=== PATIENT | female | born 1970 ===

== ENCOUNTER → 2020-02-19 16:17 | Outpatient (BNVA) | payer OTHER, SELFPAY | PROVIDERS: PCP Internal Medicine; Referring Provider Internal Medicine; Visit Provider Student in an Organized Health Care Education/Training Program | DX: M32.9 Systemic lupus erythematosus, unspecified (principal) | CPT/HCPCS: 99212 ==

== ENCOUNTER → 2020-04-04 15:50 | Outpatient (BNVA) | payer OTHER, SELFPAY | PROVIDERS: PCP Internal Medicine; Referring Provider Internal Medicine; Visit Provider Hospitalist | DX: Z76.89 Persons encountering health services in other specified circumstances (principal) ==

== ENCOUNTER 2020-06-25 13:44 | Outpatient (REF) | payer OTHER, SELFPAY ==
[2020-06-26 10:19] LABS: BV Int Neg Control Negative (Negative); BV Int Pos Control Positive (Positive)
[2020-06-26 20:51] LABS: C. trachomatis RNA TMA NOT DETECTED (NOT DETECTED); N. gonorrhoeae RNA TMA NOT DETECTED (NOT DETECTED)
== END 2020-06-25 13:45 | disposition home or self-care (01) ==
LOC: HO.LAB 13:44
PROVIDERS: PCP Internal Medicine; Visit Provider Obstetrics & Gynecology
DX: Z01.419 Encounter for gynecological examination (general) (routine) without abnormal findings (principal); N89.8 Other specified noninflammatory disorders of vagina
CPT/HCPCS: 36415; 87480; 87491; 87510; 87591; 87660

== ENCOUNTER 2020-07-15 08:38 | Outpatient (RCR) | payer OTHER, SELFPAY | END 2020-10-21 08:00 | disposition home or self-care (01) | LOC: HO.PT 08:38 | PROVIDERS: PCP Internal Medicine; Visit Provider Obstetrics & Gynecology | DX: N39.3 Stress incontinence (female) (male) (principal) | CPT/HCPCS: 97110; 97112; 97162 ==

== ENCOUNTER → 2020-08-04 15:32 | Outpatient (BNVA) | payer OTHER, SELFPAY | PROVIDERS: PCP Internal Medicine; Visit Provider Hospitalist | DX: J45.40 Moderate persistent asthma, uncomplicated (principal); M32.9 Systemic lupus erythematosus, unspecified | CPT/HCPCS: 99212 ==

== ENCOUNTER 2020-09-30 07:44 | Outpatient (REF) | payer OTHER, SELFPAY ==
--- NOTE | ~2020-09-30 | US_ITS ---
EXAMINATION: US ABDOMEN COMPLETE CLINICAL INFORMATION: Abdominal distention (gaseous). COMPARISON: Ultrasound abdomen complete dated 10/15/2015 and 11/05/2013. TECHNIQUE: Real-time imaging of the abdominal viscera. FINDINGS: PANCREAS: Normal. ABDOMINAL AORTA: The proximal, mid, and distal segments are normal in caliber. INFERIOR VENA CAVA: Visualized portions are normal. LIVER: Within the left hepatic lobe, a 5 mm simple cyst is incidentally seen. The liver is normal in size. The liver contour is normal. There is diffuse increased liver parenchymal echotexture. No focal hepatic lesion. There is no intrahepatic biliary duct dilatation seen. GALLBLADDER: There are small layering gallstones, without evidence of gallbladder wall thickening or pericholecystic fluid. COMMON BILE DUCT: Normal in caliber measuring 0.4 cm in diameter. RIGHT KIDNEY: Normal. No hydronephrosis. No renal calculi or focal parenchymal lesions. The kidney measures 13.0 cm in maximum dimension. LEFT KIDNEY: At the interpolar aspect, a 1.3 cm anechoic, simple cyst is seen, consistent with CT findings of 08/02/2019 (5:60 and 4:525). No hydronephrosis or renal calculi. The kidney measures 13.5 cm in maximum dimension. SPLEEN: A small splenule is noted. The spleen measures 12.7 cm in maximum dimension. FREE FLUID: None. US/US abdomen complete IMPRESSION: 1. There is generalized increase in hepatic echotexture, consistent with fatty infiltration or hepatocellular disease. Please correlate clinically. No focal hepatic mass or intrahepatic biliary dilatation is seen. 2. There is cholelithiasis, without cholecystitis or choledocholithiasis. 3. Simple left hepatic and left renal cyst are incidentally noted.
== END 2020-09-30 07:45 | disposition home or self-care (01) ==
LOC: HO.US 07:44
PROVIDERS: Visit Provider Internal Medicine
DX: R14.0 Abdominal distension (gaseous) (principal)
CPT/HCPCS: 76700

== ENCOUNTER → 2020-10-10 12:10 | Outpatient (BNVA) | payer OTHER, SELFPAY | PROVIDERS: PCP Internal Medicine; Visit Provider Physician Assistant | DX: E66.01 Morbid (severe) obesity due to excess calories (principal); Z68.41 Body mass index [BMI] 40.0-44.9, adult | CPT/HCPCS: 99202 ==

== ENCOUNTER → 2020-11-04 15:59 | Outpatient (BNVA) | payer OTHER, SELFPAY | PROVIDERS: PCP Internal Medicine; Referring Provider Internal Medicine; Visit Provider Physician Assistant | DX: E66.01 Morbid (severe) obesity due to excess calories (principal); Z68.41 Body mass index [BMI] 40.0-44.9, adult | CPT/HCPCS: 99212 ==

== ENCOUNTER → 2020-11-07 10:22 | Outpatient (BNVA) | payer OTHER, SELFPAY | PROVIDERS: PCP Internal Medicine; Referring Provider Internal Medicine; Visit Provider Surgery | DX: K80.20 Calculus of gallbladder without cholecystitis without obstruction (principal) | CPT/HCPCS: 99202 ==

== ENCOUNTER 2020-11-12 06:37 | Outpatient (REF) | payer OTHER, SELFPAY ==
--- NOTE | ~2020-11-12 | XR_ITS ---
EXAMINATION: XR CHEST CLINICAL INFORMATION: Obesity COMPARISON: Previous chest x-ray most recent May [address] July 2019 TECHNIQUE: 2 views of the chest were obtained. FINDINGS: The cardiac and mediastinal contours are normal. Lungs are clear. There is no pleural effusion or pneumothorax. Bony structures are unremarkable. XR/XR chest 2V IMPRESSION: Unremarkable examination.
--- NOTE | ~2020-11-12 | XR_ITS ---
EXAMINATION: XR HIP, RIGHT XR KNEE, RIGHT XR KNEE, LEFT CLINICAL INFORMATION: Systemic lupus with pain. COMPARISON: Knee studies of 09/07/2012 TECHNIQUE: Three views of each knee and 2 views of the right hip. FINDINGS: There is no evidence of acute fracture or dislocation of the right hip. There is minimal spurring seen about the superior acetabulum. Joint space appears to be narrowed superiorly. No destructive bony lesions appreciated. Views of the right knee do not demonstrate any evidence of acute fracture or dislocation. Knee joint spaces are maintained. No effusion is appreciated. Views of the left knee do not demonstrate any evidence of acute fracture or dislocation. Left knee joint spaces are maintained. No left knee effusion. XR/XR knee LT 3V IMPRESSION: No significant abnormality seen involving the knees bilaterally. Mild degenerative change of the right hip.
--- NOTE | ~2020-11-12 | XR_ITS ---
EXAMINATION: XR HIP, RIGHT XR KNEE, RIGHT XR KNEE, LEFT CLINICAL INFORMATION: Systemic lupus with pain. COMPARISON: Knee studies of 09/07/2012 TECHNIQUE: Three views of each knee and 2 views of the right hip. FINDINGS: There is no evidence of acute fracture or dislocation of the right hip. There is minimal spurring seen about the superior acetabulum. Joint space appears to be narrowed superiorly. No destructive bony lesions appreciated. Views of the right knee do not demonstrate any evidence of acute fracture or dislocation. Knee joint spaces are maintained. No effusion is appreciated. Views of the left knee do not demonstrate any evidence of acute fracture or dislocation. Left knee joint spaces are maintained. No left knee effusion. XR/XR knee RT 3V IMPRESSION: No significant abnormality seen involving the knees bilaterally. Mild degenerative change of the right hip.
--- NOTE | ~2020-11-12 | XR_ITS ---
EXAMINATION: XR HIP, RIGHT XR KNEE, RIGHT XR KNEE, LEFT CLINICAL INFORMATION: Systemic lupus with pain. COMPARISON: Knee studies of 09/07/2012 TECHNIQUE: Three views of each knee and 2 views of the right hip. FINDINGS: There is no evidence of acute fracture or dislocation of the right hip. There is minimal spurring seen about the superior acetabulum. Joint space appears to be narrowed superiorly. No destructive bony lesions appreciated. Views of the right knee do not demonstrate any evidence of acute fracture or dislocation. Knee joint spaces are maintained. No effusion is appreciated. Views of the left knee do not demonstrate any evidence of acute fracture or dislocation. Left knee joint spaces are maintained. No left knee effusion. XR/XR hip RT min 2V IMPRESSION: No significant abnormality seen involving the knees bilaterally. Mild degenerative change of the right hip.
[2020-11-12 07:13] LABS: MANUAL DIFF FLAG NO
[2020-11-12 07:14] LABS: Basophils Absolute Auto 0.1 X10*3/uL (0.0-0.2); Basophils Percent Auto 0.7 % (0-2); Eosinophils Absolute Auto 0.4 X10*3/uL (0.0-0.4); Eosinophils Percent Auto 5.1 % (0-4); Hematocrit 38.8 % (37-47); Hemoglobin 12.8 g/dl (12.0-16.0); Imm Gran Abs Auto 0.04 X10*3/uL (0.00-0.03); Imm Gran Pct Auto 0.5 % (0.0-0.4); Lymphocytes Absolute Auto 2.3 X10*3/uL (1.2-4.9); Lymphocytes Percent Auto 25.9 % (20-40); Mean Corpuscular Volume 84.9 fL (80-98); Mean Platelet Volume 12.7 fL (9.4-12.3); Monocytes Absolute Auto 0.4 X10*3/uL (0.1-1.2); Monocytes Percent Auto 4.4 % (2-11); Neutrophils Absolute Auto 5.5 X10*3/uL (2.0-8.3); Neutrophils Percent Auto 63.4 % (45-73); Platelet Count 183 X10*3/uL (160-400); Red Blood Count 4.57 X10*6/uL (4.20-5.50); Red Cell Distribution Width 15.4 % (11.0-16.0); White Blood Count 8.7 X10*3/uL (4.8-10.8)
[2020-11-12 07:41] LABS: C Reactive Protein 3.29 mg/dL (< or = 0.50)
[2020-11-12 07:45] LABS: Alanine Aminotransferase 18 U/L (0-31); Alkaline Phosphatase 127 U/L (39-117); Anion Gap 11 (12-20); Aspartate Amino Transferase 15 U/L (5-31); Bilirubin Total 0.4 mg/dL (0.0-1.0); Blood Urea Nitrogen 8 mg/dL (9-16); C Reactive Protein 3.21 mg/dL (< or = 0.50); Calcium 9.2 mg/dL (8.4-10.2); Carbon Dioxide 25 mmol/L (22-29); Chloride 108 mmol/L (96-108); Cholesterol 188 mg/dL; Estimated Glomerular Filt Rate > 60; Glucose Fasting 109 mg/dL (60-99); HDL Cholesterol 44 mg/dL; Iron 50 mcg/dL (30-160); LDL Cholesterol Calculated 127 mg/dl; Percent Iron Saturation 17 % (15-50); Sodium 140 mmol/L (135-145); Total Iron Binding Capacity 289 mcg/dL (228-428); Total Protein 7.1 g/dL (6.5-8.0); Triglycerides 85 mg/dL; Unsaturated Iron Binding 239 ug/dL
[2020-11-12 08:03] LABS: Thyroid Stimulating Hormone 3.48 uIU/mL (0.32-4.0)
[2020-11-12 08:13] LABS: Ferritin 132 ng/mL (10-250); TSH reflex Free T4 3.69 uIU/mL (0.32-4.0)
[2020-11-12 08:14] LABS: Estimated Average Glucose 111 mg/dL; Hemoglobin A1c % 5.5 %
[2020-11-12 08:28] LABS: Erythrocyte Sedimentation Rate 38 MM/HR (0-20)
[2020-11-12 09:54] LABS: Appearance Urine HAZY; Color Urine YELLOW; Glucose Urine UA NEG (NEG); Leukocyte Esterase Urine TRACE (NEG); Nitrite Urine NEG (NEG); Specific Gravity - Urine 1.025 (1.005-1.025); Urine Blood NEG (NEG); Urine Ketones NEG (NEG); Urine Protein NEG (NEG-TRACE)
[2020-11-12 10:00] LABS: Bacteria Urine TRACE /LPF; RBC Urine 0 /HPF (0); Squamous Epithelial Cell Urine 4+ /LPF
[2020-11-12 12:13] LABS: Vitamin D 25-OH Total 21.8 ng/mL (>30)
[2020-11-12 17:15] LABS: Folate 12.4 ng/mL (> or = 4.0); Vitamin B12 768 pg/mL (200-900)
[2020-11-13 02:38] LABS: CT PCR NOT DETECTED (Not Detect.); NG PCR NOT DETECTED (Not Detect.)
[2020-11-13 10:03] LABS: Insulin Level Total 43.3 uIU/mL
[2020-11-13 11:56] LABS: Complement C3 114 mg/dL (83-193)
[2020-11-13 15:11] LABS: Anti DNA DS Antibody 1 IU/mL
[2020-11-13 19:45] LABS: Calcium (PTHI) 9.1 mg/dL (8.6-10.4); PTHI 74 pg/mL (14-64)
[2020-11-15 22:01] LABS: Zinc 75 mcg/dL (60-130)
[2020-11-17 06:11] LABS: Vitamin B1 7 nmol/L (8-30)
[2020-11-17 12:41] LABS: Vitamin D 25-OH, D2 <4 ng/mL; Vitamin D 25-OH, D3 24 ng/mL; Vitamin D 25-OH, Total 24 ng/mL (30-100)
[2020-11-21 18:26] LABS: Vitamin A 29 mcg/dL (38-98)
== END 2020-11-12 06:38 | disposition home or self-care (01) ==
LOC: HO.LAB 06:37
PROVIDERS: Obstetrics & Gynecology; Student in an Organized Health Care Education/Training Program; PCP Internal Medicine; Visit Provider Physician Assistant
DX: M32.9 Systemic lupus erythematosus, unspecified (principal); N89.8 Other specified noninflammatory disorders of vagina; E55.9 Vitamin D deficiency, unspecified; M25.551 Pain in right hip; E66.01 Morbid (severe) obesity due to excess calories
CPT/HCPCS: 36415; 71046; 73502; 73562; 80053; 80061; 81001; 82306; 82607; 82728; 82746; 83036; 83525; 83540; 83970; 84425; 84443; 84590; 84630; 85025; 85652; 86140; 86160; 86225; 87491; 87591

== ENCOUNTER 2020-11-18 14:17 | Outpatient (REF) | payer OTHER, SELFPAY ==
--- NOTE | ~2020-11-18 | MM_ITS ---
EXAMINATION: MM DIAGNOSTIC DIGITAL BREAST TOMOSYNTHESIS, BILATERAL CLINICAL INFORMATION: Due for yearly. Follow-up probable benign bilateral calcifications. No known family history breast cancer. The lifetime risk of breast cancer based on the Tyrer-Cuzick Model is 6%. COMPARISON: Mammography: 05/15/2019, 05/04/2019, 09/14/2018, 09/05/2018 (BI-RADS 0, 08/18/2017; targeted left breast ultrasound 05/04/2019. TECHNIQUE: Digital breast tomosynthesis is performed in both the craniocaudal and mediolateral oblique views along with computer-aided detection (CAD). Synthesized 2D images are generated from the tomosynthesis. Additional views are obtained: Left CC, bilateral magnification CC, bilateral magnification ML. FINDINGS: There are scattered areas of fibroglandular density (ACR BI-RADS breast composition Category b). Breast tissue composition borders on heterogeneously dense. Parenchymal pattern is similar to prior exams. There is no developing density or interval mass or architectural abnormality. There is a known cyst central anterior 12:00 left breast similar to prior mammography and left breast ultrasound 05/04/2019. Left breast calcifications for follow-up appears stable in number and distribution to prior diagnostic studies and now considered to be benign. Right breast calcifications for follow-up are overall increased in number since 2019. There are some scattered increased calcifications central breast on CC view since prior imaging 05/15/2020. Subtle of the calcifications show layering milk of calcium pattern, as also noted on the contralateral left side. Right breast calcifications remain probably benign and will be reassessed again in 6 months. Patient had to leave office prior to results reporting. Technologist to call patient with results. MM/MM tomosynthesis diagnostic BI IMPRESSION: 1. Right: Right breast calcifications are overall slightly increased since 2019 but remain probably benign with no focal pleomorphic types or ductal distribution. 2. Left: No significant changes from prior studies. Left breast calcifications are now considered to be benign. ASSESSMENT: BI-RADS 3: Probably Benign RECOMMENDATION: Diagnostic right mammography in 6 months. This patient's information was entered into a reminder system with a target due date for their next mammogram.
== END 2020-11-18 14:18 | disposition home or self-care (01) ==
LOC: HO.MAMMO 14:17
PROVIDERS: Visit Provider Physician Assistant
DX: R92.1 Mammographic calcification found on diagnostic imaging of breast (principal); E66.01 Morbid (severe) obesity due to excess calories; Z68.41 Body mass index [BMI] 40.0-44.9, adult; Z71.3 Dietary counseling and surveillance
CPT/HCPCS: 77062; 77066; 99211; 99212

== ENCOUNTER 2020-11-18 16:45 | Outpatient (REF) | payer OTHER, SELFPAY ==
[2020-11-20 14:41] LABS: H Pylori Breath Test NOT DETECTED (NOT DETECTED)
== END 2020-11-18 16:46 | disposition home or self-care (01) ==
LOC: HO.LNP 16:45
PROVIDERS: Visit Provider Physician Assistant
DX: E66.01 Morbid (severe) obesity due to excess calories (principal)
CPT/HCPCS: 83013

== ENCOUNTER → 2020-12-01 07:51 | Outpatient (BNVA) | payer OTHER, SELFPAY | PROVIDERS: PCP Internal Medicine; Visit Provider Dietitian, Registered | DX: E66.9 Obesity, unspecified (principal) | CPT/HCPCS: 97802 ==

== ENCOUNTER → 2020-12-03 14:38 | Outpatient (REF) | payer OTHER, SELFPAY ==
--- NOTE | 2020-12-03 14:43 | ECG_ITS ---
Test Reason : MORBID OBESITY Blood Pressure : / mmHG Vent. Rate : 076 BPM Atrial Rate : 076 BPM P-R Int : 130 ms QRS Dur : 080 ms QT Int : 370 ms P-R-T Axes : 028 033 038 degrees QTc Int : 416 ms Normal sinus rhythm Nonspecific T wave abnormality Abnormal ECG When compared to the previous EKG of No significant changes seen Referred By: Luz Maria Aguilera Electronically Signed By:LATISHA GALLAGHER MD
== END ==
LOC: HO.CARD 14:38
PROVIDERS: PCP Internal Medicine; Visit Provider Physician Assistant
DX: E66.01 Morbid (severe) obesity due to excess calories (principal)
CPT/HCPCS: 93005

== ENCOUNTER → 2021-01-07 08:09 | Outpatient (BNVA) | payer OTHER, SELFPAY | PROVIDERS: PCP Internal Medicine; Referring Provider Internal Medicine; Visit Provider Dietitian, Registered ==

== ENCOUNTER → 2021-01-15 08:11 | Outpatient (BNVA) | payer OTHER, SELFPAY | PROVIDERS: PCP Internal Medicine; Visit Provider Dietitian, Registered | DX: E66.01 Morbid (severe) obesity due to excess calories (principal) | CPT/HCPCS: 97803 ==

== ENCOUNTER → 2021-02-05 08:01 | Outpatient (BNVA) | payer OTHER, SELFPAY | PROVIDERS: PCP Internal Medicine; Referring Provider Surgery; Visit Provider Dietitian, Registered ==

== ENCOUNTER 2021-02-14 18:23 | Emergency (ER) | payer OTHER, SELFPAY ==
--- NOTE | ~2021-02-14 | CT_ITS ---
EXAMINATION: CT ABDOMEN AND PELVIS WITH CONTRAST CLINICAL INFORMATION: Left lower quadrant tenderness. Diverticulitis. Right upper quadrant abdominal pain. Cholecystitis. COMPARISON: Abdominal ultrasound from 09/30/2020. TECHNIQUE: Multidetector volumetric imaging was performed through the abdomen and pelvis after the administration of 85 mL of Omnipaque 350 intravenous contrast. Sagittal and coronal reformatted images were obtained on the technologist's workstation. This CT examination was performed using dose optimization techniques as appropriate, variously including the following: *Automated exposure control. *Adjustment of mA and/or kV according to patient size (this includes techniques or standardized protocols for targeted exams where dose is matched to indication/reason for exam; i.e. extremities or head). *Use of iterative reconstruction technique. DLP: 883 mGy-cm. FINDINGS: Lower Chest: Minimal bilateral dependent atelectasis. Otherwise, no diffuse or focal parenchymal abnormalities in the visualized lung bases. No demonstrated abnormalities of the visualized cardiac structures. Liver, Biliary Ducts, and Gallbladder: The liver is enlarged, measuring 20 cm in craniocaudal dimension. Generalized decrease in attenuation of the hepatic parenchyma relative to the splenic parenchyma. No demonstrated focal hepatic lesions or biliary ductal dilatation. The gallbladder is partially distended. Dependently layering calcified gallstones. No pericholecystic fluid or significant gallbladder wall thickening. Pancreas: The pancreas is normal in appearance. Adrenal Glands: The adrenal glands are normal in appearance. Spleen: The spleen is mildly enlarged, measuring 13.3 cm in long axis. Multiple subcentimeter calcified granulomas throughout the spleen. There is a 2.9 cm nodular lesion suggestive of a prominent splenule along the hilum of the spleen. Kidneys and Ureters: The kidneys demonstrate symmetric nephrograms without evidence of nephrolithiasis or hydronephrosis. There is a 1.2 cm exophytic cyst along the interpolar region of the left kidney. Multiple additional subcentimeter hypoattenuating lesions in the bilateral kidneys are too small to characterize by CT but statistically benign in etiology. No ureterolithiasis or hydroureter. Urinary Bladder: The urinary bladder is partially distended without focal wall thickening. No bladder calculi are demonstrated. Gastrointestinal System: The stomach is decompressed and therefore not well evaluated on this exam. The small bowel is of normal caliber without regions of abnormal wall enhancement. The cecum is folded into the right upper abdominal quadrant without evidence of obstruction. Otherwise, the colon is normal in appearance without focal wall thickening or pericolonic inflammatory change. Normal appendix. Genitourinary: There is a 1.5 cm hyperattenuating lesion in the anterior wall of the uterus suggestive of a uterine fibroid. No adnexal soft tissue masses. Intra-abdominal and Retroperitoneal Spaces: No intra-abdominal free fluid collections or gas. Faintly increased fat stranding throughout the mesenteric adipose tissue. Mildly increased number of subcentimeter lymph nodes scattered throughout the mesenteric adipose tissue. No pathologically enlarged mesenteric, retroperitoneal, or inguinal lymphadenopathy. Vasculature: The abdominal aorta is of normal contour and caliber. Musculoskeletal: Mild to moderate multilevel degenerative changes of the spine. Moderate degenerative disc disease at L5-S1. No lytic or sclerotic osseous lesions demonstrated. No soft tissue masses demonstrated. CT/CT abdomen pelvis w con IMPRESSION: 1. Nonspecific mild hepatosplenomegaly. Hepatic steatosis. 2. Cholelithiasis without evidence of cholecystitis. 3. Nonspecific mildly increased fat stranding and shotty lymph nodes throughout the mesentery. No pathologically enlarged lymphadenopathy. These changes are nonspecific and can be seen in the setting of a variety of etiologies, including idiopathic mesenteric panniculitis.
[2021-02-14 18:35] VITALS: BP 163/100; PULSE 99; RESP 18; TEMP 36.9; O2SAT 97; BMI 24.7
--- NOTE | 2021-02-14 19:09 | ED.GENADULT ---
HPI - General Adult General Chief complaint: Abdominal Pain Stated complaint: Abd pain Time Seen by Provider: 02/14/21 18:57 Source: patient Mode of arrival: ambulatory Limitations: no limitations History of Present Illness HPI narrative: 51-year-old female who presents emergency department for evaluation of lower abdominal pain. She states that the pain started yesterday. The pain came on gradually and got progressively worse. She describes the pain as a squeezing/stretching like pain which is constant but waxes and wanes in intensity. The pain is 8/10 at its worst. The patient had associated nausea with no vomiting. She also states that she has had 5 soft, diarrheal stools today. She states that after last soft stool she noted bright red blood on the toilet paper. She states she was feeling hot and cold but did not take her temperature. She denied frequency, urgency or dysuria. She denied chest pain, shortness of breath, dyspnea on exertion, or cough. The patient states that she was having right upper quadrant pain 3 weeks prior and had an ultrasound and was told that she had gallstones. She states she did follow-up with surgeon who did not recommend surgery at this time. And looking at the patient's radiology studies she had an ultrasound done on 09/30/2020 which revealed cholelithiasis without cholecystitis or choledocholithiasis, there were small layering gallstones without evidence gallbladder wall thickening or pericholecystic fluid. Patient had fatty liver and a 5 mm liver cyst. Related Data Home Medications Medication Instructions Recorded Confirmed albuterol sulfate 90 mcg/actuation 2 puff INHALATION Q6H PRN 02/19/20 11/18/20 aerosol inhaler ascorbic acid (vitamin C) 1,000 mg 500 mg PO DAILY 10/10/20 11/18/20 tablet (Vitamin C) lorazepam 0.5 mg tablet 0.5 mg PO DAILY PRN 10/10/20 11/18/20 turmeric 400 mg capsule 400 mg PO DAILY cap 11/18/20 11/18/20 Previous Rx's Medication Instructions Recorded budesonide-formoterol HFA 160 2 puff INHALATION BID 30 Days 08/04/20 mcg-4.5 mcg/actuation aerosol #10.2 g inhaler (Symbicort) montelukast 10 mg tablet 10 mg PO BEDTIME 30 Days #30 tab 08/04/20 (Singulair) cetirizine 10 mg tablet 10 mg PO DAILY #30 tab 10/30/20 cholecalciferol (vitamin D3) 1,250 1,250 mcg PO QWEEK 28 Days #4 cap 11/17/20 mcg (50,000 unit) capsule thiamine HCl (vitamin B1) 100 mg 100 mg PO DAILY 30 Days #30 tab 11/17/20 tablet furosemide 20 mg tablet 20 mg PO QAM 90 Days #90 tab 11/24/20 Allergies Allergy/AdvReac Type Severity Reaction Status Date / Time Seasonal Allergies Allergy Severe Difficulty Verified 11/18/20 16:29 Breathing Review of Systems Review of Systems: Yes all other systems are reviewed and are negative [facility] Past Medical History [facility] Narrative: Social history: The patient denies tobacco, alcohol and drug use. Medical History Abdominal bloating Asthma BMI 40.0-44.9, adult Cholelithiasis Family history of obesity History of asthma History of diastolic dysfunction History of vitamin D deficiency Hx of coronary artery disease Hx of hyperlipidemia Hx of systemic lupus erythematosus (SLE) Hx of varicose veins Lupus Lymphedema Morbid obesity Right hip pain Vitamin B1 deficiency Vitamin D deficiency Surgical History History of ear surgery Hx of cardiac cath Hx of tubal ligation Family History Family History Father Diabetes Cancer Paternal Grandfather Diabetes Maternal Aunt Cancer Mother Sudden Sister Arthritis Rheumatoid arthritis Hypothyroidism Sister No problems noted. Sister No problems noted. Brother Diabetes Brother No problems noted. Son No problems noted. Daughter No problems noted. Daughter No problems noted. Daughter Lupus Social History Social History Alcohol intake: never Patient Tobacco Use Status: Never used Tobacco Use of substances other than those prescribed or required for medical reasons: No Advance Directives: No Advance Directives Information Provided: Yes Gender identity: Female Physical Exam Vital Signs: Vital Signs: Last Vital Signs Temp 97.0 F 02/14/21 21:08 Pulse 76 02/14/21 21:08 Resp 16 02/14/21 21:08 BP 121/56 L 02/14/21 21:08 Pulse Ox 99 02/14/21 21:08 Body Mass Index 24.7 Const: General: cooperative and no acute distress Orientation/consciousness: oriented to person and oriented to place Limitations: no limitations HENMT: Head: Yes normal to inspection, Yes normocephalic and Yes atraumatic Ears: external ears normal General nose exam: Normal external nose present Face and sinus: Yes normal facial exam Mouth: Normal oral and palatal mucosa present Throat: Yes posterior oropharynx normal Eyes: General: appearance normal, both eyes and all related structures Pupils: Equal, round and reactive pupils present Neck: Neck: Yes normal visual inspection, Yes no lymphadenopathy, Yes trachea midline and Yes supple Chest: Chest palpation & inspection: normal inspection of the chest and normal palpation of entire chest wall Resp: Effort & Inspection: normal respiratory effort and able to speak in complete sentences Auscultation: clear to auscultation bilaterally Cardio: Rate: regular rate Rhythm: regular rhythm Heart sounds: S1 normal heart sound present, S2 normal heart sound present and no murmurs GI: Inspection: Yes obesity Palpation (GI): Soft to palpation, Tenderness to palpation present (GI) in the LLQ (Moderate) and in the RUQ (Mild, negative Ochoa sign) and no guarding Auscultation: normal bowel sounds Rectal Exam - Female: External hemorrhoid(s) present (Small, nontender, non bleeding) and heme negative stool (Stool was soft and brown) : General: Yes no CVA tenderness Back/Spine/Pelvis: Back: no CVA tenderness Skin: General skin exam: no rashes or lesions noted Neuro: General: oriented to person and oriented to place Cranial nerves: Yes CN's II-XII intact bilaterally and Yes Equal, round and reactive pupils present Cognition (Neuro): normal cognition Motor exam (neuro): 5/5 motor strength present throughout Extrem: General: Yes normal to inspection Psych: Appearance: grossly normal Speech and movement: Normal speech and movement present Affect: normal affect Attitude: cooperative Thought process: Normal thought process present Thought content: Normal thought content present Course Course Course Narrative: 51-year-old female who presents emergency department for evaluation of gradual onset of left lower quadrant pain which started yesterday is gotten progressively worse, the pain is now 8/10. She did have 5 soft diarrheal stools with bright red blood on the toilet pain at the end of her last bowel movement.. Revealed an elevated blood pressure of 163/100 otherwise were unremarkable. Abdominal exam did reveal mild right upper quadrant tenderness and moderate left lower quadrant tenderness. I ordered a CBC, CMP, lipase, urinalysis, CT scan of the abdomen pelvis with IV contrast to evaluate her pain. The patient was treated with Toradol 30 mg IV, Zofran 4 mg IV and normal saline x1 L. 2212: The patient is feeling better after the above treatment. The patient's laboratory evaluation was unremarkable except for a slight elevation in her lipase of 93, I do not think that she has pancreatitis. CT scan of the abdomen pelvis revealed the followin. Nonspecific mild hepatosplenomegaly. Hepatic steatosis. ?2. Cholelithiasis without evidence of cholecystitis. ?3. Nonspecific mildly increased fat stranding and shotty lymph nodes throughout the mesentery. No pathologically enlarged lymphadenopathy. These changes are nonspecific and can be seen in the setting of a variety of etiologies, including idiopathic mesenteric panniculitis. Given this finding, I suspect the patient has a viral infection causing her abdominal pain and I did discuss this with her. The patient was advised to take Tylenol and ibuprofen for pain. She was given printed and verbal instructions and discharged home. Medical Decision Making Lab Data Result diagrams: 02/14/21 19:39 02/14/21 19:39 Labs: Lab Results 02/14/21 02/14/21 02/14/21 Range/Units 19:39 19:39 19:53 WBC 9.6 (4.8-10.8) X10*3/uL RBC 4.64 (4.20-5.50) X10*6/uL Hgb 13.1 (12.0-16.0) g/dl Hct 39.1 (37-47) % MCV 84.3 (80-98) fL MCH 28.2 (27.0-33.0) pg MCHC 33.5 (31.0-35.0) g/dl RDW 15.2 (11.0-16.0) % Plt Count 161 (160-400) X10*3/uL MPV 12.3 (9.4-12.3) fL Immature Gran % (Auto) 0.4 (0.0-0.4) % Neut % (Auto) 71.6 (45-73) % Lymph % (Auto) 18.2 L (20-40) % [place] % (Auto) 4.6 (2-11) % Eos % (Auto) 4.9 H (0-4) % Baso % (Auto) 0.3 (0-2) % Lymph # (Auto) 1.8 (1.2-4.9) X10*3/uL [place] # (Auto) 0.4 (0.1-1.2) X10*3/uL Eos # (Auto) 0.5 H (0.0-0.4) X10*3/uL Baso # (Auto) 0.0 (0.0-0.2) X10*3/uL Abs Immat Gran (auto) 0.04 H (0.00-0.03) X10*3/uL Absolute Neuts (auto) 6.9 (2.0-8.3) X10*3/uL Absolute Nucleated RBC 0.000 (0.0-0.012) X10*3/uL Nucleated RBC % (auto) 0.0 (0.0-0.2) /100WBC Sodium 138 (135-145) mmol/L Potassium 4.0 (3.3-5.1) mmol/L Chloride 104 (96-108) mmol/L Carbon Dioxide 27 (22-29) mmol/L Anion Gap 11 L (12-20) BUN 9 (9-16) mg/dL Creatinine 0.74 (0.5-1.4) mg/dL Estim Creat Clear Calc 76.6 Estimated GFR > 60 Random Glucose 108 (60-115) mg/dL Calcium 9.4 (8.4-10.2) mg/dL Total Bilirubin 0.3 (0.0-1.0) mg/dL AST 16 (5-31) U/L ALT 19 (0-31) U/L Alkaline Phosphatase 149 H (39-117) U/L Total Protein 7.2 (6.5-8.0) g/dL Albumin 4.2 (3.5-5.0) g/dL Lipase 93 H (8-78) U/L Urine Color STRAW Urine Appearance CLEAR Urine pH 6.0 (5.0-8.0) Ur Specific [place] 1.010 (1.005-1.025) Urine Protein NEG (NEG-TRACE) MG/DL Urine Glucose (UA) NEG (NEG) MG/DL Urine Ketones NEG (NEG) MG/DL Urine Blood 3+ H (NEG) Urine Nitrite NEG (NEG) Ur Leukocyte Esterase NEG (NEG) Urine RBC 30-49 H (0) /HPF Urine WBC 0 (0-4) /HPF Ur Squamous Epith Cells 2+ /LPF Uric Acid Crystals TRACE /LPF Urine Bacteria TRACE /LPF Discharge Plan Discharge Clinical Impression: Abdominal pain, Panniculitis Patient Disposition: Home, Self-Care Instructions: Abdominal Pain (ED) Additional Instructions: Your blood work was unremarkable. Your CT scan of the abdomen pelvis did not reveal any specific cause of the pain except you do have some lymph nodes that are swollen and the fat around your intestines is inflamed, this is called panniculitis. Panniculitis is usually caused by a viral infection and can give you abdominal pain. Take ibuprofen 200 mg pills, 3 pills every 6 hours as needed for pain. Take Tylenol (acetaminophen) 500 mg pills, 2 pills every 4 to 6 hours as needed for pain. Follow-up with your doctor in 2 days. Please return to the emergency department if your symptoms get worse or if you develop any symptoms that are concerning to you. Please follow the abdominal pain obstructions above. Prescriptions: No Action cetirizine 10 mg tablet 10 mg PO DAILY Qty: 30 RF: 11 cholecalciferol (vitamin D3) 1,250 mcg (50,000 unit) capsule 1,250 mcg PO QWEEK 28 Days Qty: 4 RF: 1 thiamine HCl (vitamin B1) 100 mg tablet 100 mg PO DAILY 30 Days Qty: 30 RF: 1 furosemide 20 mg tablet 20 mg PO QAM 90 Days Qty: 90 RF: 0 turmeric 400 mg capsule 400 mg PO DAILY RF: 0 albuterol sulfate 90 mcg/actuation HFA aerosol inhaler 2 puff inhalation Q6H PRNRF: 0 budesonide-formoterol [Symbicort] 160-4.5 mcg/actuation HFA aerosol inhaler 2 puff inhalation BID 30 Days Qty: 10.2 RF: 11 montelukast [Singulair] 10 mg tablet 10 mg PO BEDTIME 30 Days Qty: 30 RF: 6 ascorbic acid (vitamin C) [Vitamin C] 1,000 mg tablet 500 mg PO DAILY RF: 0 lorazepam 0.5 mg tablet 0.5 mg PO DAILY PRNRF: 0
--- NOTE | 2021-02-14 19:18 | PC.NURSE ---
at bedside for primary eval
--- NOTE | 2021-02-14 19:29 | PC.NURSE ---
I CLIP ON SUNGLASSES INSPECTOR DR ALEJANDRE DURING PATIENT RECTAL EXAM .
[2021-02-14 19:45] LABS: MANUAL DIFF FLAG NO
[2021-02-14 19:46] LABS: Basophils Percent Auto 0.3 % (0-2); Eosinophils Absolute Auto 0.5 X10*3/uL (0.0-0.4); Eosinophils Percent Auto 4.9 % (0-4); Hematocrit 39.1 % (37-47); Hemoglobin 13.1 g/dl (12.0-16.0); Imm Gran Abs Auto 0.04 X10*3/uL (0.00-0.03); Imm Gran Pct Auto 0.4 % (0.0-0.4); Lymphocytes Absolute Auto 1.8 X10*3/uL (1.2-4.9); Lymphocytes Percent Auto 18.2 % (20-40); Mean Corpuscular HGB Conc 33.5 g/dl (31.0-35.0); Mean Corpuscular Hemoglobin 28.2 pg (27.0-33.0); Mean Corpuscular Volume 84.3 fL (80-98); Mean Platelet Volume 12.3 fL (9.4-12.3); Monocytes Absolute Auto 0.4 X10*3/uL (0.1-1.2); Monocytes Percent Auto 4.6 % (2-11); Neutrophils Absolute Auto 6.9 X10*3/uL (2.0-8.3); Neutrophils Percent Auto 71.6 % (45-73); Platelet Count 161 X10*3/uL (160-400); Red Blood Count 4.64 X10*6/uL (4.20-5.50); Red Cell Distribution Width 15.2 % (11.0-16.0); White Blood Count 9.6 X10*3/uL (4.8-10.8)
[2021-02-14] MEDS: ondansetron HCL 4 MG/2 ML VIAL IVPUSH (19:55)
[2021-02-14] MEDS: Ketorolac Tromethamine 15 MG/ML VIAL 30 MG IVPUSH (19:56)
[2021-02-14] MEDS: 0.9 % Sodium Chloride 1,000 ML 999 ML IV (20:00)
[2021-02-14 20:03] LABS: Alanine Aminotransferase 19 U/L (0-31); Albumin Level 4.2 g/dL (3.5-5.0); Alkaline Phosphatase 149 U/L (39-117); Anion Gap 11 (12-20); Aspartate Amino Transferase 16 U/L (5-31); Bilirubin Total 0.3 mg/dL (0.0-1.0); Blood Urea Nitrogen 9 mg/dL (9-16); Calcium 9.4 mg/dL (8.4-10.2); Carbon Dioxide 27 mmol/L (22-29); Chloride 104 mmol/L (96-108); Creatinine Clr Calc Pharmacy 76.6; Estimated Glomerular Filt Rate > 60; Glucose Random 108 mg/dL (60-115); Lipase 93 U/L (8-78); Sodium 138 mmol/L (135-145); Total Protein 7.2 g/dL (6.5-8.0)
[2021-02-14 20:05] LABS: Appearance Urine CLEAR; Color Urine STRAW; Glucose Urine UA NEG (NEG); Leukocyte Esterase Urine NEG (NEG); Nitrite Urine NEG (NEG); UACC Culture Trigger NO; Urine Blood 3+ (NEG); Urine Ketones NEG (NEG); Urine Protein NEG (NEG-TRACE)
[2021-02-14 20:09] LABS: RBC Urine 30-49 /HPF (0)
[2021-02-14 20:10] LABS: Squamous Epithelial Cell Urine 2+ /LPF
[2021-02-14 20:11] LABS: WBC Urine 0 /HPF (0-4)
[2021-02-14 20:12] LABS: Bacteria Urine TRACE /LPF
[2021-02-14 20:13] LABS: Uric Acid Crystals Urine TRACE /LPF
[2021-02-14] MEDS: iohexoL 350 MG/ML 100 ML INFUS..BTL IV (20:39)
[2021-02-14 21:00] VITALS: RESP 16
[2021-02-14 21:08] VITALS: BP 121/56; PULSE 76; RESP 16; TEMP 36.1; O2SAT 99
[2021-02-14 22:19] VITALS: BP 101/57; PULSE 74; RESP 16; TEMP 36.2; O2SAT 100
== END 2021-02-14 22:33 | disposition home or self-care (01) ==
PROVIDERS: Emergency Provider Emergency Medicine Emergency Medical Services; PCP Internal Medicine
DX: M79.3 Panniculitis, unspecified (principal); R10.9 Unspecified abdominal pain; Z79.899 Other long term (current) drug therapy
CPT/HCPCS: 36415; 74177; 80053; 81001; 83690; 85025; 96361; 96374; 96375; 99284; J1885; J2405; Q9967

== ENCOUNTER → 2021-02-16 15:01 | Outpatient (BNVA) | payer OTHER, SELFPAY | PROVIDERS: PCP Internal Medicine; Visit Provider Hospitalist | DX: J45.40 Moderate persistent asthma, uncomplicated (principal); M32.9 Systemic lupus erythematosus, unspecified; D72.19 Other eosinophilia; R05.3 Chronic cough | CPT/HCPCS: 99212 ==

== ENCOUNTER → 2021-05-07 15:25 | Outpatient (BNVA) | payer OTHER, SELFPAY | PROVIDERS: PCP Internal Medicine; Visit Provider Hospitalist | DX: J45.41 Moderate persistent asthma with (acute) exacerbation (principal); M32.9 Systemic lupus erythematosus, unspecified; R05.3 Chronic cough; D72.19 Other eosinophilia | CPT/HCPCS: 99212 ==

== ENCOUNTER → 2021-05-18 13:01 | Outpatient (BNVA) | payer MEDICAID, SELFPAY | PROVIDERS: PCP Internal Medicine; Referring Provider Internal Medicine; Visit Provider Nurse Practitioner | DX: Z12.11 Encounter for screening for malignant neoplasm of colon (principal); D12.6 Benign neoplasm of colon, unspecified; Z80.0 Family history of malignant neoplasm of digestive organs | CPT/HCPCS: 99202 ==

== ENCOUNTER 2021-05-22 13:49 | Outpatient (REF) | payer OTHER, SELFPAY ==
--- NOTE | ~2021-05-22 | MM_ITS ---
EXAMINATION: MM DIAGNOSTIC DIGITAL BREAST TOMOSYNTHESIS, RIGHT CLINICAL INFORMATION: Six-month followup right breast calcifications. The lifetime risk of breast cancer based on the Tyrer-Cuzick Model is 6.8%. COMPARISON: Mammography: 11/18/2020 and studies dating back to 11/05/2013 TECHNIQUE: Digital breast tomosynthesis is performed in both the craniocaudal and mediolateral oblique views along with computer-aided detection (CAD). Synthesized 2-D images are generated from the tomosynthesis. Additional spot magnification views in craniocaudal and 90-degree mediolateral views performed. FINDINGS: There are scattered areas of fibroglandular density (ACR BI-RADS breast composition Category b). There are again noted to be some stable circumscribed densities about the right breast. There is also grouped and scattered calcifications present which appear similar to previous study without definite increase in number or development of abnormal mass. The grouping of calcifications about the lateral aspect appears stable as well as the retroareolar grouping. Some of the calcifications are seen to change configuration from rounded to meniscus appearance such as milk of calcium within microcysts. Not all of the calcifications show this, however. Recommend 6-month bilateral mammography with magnification views of the right breast at that time. Results are provided to the patient at time of visit by the technologist. MM/MM tomosynthesis diagnostic RT IMPRESSION: No significant change in right breast calcifications. Six-month bilateral mammography suggested with magnification views of the right breast at that time. ASSESSMENT: BI-RADS 3: Probably Benign. RECOMMENDATION: Diagnostic mammography in 6 months. This patient's information was entered into a reminder system with a target due date for their next mammogram.
== END 2021-05-22 13:50 | disposition home or self-care (01) ==
LOC: HO.MAMMO 13:49
PROVIDERS: PCP Internal Medicine; Visit Provider Internal Medicine
DX: R92.1 Mammographic calcification found on diagnostic imaging of breast (principal)
CPT/HCPCS: 77061; 77065

== ENCOUNTER 2021-08-26 07:28 | Day surgery (SDC) | payer OTHER, SELFPAY ==
[2021-08-21 09:46] VITALS: BMI 43.9
--- NOTE | 2021-08-25 11:45 | HO.ANESPROP2 ---
Documented by User: Nicki Young NP 08/25/21 11:47 HPI - Anesthesia Eval Consult details Narrative: 51yo F for Colonoscopy ? daily prednisone PMFSH Active Problems Active Problems: All Active Problems (Updated 08/20/21 @ 11:09 by Sloane Funez PA-C) Osteopenia (Acute ~2019) Tubular adenoma of colon (Acute ~2016) Family history of colon cancer in father (Acute) Pancolitis (Acute) Lupus (Acute) Asthma (Acute) Morbid obesity (Acute) Lymphedema (Acute) Abdominal bloating (Acute) Right hip pain (Acute) Cholelithiasis (Acute) BMI 40.0-44.9, adult (Acute) Vitamin B1 deficiency (Acute) Vitamin D deficiency (Acute) Mild episode of recurrent major depressive disorder (Acute) Chronic cough (Acute) Eosinophilia (Acute) Hepatic steatosis (Acute) Abdominal pain (Acute) Past Medical History Medical History (Updated 08/20/21 @ 11:09 by Sloane Funez PA-C) Abdominal bloating Asthma BMI 40.0-44.9, adult Cholelithiasis Chronic cough Eosinophilia History of asthma History of diastolic dysfunction History of vitamin D deficiency Hx of coronary artery disease Hx of hyperlipidemia Hx of systemic lupus erythematosus (SLE) Hx of varicose veins Lupus Lymphedema Morbid obesity Osteopenia (~2019) Right hip pain Tubular adenoma of colon (~2016) Venous insufficiency Vitamin B1 deficiency Vitamin D deficiency Family History Family History (Updated 02/18/21 @ 13:04 by RHETT Valentine) Father Diabetes Cancer Paternal Grandfather Diabetes Maternal Aunt Cancer Mother Sudden Sister Arthritis Rheumatoid arthritis Hypothyroidism Sister No problems noted. Sister No problems noted. Brother Diabetes Brother No problems noted. Son No problems noted. Daughter No problems noted. Daughter No problems noted. Daughter Lupus Surgical History Surgical History (Updated 08/20/21 @ 11:05 by Sloane Funez PA-C) History of cardiac cath History of colonoscopy History of ear surgery History of foot surgery History of hysteroscopy History of tubal ligation (~1992) Social History Social History Housing: House Alcohol intake: never Patient Tobacco Use Status: Never used Tobacco Second Hand Smoke Exposure: No Use of substances other than those prescribed or required for medical reasons: No Are you DNR?: No Advance Directives: No Advance Directives Information Provided: Yes service: No Current occupational status: employed Gender identity: Female Meds Allergies Allergy/AdvReac Type Severity Reaction Status Date / Time Seasonal Allergies Allergy Severe Difficulty Verified 05/18/21 13:10 Breathing Home Medications Medication Instructions Recorded Confirmed Last Taken Type albuterol sulfate 90 mcg/actuation 2 puff INHALATION Q6H PRN 02/19/20 02/18/21 Unknown History aerosol inhaler ascorbic acid (vitamin C) 1,000 mg 500 mg PO DAILY 10/10/20 02/18/21 Unknown History tablet (Vitamin C) lorazepam 0.5 mg tablet 0.5 mg PO DAILY PRN 10/10/20 02/18/21 Unknown History turmeric 400 mg capsule 400 mg PO DAILY cap 11/18/20 02/18/21 Unknown History zinc 50 mg tablet 50 mg PO DAILY 05/07/21 Unknown History Exam Exam Date and Time: August 25, 2021 1145 Height,Weight and Vital Signs: Height 5 ft 2 in Weight 108.862 kg Pertinent Lab Results Pertinent Lab Results: Laboratory Tests 02/14/21 02/14/21 19:39 19:39 WBC 9.6 Hgb 13.1 Hct 39.1 Plt Count 161 Sodium 138 Potassium 4.0 Chloride 104 Carbon Dioxide 27 BUN 9 Creatinine 0.74 Narrative Narrative: EKG 11/2020 Vent. Rate : 076 BPM ? ? Atrial Rate : 076 BPM ?? P-R Int : 130 ms? QRS Dur : 080 ms ? ? QT Int : 370 ms ? ? ? P-R-T Axes : 028 033 038 degrees ?? QTc Int : 416 ms ? Normal sinus rhythm Nonspecific T wave abnormality Abnormal ECG When compared to the previous EKG of No significant changes seen Documented by User: Kassi Betts MD 08/26/21 08:14 [facility] Past Medical History Medical History (Updated 08/20/21 @ 11:09 by Sloane Funez PA-C) Abdominal bloating Asthma BMI 40.0-44.9, adult Cholelithiasis Chronic cough Eosinophilia History of asthma History of diastolic dysfunction History of vitamin D deficiency Hx of coronary artery disease Hx of hyperlipidemia Hx of systemic lupus erythematosus (SLE) Hx of varicose veins Lupus Lymphedema Morbid obesity Osteopenia (~2019) Right hip pain Tubular adenoma of colon (~2016) Venous insufficiency Vitamin B1 deficiency Vitamin D deficiency Family History Family History (Updated 02/18/21 @ 13:04 by RHETT Valentine) Father Diabetes Cancer Paternal Grandfather Diabetes Maternal Aunt Cancer Mother Sudden Sister Arthritis Rheumatoid arthritis Hypothyroidism Sister No problems noted. Sister No problems noted. Brother Diabetes Brother No problems noted. Son No problems noted. Daughter No problems noted. Daughter No problems noted. Daughter Lupus Family history of problems with anesthesia: No Surgical History Surgical History (Updated 08/20/21 @ 11:05 by Sloane Funez PA-C) History of cardiac cath History of colonoscopy History of ear surgery History of foot surgery History of hysteroscopy History of tubal ligation (~1992) History of Problems with Anesthesia: No Social History Social History Housing: House Alcohol intake: never Patient Tobacco Use Status: Never used Tobacco Second Hand Smoke Exposure: No Use of substances other than those prescribed or required for medical reasons: No Are you DNR?: No Advance Directives: No Advance Directives Information Provided: Yes service: No Current occupational status: employed Gender identity: Female Meds Allergies Allergy/AdvReac Type Severity Reaction Status Date / Time Seasonal Allergies Allergy Severe Difficulty Verified 05/18/21 13:10 Breathing Home Medications Medication Instructions Recorded Confirmed Last Taken Type albuterol sulfate 90 mcg/actuation 2 puff INHALATION Q6H PRN 02/19/20 02/18/21 Unknown History aerosol inhaler ascorbic acid (vitamin C) 1,000 mg 500 mg PO DAILY 10/10/20 02/18/21 Unknown History tablet (Vitamin C) lorazepam 0.5 mg tablet 0.5 mg PO DAILY PRN 10/10/20 02/18/21 Unknown History turmeric 400 mg capsule 400 mg PO DAILY cap 11/18/20 02/18/21 Unknown History zinc 50 mg tablet 50 mg PO DAILY 05/07/21 Unknown History Exam Airway Mallampati Class: III TM Dist: >3cm Neck ROM: Full Heart: rrr Lungs: cta Assessment and Plan Assessment Anesthesia Assessment: Anesthesia Plan Discussed and Chart Reviewed Final Anesthetic Review Family History of Problems with Anesthesia: No History of Problems with Anesthesia: No NPO: Yes ASA Class: III Final Preanesthetic Review: No Changes in Pt Med Stat, Meds/Allgs Chart Reviewed and Consent Obtained/Reviewed Patient Risk: Intermediate Procedure Risk: Intermediate Anesthetic Plan Anesthetic Plan: MAC: Disposition: Standard PACU
--- NOTE | 2021-08-26 07:03 | MHC.SHP ---
Pre-Procedural Eval Section A Date of Service: 08/26/21 Section B Chief Complaint: benign neoplasm of colon Details of Present Illness: Fh of cRC in father Relevant Family History (Specify if Yes): Yes Relevant Social History: None Present Medications: see Short Stay Collaborative assessment Medical History: Significant History (Abdominal bloating Asthma BMI 40.0-44.9, adult Cholelithiasis Chronic cough Eosinophilia History of asthma History of diastolic dysfunction History of vitamin D deficiency Hx of coronary artery disease Hx of hyperlipidemia Hx of systemic lupus erythematosus (SLE) Hx of varicose veins Lupus Lymphedem) History of Previous Operations: Relevant previous surgery/procedure and date(s) (History of cardiac cath History of colonoscopy History of ear surgery History of foot surgery History of hysteroscopy History of tubal ligation (~1992)) Allergies: Allergies Allergy/AdvReac Type Severity Reaction Status Date / Time Seasonal Allergies Allergy Severe Difficulty Verified 05/18/21 13:10 Breathing Review of Systems Sugical H&P ROS: Negative: Constitution, Cardiovascular, Respiratory, Neurological, Psychiatric, Hem-Onc, Allergic/Immunologic, Gastrointestinal, Genitourinary, Musculoskeletal, Integumentary, Endocrine and Eyes/Ears/Nose/Throat Exam Surgical H&P Exam: Normal: HEENT, Normal: Heart, Normal: Lungs, Normal: Extremities, Normal: Abdomen, Normal: Skin and Normal: Neurological Plan Diagnosis/Plan: Unchanged I have reviewed the history and physical and performed a pertinent physical examination on my patient. No changes have occurred unless specified.
[2021-08-26 07:44] VITALS: BP 147/92; PULSE 67; RESP 18; TEMP 36.3; O2SAT 95
[2021-08-26] MEDS: Lactated Ringers 1,000 ML 50 ML IVCONT (08:20)
--- NOTE | 2021-08-26 09:06 | PM.OP ---
Brief Operative Note Date of Service: 08/26/21 Pre-op diagnosis: FH of CRC and personal hx of polyps Post-op diagnosis: same Procedure: see op note Surgeon: Guanakito Nolasco MD Anesthesia: MAC Was an Decision Analyst used for this Procedure?: No Estimated blood loss (mL): 0 Condition: stable Disposition: PACU
--- NOTE | 2021-08-26 09:06 | W.PM.OPN ---
Operative Note Operative Note Date of Service: 08/26/21 Narrative: Operative Information Procedure Description: Colonoscopy Indication: FH of CRC and personal hx of polyps Anesthesia: MAC COLONOSCOPY Instrument: Olympus variable stiffness ADULT scope 190L Colonoscopy Monitoring: Vital signs and clinical assessment, continuous EKG monitoring, Pulse oximetry, Carbon Dioxide monitoring and blood pressure monitoring were done throughout the procedure. Colon withdrawal time was 10 minutes. Procedure: The patient was placed in the left lateral decubitis position and pre-procedure medications were administered. After a digital rectal examination of the ano-rectum, the video colonoscope was inserted into the rectum and advanced through the colon to the cecum/TI. The colonoscope was slowly withdrawn in a retrograde panoramic fashion and the colon mucosa was carefully examined including a retroflexed view of the rectum. Findings and interventions are described below. Procedure Difficulty: easy Findings: Terminal Ileum-normal Cecum:normal right sided retroflexion was normal Ascending Colon: normal Transverse Colon -normal Descending Colon:normal Sigmoid Colon: 6-8 mm sessile polyp removed with cold forceps, prior tattoo was noted. Rectum: Retroflexion with small to moderate sized internal hemorrhoids, grade I, 8-9 mm sessile polyp removed w/ cold forceps Anorectum - normal Colon preparation: [place] Bowel Preparation Scale Right colon; 2 Transverse colon: 3 Left colon; 3 (0 = Unprepared colon segment with mucosa not seen due to solid stool that cannot be cleared. 1 = Portion of mucosa of the colon segment seen, but other areas of the colon segment not well seen due to staining, residual stool and/or opaque liquid. 2 = Minor amount of residual staining, small fragments of stool and/or opaque liquid, but mucosa of colon segment seen well. 3 = Entire mucosa of colon segment seen well with no residual staining, small fragments of stool or opaque liquid) Impression and Post Procedure Diagnosis: polyps internal hemorrhoids Plan: High fiber diet leaflet Avoid straining at stool, epsom salts and sitz bath, anusol supps or cream Repeat Colonoscopy in 5 years due to FH of CRC or earlier if clinically indicated she may have IBS--she was uncomfortable even with propofol on board she has a small pustule with surrounding cellulitis on the lower left abdomen, will send her home with amoxicillin and advise to use hot pack Above findings were reviewed with the patient and relevant handouts were provided if indicated.
[2021-08-26 09:08] VITALS: BP 116/73; PULSE 69; RESP 16; TEMP 36; O2SAT 97
[2021-08-26 09:23] VITALS: BP 131/92; PULSE 66; TEMP 36.3; O2SAT 99
--- NOTE | 2021-08-26 09:25 | PC.NURSE ---
md ro by bedside
== END 2021-08-26 10:42 ==
LOC: HO.SSS 07:28
PROVIDERS: PCP Internal Medicine; Visit Provider Internal Medicine Gastroenterology
PROC: 0DJD8ZZ Inspection of Lower Intestinal Tract, Via Natural or Artificial Opening Endoscopic (ICD-10-PCS; CPT 45378; principal; 2021-08-26 08:30)
DX: Z12.11 Encounter for screening for malignant neoplasm of colon (principal); Z86.010 Personal history of colon polyps; Z80.0 Family history of malignant neoplasm of digestive organs; K63.5 Polyp of colon; K62.1 Rectal polyp; K64.0 First degree hemorrhoids; K21.9 Gastro-esophageal reflux disease without esophagitis; J45.909 Unspecified asthma, uncomplicated; M32.9 Systemic lupus erythematosus, unspecified; I89.0 Lymphedema, not elsewhere classified; E66.01 Morbid (severe) obesity due to excess calories; Z68.41 Body mass index [BMI] 40.0-44.9, adult; L08.9 Local infection of the skin and subcutaneous tissue, unspecified
CPT/HCPCS: 45380; 88305

== ENCOUNTER → 2021-09-08 10:50 | Outpatient (BNVA) | payer OTHER, SELFPAY | PROVIDERS: PCP Internal Medicine; Referring Provider Internal Medicine; Visit Provider Nurse Practitioner | DX: D12.6 Benign neoplasm of colon, unspecified (principal); Z80.0 Family history of malignant neoplasm of digestive organs | CPT/HCPCS: 99212 ==

== ENCOUNTER 2021-09-29 14:35 | Outpatient (REF) | payer OTHER, SELFPAY ==
[2021-09-29 16:04] LABS: MANUAL DIFF FLAG NO
[2021-09-29 16:24] LABS: Basophils Absolute Auto 0.1 X10*3/uL (0.0-0.2); Basophils Percent Auto 0.7 % (0-2); Eosinophils Absolute Auto 0.4 X10*3/uL (0.0-0.4); Eosinophils Percent Auto 4.1 % (0-4); Hematocrit 41.5 % (37.0-47.0); Hemoglobin 13.5 g/dl (12.0-16.0); Imm Gran Abs Auto 0.05 X10*3/uL (0.00-0.03); Imm Gran Pct Auto 0.5 % (0.0-0.4); Lymphocytes Absolute Auto 2.4 X10*3/uL (1.2-4.9); Lymphocytes Percent Auto 22.2 % (20-40); Mean Corpuscular HGB Conc 32.5 g/dl (31.0-35.0); Mean Corpuscular Hemoglobin 27.6 pg (27.0-33.0); Mean Corpuscular Volume 84.7 fL (80.0-98.0); Mean Platelet Volume 12.4 fL (9.4-12.3); Monocytes Absolute Auto 0.5 X10*3/uL (0.1-1.2); Monocytes Percent Auto 4.7 % (2-11); Neutrophils Absolute Auto 7.3 x10*3/uL (2.0-8.3); Neutrophils Percent Auto 67.8 % (45-73); Platelet Count 184 X10*3/uL (160-400); Red Cell Distribution Width 15.2 % (11.0-16.0); White Blood Count 10.7 X10*3/uL (4.8-10.8)
[2021-09-29 16:39] LABS: Alanine Aminotransferase 24 U/L (0-31); Albumin Level 4.4 g/dL (3.5-5.0); Alkaline Phosphatase 141 U/L (39-117); Anion Gap 11 (12-20); Aspartate Amino Transferase 19 U/L (5-31); Bilirubin Total 0.4 mg/dL (0.0-1.0); Blood Urea Nitrogen 11 mg/dL (9-16); Calcium 9.7 mg/dL (8.4-10.2); Carbon Dioxide 30 mmol/L (22-29); Chloride 103 mmol/L (96-108); Cholesterol 205 mg/dL; Estimated Glomerular Filt Rate > 60; Glucose Fasting 100 mg/dL (60-99); HDL Cholesterol 49 mg/dL; LDL Cholesterol Calculated 132 mg/dl; Sodium 140 mmol/L (135-145); Total Protein 7.5 g/dL (6.5-8.0); Triglycerides 123 mg/dL
[2021-09-29 16:53] LABS: Erythrocyte Sedimentation Rate 30 MM/HR (0-20)
[2021-09-29 17:02] LABS: Thyroid Stimulating Hormone 2.45 uIU/mL (0.32-4.0); Vitamin D 25-OH Total 28.2 ng/mL (>30)
[2021-10-02 19:07] LABS: IgA 191 mg/dL (47-310); IgG 1425 mg/dL (600-1640); IgM 39 mg/dL (50-300)
== END 2021-09-29 14:36 | disposition home or self-care (01) ==
LOC: HO.LAB 14:35
PROVIDERS: PCP Internal Medicine; Visit Provider Hospitalist
DX: E66.01 Morbid (severe) obesity due to excess calories (principal); E78.5 Hyperlipidemia, unspecified; E55.9 Vitamin D deficiency, unspecified; D64.9 Anemia, unspecified; J45.41 Moderate persistent asthma with (acute) exacerbation; M32.9 Systemic lupus erythematosus, unspecified; R05.3 Chronic cough; D72.19 Other eosinophilia
CPT/HCPCS: 36415; 80053; 80061; 82306; 82784; 82785; 84443; 85025; 85652; 86003; 99212

== ENCOUNTER 2021-10-01 13:50 | Outpatient (REF) | payer OTHER, SELFPAY ==
--- NOTE | ~2021-10-01 | XR_ITS ---
EXAMINATION: XR CHEST CLINICAL INFORMATION: Pleurodynia. Anterior chest pain with exertion. COMPARISON: 11/12/2020 TECHNIQUE: 2 views of the chest were obtained. FINDINGS: The lungs are well expanded. There is no focal consolidation, edema, or effusion. No pneumothorax. The cardiomediastinal silhouette is within normal limits. No acute osseous abnormality. XR/XR chest 2V IMPRESSION: Clear lungs.
== END 2021-10-01 13:51 | disposition home or self-care (01) ==
LOC: HO.XRAY 13:50
PROVIDERS: PCP Internal Medicine; Visit Provider Hospitalist
DX: R07.81 Pleurodynia (principal)
CPT/HCPCS: 71046

== ENCOUNTER 2021-11-24 08:47 | Outpatient (REF) | payer OTHER, SELFPAY ==
--- NOTE | ~2021-11-24 | MM_ITS ---
EXAMINATION: MM DIAGNOSTIC DIGITAL BREAST TOMOSYNTHESIS, BILATERAL CLINICAL INFORMATION: Due for yearly. Follow-up probable benign calcifications right breast (new calcification surveillance 11/18/2020). The lifetime risk of breast cancer based on the Tyrer-Cuzick Model is 8%. COMPARISON: Mammography: 05/22/2021, 11/18/2020 (new surveillance right calcifications), 11/13/2019, 05/04/2019, 09/14/2018, 09/05/2018 TECHNIQUE: Digital breast tomosynthesis is performed in both the craniocaudal and mediolateral oblique views along with computer-aided detection (CAD). Synthesized 2D images are generated from the tomosynthesis. Additional views are obtained: Magnification right CC, magnification right ML x2. FINDINGS: There are scattered areas of fibroglandular density (ACR BI-RADS breast composition Category b). Breast tissue composition borders on heterogeneously dense. There is no developing density or interval mass or architectural abnormality. There are scattered calcifications on left similar in number and distribution to prior studies. The bilateral axilla and skin contours are unremarkable. Right breast calcifications for follow-up are similar in number and distribution to recent diagnostic exams. There are stable loosely grouped calcifications anterior lateral breast on CC view which appear non grouped on ML view. No interval pleomorphic types or ductal distribution. Results are provided to the patient at time of visit by the technologist. MM/MM tomosynthesis diagnostic BI IMPRESSION: Right: -No significant change from prior diagnostic exam. Probable benign calcifications stable. Left: -No mammographic evidence of malignancy. ASSESSMENT: BI-RADS 3: Probably Benign RECOMMENDATION: Diagnostic right mammography in 6 months. This patient's information was entered into a reminder system with a target due date for their next mammogram.
== END 2021-11-24 08:48 | disposition home or self-care (01) ==
LOC: HO.MAMMO 08:47
PROVIDERS: PCP Internal Medicine; Visit Provider Internal Medicine
DX: R92.1 Mammographic calcification found on diagnostic imaging of breast (principal)
CPT/HCPCS: 77062; 77066

== ENCOUNTER 2021-12-08 08:34 | Outpatient (REF) | payer OTHER, SELFPAY ==
[2021-12-08 10:31] LABS: MANUAL DIFF FLAG NO
[2021-12-08 10:39] LABS: Basophils Absolute Auto 0.1 X10*3/uL (0.0-0.2); Basophils Percent Auto 1.1 % (0-2); Eosinophils Absolute Auto 0.3 X10*3/uL (0.0-0.4); Eosinophils Percent Auto 4.4 % (0-4); Hematocrit 40.3 % (37.0-47.0); Imm Gran Abs Auto 0.03 X10*3/uL (0.00-0.03); Imm Gran Pct Auto 0.4 % (0.0-0.4); Lymphocytes Absolute Auto 1.9 X10*3/uL (1.2-4.9); Lymphocytes Percent Auto 25.2 % (20-40); Mean Corpuscular HGB Conc 32.3 g/dl (31.0-35.0); Mean Corpuscular Hemoglobin 27.3 pg (27.0-33.0); Mean Corpuscular Volume 84.7 fL (80.0-98.0); Mean Platelet Volume 13.3 fL (9.4-12.3); Monocytes Absolute Auto 0.3 X10*3/uL (0.1-1.2); Monocytes Percent Auto 4.4 % (2-11); Neutrophils Absolute Auto 4.9 x10*3/uL (2.0-8.3); Neutrophils Percent Auto 64.5 % (45-73); Platelet Count 156 X10*3/uL (160-400); Red Blood Count 4.76 X10*6/uL (4.20-5.50); Red Cell Distribution Width 15.4 % (11.0-16.0); White Blood Count 7.6 X10*3/uL (4.8-10.8)
[2021-12-08 10:49] LABS: Alanine Aminotransferase 14 U/L (0-31); Alkaline Phosphatase 115 U/L (39-117); Anion Gap 13 (12-20); Aspartate Amino Transferase 12 U/L (5-31); Bilirubin Total 0.3 mg/dL (0.0-1.0); Blood Urea Nitrogen 9 mg/dL (9-16); C Reactive Protein 2.36 mg/dL (< or = 0.50); Calcium 9.1 mg/dL (8.4-10.2); Carbon Dioxide 26 mmol/L (22-29); Chloride 106 mmol/L (96-108); Estimated Glomerular Filt Rate > 60; Glucose Random 93 mg/dL (60-115); Potassium 4.1 mmol/L (3.3-5.1); Sodium 141 mmol/L (135-145); Total Protein 6.9 g/dL (6.5-8.0)
[2021-12-08 11:00] LABS: Creatinine Urine 116.22 mg/dL; Protein/Creatinine Ratio, Ur 0.09 (<0.2); Total Protein Urine Random 11 mg/dL (<12)
[2021-12-08 11:57] LABS: Erythrocyte Sedimentation Rate 29 MM/HR (0-20)
[2021-12-09 16:47] LABS: Complement C3 157 mg/dL (83-193)
[2021-12-10 14:27] LABS: Anti DNA DS Antibody 1 IU/mL
[2021-12-13 15:42] LABS: Anti Nuclear Antibody Screen NEGATIVE (NEGATIVE)
== END 2021-12-08 08:35 | disposition home or self-care (01) ==
LOC: HO.10HDL 08:34
PROVIDERS: Visit Provider Internal Medicine Rheumatology
DX: M25.50 Pain in unspecified joint (principal); M32.9 Systemic lupus erythematosus, unspecified; M25.562 Pain in left knee; R76.8 Other specified abnormal immunological findings in serum
CPT/HCPCS: 36415; 80053; 84156; 85025; 85652; 86038; 86039; 86140; 86160; 86225; 99212

== ENCOUNTER 2021-12-15 08:34 | Outpatient (REF) | payer OTHER, SELFPAY ==
--- NOTE | ~2021-12-15 | XR_ITS ---
EXAMINATION: XR KNEE, LEFT CLINICAL INFORMATION: Left knee pain and instability COMPARISON: 11/12/2020 TECHNIQUE: Four views of the left knee. This includes AP and lateral upright view. FINDINGS: No fracture or subluxation. Compartmental joint spaces are maintained. Small marginal osteophytes at the medial and patellofemoral compartments. No joint effusion. XR/XR knee LT 3V IMPRESSION: Mild degenerative changes at the medial and patellofemoral compartments.
== END 2021-12-15 08:35 | disposition home or self-care (01) ==
LOC: HO.XRAY 08:34
PROVIDERS: PCP Internal Medicine; Visit Provider Internal Medicine Rheumatology
DX: M25.50 Pain in unspecified joint (principal); M25.562 Pain in left knee
CPT/HCPCS: 73562

== ENCOUNTER → 2022-01-19 15:28 | Outpatient (BNVA) | payer OTHER, SELFPAY | PROVIDERS: PCP Internal Medicine; Visit Provider Hospitalist | DX: J45.40 Moderate persistent asthma, uncomplicated (principal); J40 Bronchitis, not specified as acute or chronic; R05.3 Chronic cough; D72.19 Other eosinophilia | CPT/HCPCS: 99212 ==

== ENCOUNTER 2022-01-20 16:25 | Outpatient (REF) | payer OTHER, SELFPAY ==
[2022-01-21 13:11] LABS: BV Int Neg Control Negative (Negative); BV Int Pos Control Positive (Positive)
[2022-01-26 10:52] LABS: HPV 16 RNA NOT DETECTED (NOT DETECTED); HPV mRNA E6/E7 rflx Detected (Not Detected)
== END 2022-01-20 16:26 | disposition home or self-care (01) ==
LOC: HO.LNP 16:25
PROVIDERS: Visit Provider Advanced Practice Midwife
DX: Z01.419 Encounter for gynecological examination (general) (routine) without abnormal findings (principal); N95.0 Postmenopausal bleeding; Z11.51 Encounter for screening for human papillomavirus (HPV)
CPT/HCPCS: 87480; 87510; 87624; 87625; 87660; 88142

== ENCOUNTER → 2022-02-11 09:31 | Outpatient (BNVA) | payer OTHER, SELFPAY | PROVIDERS: PCP Internal Medicine; Visit Provider Internal Medicine Rheumatology | DX: R21 Rash and other nonspecific skin eruption (principal); R76.8 Other specified abnormal immunological findings in serum; M17.12 Unilateral primary osteoarthritis, left knee | CPT/HCPCS: 99212 ==

== ENCOUNTER 2022-02-12 13:35 | Outpatient (REF) | payer OTHER, SELFPAY ==
--- NOTE | ~2022-02-12 | US_ITS ---
EXAMINATION: US PELVIS CLINICAL INFORMATION: Postmenopausal bleeding COMPARISON: Previous pelvic ultrasound September [address] of the abdomen and pelvis from 2020. TECHNIQUE: Ultrasound of the pelvis is performed using both transabdominal and transvaginal transducers along with Doppler. Transvaginal imaging is performed due to inadequate visualization transabdominally. FINDINGS: The uterus is anteverted and measures 11.5 x 5.6 x 7.6 cm in dimension. There is question of a focal 1.2 cm fibroid adjacent to the endometrium in the anterior uterine body. No other focal uterine lesion. The endometrium is thickened for a postmenopausal patient measuring 1.3 cm. There are multiple small cystic areas in the endometrium. There are small nabothian cysts in the cervix. The ovaries are normal. The right ovary measures 1.8 x 1.2 x 1 cm. The left ovary measures 1.7 x 1 1.7 cm. There is no fluid in the pelvis. US/US pelvic and transvaginal IMPRESSION: Thickened heterogeneous endometrium with small cystic areas. Question small posterior fibroid in the anterior uterine body measuring 1.2 cm.
== END 2022-02-12 13:36 | disposition home or self-care (01) ==
LOC: HO.US 13:35
PROVIDERS: Visit Provider Advanced Practice Midwife
DX: N95.0 Postmenopausal bleeding (principal)
CPT/HCPCS: 76830; 76856

== ENCOUNTER 2022-03-01 11:23 | Outpatient (REF) | payer OTHER, SELFPAY | END 2022-03-01 11:24 | disposition home or self-care (01) | LOC: HO.LNP 11:23 | PROVIDERS: PCP Internal Medicine; Visit Provider Advanced Practice Midwife | DX: N93.9 Abnormal uterine and vaginal bleeding, unspecified (principal) | CPT/HCPCS: 58100; 88305 ==

== ENCOUNTER → 2022-03-04 11:04 | Outpatient (BNVA) | payer OTHER, SELFPAY | PROVIDERS: PCP Internal Medicine; Visit Provider Advanced Practice Midwife | DX: Z71.2 Person consulting for explanation of examination or test findings (principal); N95.0 Postmenopausal bleeding | CPT/HCPCS: 99212 ==

== ENCOUNTER 2022-03-07 10:24 | Emergency (ER) | payer OTHER, SELFPAY ==
[2022-03-07 10:26] VITALS: BP 142/68; PULSE 76; RESP 16; TEMP 35.9; O2SAT 96; BMI 30.4
--- NOTE | 2022-03-07 12:00 | ED_ITS ---
HPI - Skin/Abscess/Foreign Bdy General Chief complaint: Skin/Abscess/Foreign Body Stated complaint: bee sting, allergic reaction? Time Seen by Provider: 03/07/22 11:30 Source: patient Mode of arrival: ambulatory Limitations: no limitations History of Present Illness HPI narrative: 52 year old female presents to the ED c/o of lelf upper arm erythema, swelling & pruritus s/p bee sting yesterday. reports symptoms worsened overnight with increasing swelling and warmth. denies fever, chills, throat closing sensation, cough, SOB, ZAVALETA, nausea or vomiting. MD complaint: rash and insect bite/sting Onset (ago): day(s) (1) Location: LUE Quality: pruritic Related Data Previous Rx's Medication Instructions Recorded cetirizine 10 mg tablet 10 mg PO DAILY #30 tabs 10/30/20 montelukast 10 mg tablet 10 mg PO BEDTIME 90 days #90 tabs 04/02/21 (Singulair) albuterol sulfate 2.5 mg/3 mL 2.5 mg (3 mL) inhalation Q6H PRN 05/07/21 (0.083 %) solution for nebulization shortness of breath or wheezing 30 days #180 mL albuterol sulfate 90 mcg/actuation 2 inh inhalation Q6H PRN shortness 05/07/21 aerosol inhaler of breath or wheezing 30 days #18 grams tiotropium bromide 2.5 2 puff inhalation DAILY 30 days #1 09/29/21 mcg/actuation mist for inhalation ea (Spiriva Respimat) lactulose 10 gram/15 mL oral 10 g (15 mL) PO BEDTIME PRN 10/06/21 solution constipation 30 days #237 mL ibuprofen 400 mg tablet 400 - 800 mg PO BID #120 tabs 01/17/22 budesonide-formoterol HFA 160 2 puff inhalation BID 30 days 01/19/22 mcg-4.5 mcg/actuation aerosol #10.2 grams inhaler (Symbicort) cholecalciferol (vitamin D3) 25 25 mcg PO DAILY 90 days #90 caps 01/21/22 mcg (1,000 unit) capsule furosemide 20 mg tablet 20 mg PO DAILY PRN edema 7 days #7 01/21/22 tabs lorazepam 0.5 mg tablet 0.5 mg PO DAILY PRN anxiety 30 01/21/22 days #30 tabs sertraline 25 mg tablet 25 mg PO DAILY 90 days #90 tabs 01/21/22 metronidazole 500 mg tablet 500 mg PO BID 7 days #14 tabs 01/22/22 cephalexin 500 mg capsule 500 mg PO QID 7 days #28 caps 03/07/22 cetirizine 10 mg tablet (Zyrtec) 10 mg PO DAILY PRN allergy 03/07/22 symptoms #14 tabs diphenhydramine HCl 25 mg tablet 25 mg PO TID PRN allergic reaction 03/07/22 (Benadryl Allergy) #14 tabs hydrocortisone 1 % topical cream 1 appl topical BID PRN allergic 03/07/22 (Anti-Itch (hydrocortisone)) reaction #28.4 grams Allergies Allergy/AdvReac Type Severity Reaction Status Date / Time Seasonal Allergies Allergy Severe Difficulty Verified 03/04/22 11:12 Breathing Review of Systems Review of Systems: Constitutional: No Fever, No Chills ENT/Mouth: No Ear Pain, No Nasal Congestion, No sore throat, No Rhinorrhea, No Swallowing Difficulty Cardiovascular: No Chest Pain, No SOB Respiratory: No Cough, No Sputum, No Wheezing Gastrointestinal: No Nausea, No Vomiting, No Diarrhea, No Constipation, No Abdominal pain Genitourinary: No Dysuria, No Urinary Frequency, No Urgency, No Flank Pain Musculoskeletal: No joint pain, + Swelling Skin: No Skin Lesions, +rash ,+ itchiness Neuro: No Weakness, No Numbness, No Paresthesias Yes all other systems are reviewed and are negative PMFSH Past Medical History Attestation statement: The following information was validated with the patient. Medical History Abdominal bloating Abnormal Pap smear of cervix Asthma BMI 40.0-44.9, adult Bronchitis Cholelithiasis Chronic cough Eosinophilia History of asthma History of diastolic dysfunction History of vitamin D deficiency Hx of coronary artery disease Hx of hyperlipidemia Hx of systemic lupus erythematosus (SLE) Hx of varicose veins Lupus Lymphedema Morbid obesity Osteopenia (~2019) Physical exam Pleuritic chest pain Right hip pain Tubular adenoma of colon (~2016) Venous insufficiency Vitamin B1 deficiency Vitamin D deficiency Surgical History History of cardiac cath History of colonoscopy History of ear surgery History of foot surgery History of hysteroscopy History of loop electrical excision procedure (LEEP) History of tubal ligation (~1992) Family History Family History Father Diabetes Cancer Colon cancer Paternal Grandfather Diabetes Maternal Aunt Cancer History of breast cancer Mother Sudden Sister Arthritis Rheumatoid arthritis Hypothyroidism Sister No problems noted. Sister No problems noted. Brother Diabetes Brother No problems noted. Son No problems noted. Daughter No problems noted. Daughter No problems noted. Daughter Lupus Social History Social History Housing: House Alcohol intake: never Patient Tobacco Use Status: Never used Tobacco e-Cigarette/Vaping Use: Never Used Second Hand Smoke Exposure: No Advance Directives: No Advance Directives Information Provided: No service: No Current occupational status: employed Current occupational exposures/hazards: No Sexual orientation: Straight/Heterosexual Gender identity: Female Cognitive needs: No Hearing needs: No Vision needs: Yes Physical Exam Vital Signs: Vital Signs: Last Vital Signs Temp 96.6 F L 03/07/22 10:26 Pulse 76 03/07/22 10:26 Resp 16 03/07/22 10:26 BP 142/68 H 03/07/22 10:26 Pulse Ox 96 03/07/22 10:26 O2 Del Method 03/07/22 10:26 BMI result Body Mass Index 30.4 Const: General: cooperative, comfortable, alert, awake and Physically active Orientation/consciousness: patient oriented x3 Limitations: no limitations HEENT: Head: Yes normal to inspection, Yes normocephalic and Yes atraumatic Ears: hearing grossly normal bilaterally General nose exam: Normal external nose present Face and sinus: Yes normal facial exam Mouth: Normal oral and palatal mucosa present, tongue normal and moist mucous membranes Eyes: General: appearance normal, both eyes and all related structures EOM: EOMs intact bilaterally Neck: Neck: Yes normal visual inspection, Yes full ROM and Yes no lymphadenopathy Resp: Effort & Inspection: normal respiratory effort, able to speak in complete sentences, no cough and no respiratory distress Auscultation: clear to auscultation bilaterally, no crackles, no rales, no rhonchi and no wheezes Cardio: Rate: regular rate Rhythm: regular rhythm Heart sounds: S1 nor mal heart sound present and S2 normal heart sound present Peripheral pulses: radial pulses present and ulnar radial pulses present GI: Inspection: Yes normal to inspection Skin: Other: +erythema and swelling noted to E medal humerus with warmth. small bite area noted. No fluctuance/induration. Not circumferential. No streaking General skin exam: erythema and no fluctuance Rashes: no rashes Wounds: no wounds Neuro: General: patient oriented x3 Extrem: General: Yes normal to inspection and Yes full ROM Right upper extremity: normal to inspection, full ROM, normal capillary refill and cyanosis Left upper extremity: normal to inspection, full ROM, cyanosis and edema Medications Administered Discontinued Medications Generic Name Dose Route Start Last Admin Trade Name Freq PRN Reason Stop Dose Admin Loratadine 10 mg 03/07/22 12:03 03/07/22 12:10 Loratadine 10 Mg Tablet PO 03/07/22 12:04 10 mg ONCE ONE Administration MDM - Skin/Abscess/Foreign Bdy MDM Narrative Medical decision making narrative: 52 year old female presents to the ED c/o of lelf upper arm erythema, swelling & pruritus s/p bee sting yesterday. reports symptoms worsened overnight with increasing swelling and warmth. On exam, VSS, lung CTA, no respiratory distress or anaphylactic symptoms. Concern for localized allergic reaction vs cellulitis. Lower suspicion FB, abscess, or compartment syndrome Plan: Topical hydrocortisone, p.o. Benadryl, p.o. Keflex Differential Diagnosis Differential diagnosis: Likely cellulitis and insect bites Medical Records Attestation: I reviewed the patient's medical records. Lab Data Attestation: I reviewed the patient's lab results. Discharge Plan Discharge Clinical Impression: Allergic reaction to bee sting Patient Disposition: Home, Self-Care Instructions: Allergies (ED) Additional Instructions: You are discharged with Cephalexin, it is an antibiotic, please take it as prescribed. Cetirizine and Benadryl are for your allergic symptoms and the itchiness, Benadryl will make you feel drowsy, please don't drive/drink or operate anything after taking the medication. Hydrocortisone is a topical steroid which will help with the inflammation and itchiness Please come back to the ED if your symptoms worsen, spread past line we created or you have cough, throat swelling, difficulty breathing, shortness of breath Follow up with your PCP Prescriptions: New diphenhydramine HCl [Benadryl Allergy] 25 mg tablet 25 mg PO TID PRN (Reason: allergic reaction) Qty: 14 0RF cetirizine [Zyrtec] 10 mg tablet 10 mg PO DAILY PRN (Reason: allergy symptoms) Qty: 14 0RF hydrocortisone [Anti-Itch (HC)] 1 % cream 1 appl topical BID PRN (Reason: allergic reaction) Qty: 28.4 0RF cephalexin 500 mg capsule 500 mg PO QID 7 Days Qty: 28 0RF No Action cetirizine 10 mg tablet 10 mg PO DAILY Qty: 30 11RF montelukast [Singulair] 10 mg tablet 10 mg PO BEDTIME 90 Days Qty: 90 3RF lactulose 10 gram/15 mL solution 10 g PO BEDTIME PRN (Reason: constipation) 30 Days Qty: 237 0RF ibuprofen 400 mg tablet 400 - 800 mg PO BID Qty: 120 1RF metronidazole 500 mg tablet 500 mg PO BID 7 Days Qty: 14 0RF lorazepam 0.5 mg tablet 0.5 mg PO DAILY PRN (Reason: anxiety) 30 Days Qty: 30 0RF cholecalciferol (vitamin D3) 25 mcg (1,000 unit) capsule 25 mcg PO DAILY 90 Days Qty: 90 1RF sertraline 25 mg tablet 25 mg PO DAILY 90 Days Qty: 90 0RF furosemide 20 mg tablet 20 mg PO DAILY PRN (Reason: edema) 7 Days Qty: 7 0RF albuterol sulfate 2.5 mg /3 mL (0.083 %) solution for nebulization 2.5 mg inhalation Q6H PRN (Reason: shortness of breath or wheezing) 30 Days Qty: 180 11RF albuterol sulfate 90 mcg/actuation HFA aerosol inhaler 2 inh inhalation Q6H PRN (Reason: shortness of breath or wheezing) 30 Days Qty: 18 12RF Spiriva Respimat 2.5 mcg/actuation mist 2 puff inhalation DAILY 30 Days Qty: 1 11RF budesonide-formoterol [Symbicort] 160-4.5 mcg/actuation HFA aerosol inhaler 2 puff inhalation BID 30 Days Qty: 10.2 11RF Referrals: Karrie Reinoso MD [Primary Care Provider] - Interventions: ED Discharge Assessment Last Done: 03/07/22 12:22 Discharge Date/Time: 03/07/22 12:23
[2022-03-07] MEDS: Loratadine 10 MG TABLET PO (12:10)
== END 2022-03-07 12:23 | disposition home or self-care (01) ==
PROVIDERS: Emergency Provider Emergency Medicine; PCP Internal Medicine
DX: Z91.030 Bee allergy status (principal)
CPT/HCPCS: 99282

== ENCOUNTER 2022-03-08 05:47 | Emergency (ER) | payer OTHER, SELFPAY ==
[2022-03-08 05:58] VITALS: BP 137/83; PULSE 76; RESP 16; TEMP 36.8; O2SAT 95; BMI 43.0
[2022-03-08 06:33] VITALS: BP 132/84; PULSE 80; RESP 16; TEMP 36.4; O2SAT 97
--- NOTE | 2022-03-08 07:29 | ED.GENADULT ---
HPI - General Adult General Chief complaint: General Medical Stated complaint: PT follow up from previous visit, bug bite Time Seen by Provider: 03/08/22 06:43 History of Present Illness HPI narrative: Patient is a 52-year-old female presents today with having an insect bite to her left arm on Tuesday. Patient noticed increasing redness swelling to the area came to the emergency department yesterday. Was started on Keflex yesterday. Complaining today that the swelling area has gotten bigger. No fever no chills. No systemic complaints. Related Data Previous Rx's Medication Instructions Recorded cetirizine 10 mg tablet 10 mg PO DAILY #30 tabs 10/30/20 montelukast 10 mg tablet 10 mg PO BEDTIME 90 days #90 tabs 04/02/21 (Singulair) albuterol sulfate 2.5 mg/3 mL 2.5 mg (3 mL) inhalation Q6H PRN 05/07/21 (0.083 %) solution for nebulization shortness of breath or wheezing 30 days #180 mL albuterol sulfate 90 mcg/actuation 2 inh inhalation Q6H PRN shortness 05/07/21 aerosol inhaler of breath or wheezing 30 days #18 grams tiotropium bromide 2.5 2 puff inhalation DAILY 30 days #1 09/29/21 mcg/actuation mist for inhalation ea (Spiriva Respimat) lactulose 10 gram/15 mL oral 10 g (15 mL) PO BEDTIME PRN 10/06/21 solution constipation 30 days #237 mL ibuprofen 400 mg tablet 400 - 800 mg PO BID #120 tabs 01/17/22 budesonide-formoterol HFA 160 2 puff inhalation BID 30 days 01/19/22 mcg-4.5 mcg/actuation aerosol #10.2 grams inhaler (Symbicort) cholecalciferol (vitamin D3) 25 25 mcg PO DAILY 90 days #90 caps 01/21/22 mcg (1,000 unit) capsule furosemide 20 mg tablet 20 mg PO DAILY PRN edema 7 days #7 01/21/22 tabs lorazepam 0.5 mg tablet 0.5 mg PO DAILY PRN anxiety 30 01/21/22 days #30 tabs sertraline 25 mg tablet 25 mg PO DAILY 90 days #90 tabs 01/21/22 metronidazole 500 mg tablet 500 mg PO BID 7 days #14 tabs 01/22/22 cephalexin 500 mg capsule 500 mg PO QID 7 days #28 caps 03/07/22 cetirizine 10 mg tablet (Zyrtec) 10 mg PO DAILY PRN allergy 03/07/22 symptoms #14 tabs diphenhydramine HCl 25 mg tablet 25 mg PO TID PRN allergic reaction 03/07/22 (Benadryl Allergy) #14 tabs hydrocortisone 1 % topical cream 1 appl topical BID PRN allergic 03/07/22 (Anti-Itch (hydrocortisone)) reaction #28.4 grams Allergies Allergy/AdvReac Type Severity Reaction Status Date / Time Seasonal Allergies Allergy Severe Difficulty Verified 03/08/22 05:58 Breathing Review of Systems Review of Systems: No chest pain or shortness of breath no diaphoresis Yes all other systems are reviewed and are negative [facility] Past Medical History Attestation statement: The following information was validated with the patient. Medical History Abdominal bloating Abnormal Pap smear of cervix Asthma BMI 40.0-44.9, adult Bronchitis Cholelithiasis Chronic cough Eosinophilia History of asthma History of diastolic dysfunction History of vitamin D deficiency Hx of coronary artery disease Hx of hyperlipidemia Hx of systemic lupus erythematosus (SLE) Hx of varicose veins Lupus Lymphedema Morbid obesity Osteopenia (~2019) Physical exam Pleuritic chest pain Right hip pain Tubular adenoma of colon (~2016) Venous insufficiency Vitamin B1 deficiency Vitamin D deficiency Surgical History History of cardiac cath History of colonoscopy History of ear surgery History of foot surgery History of hysteroscopy History of loop electrical excision procedure (LEEP) History of tubal ligation (~1992) Family History Family History Father Diabetes Cancer Colon cancer Paternal Grandfather Diabetes Maternal Aunt Cancer History of breast cancer Mother Sudden Sister Arthritis Rheumatoid arthritis Hypothyroidism Sister No problems noted. Sister No problems noted. Brother Diabetes Brother No problems noted. Son No problems noted. Daughter No problems noted. Daughter No problems noted. Daughter Lupus Social History Social History Housing: House Alcohol intake: never Patient Tobacco Use Status: Never used Tobacco Smoked in Last 30 Days: No e-Cigarette/Vaping Use: Never Used Second Hand Smoke Exposure: No Use of substances other than those prescribed or required for medical reasons: No Advance Directives: No service: No Current occupational status: employed Current occupational exposures/hazards: No Sexual orientation: Straight/Heterosexual Gender identity: Female Cognitive needs: No Hearing needs: No Vision needs: Yes Physical Exam ED Vital Signs: Vital Signs - 24 hr 03/08/22 05:58 03/08/22 06:33 Temperature 98.2 F 97.5 F Pulse Rate 76 80 Respiratory Rate 16 16 Blood Pressure 137/83 132/84 Pulse Oximetry 95 97 Oxygen Delivery Method Room Air BMI result Body Mass Index 43.0 Appearance: Alert. Oriented X3. No acute distress. Eyes: Pupils equal, round and reactive to light. ENT: Pharynx normal. Neck: Normal inspection. Neck supple. No lymph nodes noted. No crepitus CVS: Normal heart rate and rhythm. Pulses normal. Normal S1 and S2 Respiratory: No respiratory distress. Breath sounds normal. No Wheezing. No rales Abdomen: Soft and nontender. No rigidity. No distention. good BS x4 Skin: Positive area of redness to the left lower arm. Approximately 8 cm x 6 cm in size. Red raise. Approximately 1-2 inch beyond the original margin. Extremities: No lower extremity edema. Neurovascular intact to all extremities. No Lacerations. No Rash. Neuro: Oriented X 3. No motor deficit. No sensory deficit. Moving all extermities. No slurred speech Medical Decision Making MDM Narrative Medical decision making narrative: Explained to patient the redness could be secondary to an inflammatory response/ infection. Patient already on antibiotics. It has only been approximately 24 hours. Would like to watch the patient very carefully. Have patient continue the antibiotics. Close follow-up advised. A new margin was redrawn. Patient to follow-up on an outpatient basis. Discharge Plan Discharge Clinical Impression: Insect bite, Cellulitis Patient Disposition: Home, Self-Care Instructions: Cellulitis (ED), Warm Compress or Soak (ED) Prescriptions: No Action cetirizine 10 mg tablet 10 mg PO DAILY Qty: 30 11RF montelukast [Singulair] 10 mg tablet 10 mg PO BEDTIME 90 Days Qty: 90 3RF lactulose 10 gram/15 mL solution 10 g PO BEDTIME PRN (Reason: constipation) 30 Days Qty: 237 0RF ibuprofen 400 mg tablet 400 - 800 mg PO BID Qty: 120 1RF metronidazole 500 mg tablet 500 mg PO BID 7 Days Qty: 14 0RF diphenhydramine HCl [Benadryl Allergy] 25 mg tablet 25 mg PO TID PRN (Reason: allergic reaction) Qty: 14 0RF cetirizine [Zyrtec] 10 mg tablet 10 mg PO DAILY PRN (Reason: allergy symptoms) Qty: 14 0RF hydrocortisone [Anti-Itch (HC)] 1 % cream 1 appl topical BID PRN (Reason: allergic reaction) Qty: 28.4 0RF cephalexin 500 mg capsule 500 mg PO QID 7 Days Qty: 28 0RF lorazepam 0.5 mg tablet 0.5 mg PO DAILY PRN (Reason: anxiety) 30 Days Qty: 30 0RF cholecalciferol (vitamin D3) 25 mcg (1,000 unit) capsule 25 mcg PO DAILY 90 Days Qty: 90 1RF sertraline 25 mg tablet 25 mg PO DAILY 90 Days Qty: 90 0RF furosemide 20 mg tablet 20 mg PO DAILY PRN (Reason: edema) 7 Days Qty: 7 0RF albuterol sulfate 2.5 mg /3 mL (0.083 %) solution for nebulization 2.5 mg inhalation Q6H PRN (Reason: shortness of breath or wheezing) 30 Days Qty: 180 11RF albuterol sulfate 90 mcg/actuation HFA aerosol inhaler 2 inh inhalation Q6H PRN (Reason: shortness of breath or wheezing) 30 Days Qty: 18 12RF Spiriva Respimat 2.5 mcg/actuation mist 2 puff inhalation DAILY 30 Days Qty: 1 11RF budesonide-formoterol [Symbicort] 160-4.5 mcg/actuation HFA aerosol inhaler 2 puff inhalation BID 30 Days Qty: 10.2 11RF Referrals: Rose Solomon MD [Emergency Provider] - (Please follow-up with your primary doctor. If condition worsen please come back to the emergency department immediately.) Karrie Reinoso MD [Primary Care Provider] -
== END 2022-03-08 07:59 | disposition home or self-care (01) ==
PROVIDERS: Emergency Provider Emergency Medicine Emergency Medical Services; PCP Internal Medicine
DX: Z04.2 Encounter for examination and observation following work accident (principal); S40.862D Insect bite (nonvenomous) of left upper arm, subsequent encounter; L03.114 Cellulitis of left upper limb; W57.XXXD Bitten or stung by nonvenomous insect and other nonvenomous arthropods, subsequent encounter
CPT/HCPCS: 99282; 99284

== ENCOUNTER 2022-03-16 14:01 | Outpatient (REF) | payer OTHER, SELFPAY | END 2022-03-16 14:02 | disposition home or self-care (01) | LOC: HO.LNP 14:01 | PROVIDERS: Visit Provider Obstetrics & Gynecology | DX: Z32.02 Encounter for pregnancy test, result negative (principal); A63.0 Anogenital (venereal) warts; B97.7 Papillomavirus as the cause of diseases classified elsewhere | CPT/HCPCS: 57454; 81025; 88305 ==

== ENCOUNTER → 2022-04-12 14:36 | Outpatient (BNVA) | payer OTHER, SELFPAY | PROVIDERS: Visit Provider Obstetrics & Gynecology | DX: N87.0 Mild cervical dysplasia (principal) | CPT/HCPCS: 99212 ==

== ENCOUNTER 2022-06-01 14:06 | Outpatient (REF) | payer OTHER, SELFPAY ==
--- NOTE | ~2022-06-01 | MM_ITS ---
EXAMINATION: MM DIAGNOSTIC DIGITAL BREAST TOMOSYNTHESIS, RIGHT CLINICAL INFORMATION: Right breast calcifications. The lifetime risk of breast cancer based on the Tyrer-Cuzick Model is 8%. COMPARISON: Mammography: 11/24/2021 and study dating back to 12/11/2014. TECHNIQUE: Digital breast tomosynthesis is performed in both the craniocaudal and mediolateral oblique views along with computer-aided detection (CAD). Synthesized 2D images are generated from the tomosynthesis. Spot magnification views in craniocaudal and 90 degree mediolateral views performed. FINDINGS: The breasts are heterogeneously dense, which may obscure small masses (ACR BI-RADS breast composition Category c). There is a stable parenchymal pattern within the right breast with no new abnormal dominant mass or more suspicious grouping of microcalcifications identified. There is stability of calcifications some of which change configuration representing milk of calcium within microcysts. Recommend bilateral screening mammography in 6 months. Results are provided to the patient at time of visit by the technologist. MM/MM tomosynthesis diagnostic RT IMPRESSION: There are no significant changes from prior study. ASSESSMENT: BI-RADS 2: Benign RECOMMENDATION: Routine annual mammography screening, due in 6 months. This patient's information was entered into a reminder system with a target due date for their next mammogram.
== END 2022-06-01 14:07 | disposition home or self-care (01) ==
LOC: HO.MAMMO 14:06
PROVIDERS: PCP Internal Medicine; Visit Provider Internal Medicine
DX: R92.1 Mammographic calcification found on diagnostic imaging of breast (principal)
CPT/HCPCS: 77061; 77065

== ENCOUNTER 2022-07-08 08:13 | Emergency (ER) | payer OTHER, SELFPAY ==
[2022-07-08 08:14] VITALS: BP 151/80; PULSE 73; RESP 19; TEMP 36.1; O2SAT 98; BMI 43.9
--- NOTE | 2022-07-08 08:31 | ED.GENADULT ---
HPI - General Adult General Chief complaint: Back Pain/Injury Stated complaint: Lower back pain/ L leg pain Time Seen by Provider: 07/08/22 08:30 Source: patient Mode of arrival: ambulatory Limitations: no limitations History of Present Illness HPI narrative: Patient is a 52 year old assigned female at with a history of asthma and lupus presenting to the emergency department today with left sided low back pain and neck pain. Patient states that she is having left sided low back pain that radiates down her left leg and some intermittent neck pain. Patient denies any dizziness, lightheadedness, abdominal pain, nausea, vomiting, fever, chills, blurry vision, double vision, loss of vision, chest pain, difficulty breathing, shortness of breath, night sweats, pain with urination, increased urinary frequency, increased urinary urgency, blood in her urine or stool, syncope or a near syncopal episode, recent trauma or falls, bowel incontinence, bladder incontinence, bowel retention, bladder retention, or any other complaints at this time. Onset (ago): day(s) Location: neck and back Severity: mild Severity scale (1-10): 3 Relieving factors: none Exacerbating factors: none Associated symptoms: denies other symptoms Treatments prior to arrival: none Related Data Previous Rx's Medication Instructions Recorded cetirizine 10 mg tablet 10 mg PO DAILY #30 tabs 10/30/20 albuterol sulfate 2.5 mg/3 mL 2.5 mg (3 mL) inhalation Q6H PRN 05/07/21 (0.083 %) solution for nebulization shortness of breath or wheezing 30 days #180 mL albuterol sulfate 90 mcg/actuation 2 inh inhalation Q6H PRN shortness 05/07/21 aerosol inhaler of breath or wheezing 30 days #18 grams tiotropium bromide 2.5 2 puff inhalation DAILY 30 days #1 09/29/21 mcg/actuation mist for inhalation ea (Spiriva Respimat) lactulose 10 gram/15 mL oral 10 g (15 mL) PO BEDTIME PRN 10/06/21 solution constipation 30 days #237 mL budesonide-formoterol HFA 160 2 puff inhalation BID 30 days 01/19/22 mcg-4.5 mcg/actuation aerosol #10.2 grams inhaler (Symbicort) cholecalciferol (vitamin D3) 25 25 mcg PO DAILY 90 days #90 caps 01/21/22 mcg (1,000 unit) capsule furosemide 20 mg tablet 20 mg PO DAILY PRN edema 7 days #7 01/21/22 tabs lorazepam 0.5 mg tablet 0.5 mg PO DAILY PRN anxiety 30 01/21/22 days #30 tabs metronidazole 500 mg tablet 500 mg PO BID 7 days #14 tabs 01/22/22 cephalexin 500 mg capsule 500 mg PO QID 7 days #28 caps 03/07/22 cetirizine 10 mg tablet (Zyrtec) 10 mg PO DAILY PRN allergy 03/07/22 symptoms #14 tabs diphenhydramine HCl 25 mg tablet 25 mg PO TID PRN allergic reaction 03/07/22 (Benadryl Allergy) #14 tabs hydrocortisone 1 % topical cream 1 appl topical BID PRN allergic 03/07/22 (Anti-Itch (hydrocortisone)) reaction #28.4 grams ibuprofen 400 mg tablet 400 - 800 mg PO BID #120 tabs 03/08/22 sertraline 25 mg tablet 25 mg PO DAILY 90 days #90 tabs 03/08/22 montelukast 10 mg tablet 10 mg PO BEDTIME 90 days #90 tabs 06/02/22 (Singulair) cyclobenzaprine 5 mg tablet 5 mg PO TID PRN muscle spasm 7 07/08/22 days #21 tabs Allergies Allergy/AdvReac Type Severity Reaction Status Date / Time Seasonal Allergies Allergy Severe Difficulty Verified 03/16/22 14:13 Breathing Review of Systems Constitutional: Constitutional: Reports no additional constitutional complaints, Denies chills, Denies fever(s) and Denies night sweats Eyes: Eyes: Reports no additional eye complaints, Denies blurry vision, Denies change in vision, Denies diplopia, Denies eye discharge, Denies loss of vision and Denies eye pain ENT: Denies dizziness and Reports neck pain Cardiovascular: Cardiovascular: Reports no additional cardiovascular complaints, Denies chest pain, Denies lightheadedness, Denies Loss of Consciousness and Denies dyspnea Respiratory: Respiratory: Reports no additional respiratory complaints and Denies dyspnea Gastrointestinal: Gastrointestinal: Reports no additional gastrointestinal complaints, Denies abdominal pain, Denies melena, Denies hematochezia, Denies change in bowel habits and Denies change in stool character Genitourinary: Genitourinary: Denies hematuria, Denies urinary frequency, Denies dysuria, Denies urinary incontinence, Denies urinary hesitancy and Denies urinary urgency Musculoskeletal: Musculoskeletal: Reports no additional musculoskeletal complaints, Reports back pain, Reports neck pain, Denies numbness and Denies tingling Neurologic: Denies dizziness, Denies loss of vision, Denies numbness and Denies tingling Psychiatric: Psychiatric: Reports no additional psychiatric complaints Endocrine: Endocrine: Reports no additional endocrine complaints Hematologic/Lymphatic: Hematologic/Lymphatic: Reports no additional hematologic/lymphatic complaints Allergic/Immunologic: Allergic/Immunologic: Reports no additional allergic/immunologic complaints [facility] Past Medical History Attestation statement: The following information was validated with the patient. Source: old records reviewed and nursing notes reviewed Medical History Abdominal bloating Abnormal Pap smear of cervix Asthma BMI 40.0-44.9, adult Bronchitis Cholelithiasis Chronic cough Eosinophilia History of asthma History of diastolic dysfunction History of vitamin D deficiency Hx of coronary artery disease Hx of hyperlipidemia Hx of systemic lupus erythematosus (SLE) Hx of varicose veins Lupus Lymphedema Morbid obesity Osteopenia (~2019) Physical exam Pleuritic chest pain Right hip pain Tubular adenoma of colon (~2016) Venous insufficiency Vitamin B1 deficiency Vitamin D deficiency Surgical History History of cardiac cath History of colonoscopy History of ear surgery History of foot surgery History of hysteroscopy History of loop electrical excision procedure (LEEP) History of tubal ligation (~1992) Family History Family History Father Diabetes Cancer Colon cancer Paternal Grandfather Diabetes Maternal Aunt Cancer History of breast cancer Mother Sudden Sister Arthritis Rheumatoid arthritis Hypothyroidism Sister No problems noted. Sister No problems noted. Brother Diabetes Brother No problems noted. Son No problems noted. Daughter No problems noted. Daughter No problems noted. Daughter Lupus Social History Social History Housing: House Alcohol intake: never Patient Tobacco Use Status: Never used Tobacco e-Cigarette/Vaping Use: Never Used Second Hand Smoke Exposure: No Advance Directives: No Advance Directives Information Provided: No service: No Current occupational status: employed Current occupational exposures/hazards: No Sexual orientation: Straight/Heterosexual Gender identity: Female Cognitive needs: No Hearing needs: No Vision needs: Yes Physical Exam ED Vital Signs: Vital Signs - 24 hr 07/08/22 08:14 Temperature 97 F Pulse Rate 73 Respiratory Rate 19 Blood Pressure 151/80 H Pulse Oximetry 98 Oxygen Delivery Method Room Air BMI result Body Mass Index 43.9 Const General: cooperative, no acute distress, alert and awake Nutritional Appearance: well nourished Orientation/consciousness: patient oriented x3 Limitations: no limitations HENMT Head: Yes normal to inspection and Yes atraumatic Ears: hearing grossly normal bilaterally and external ears normal General nose exam: Normal external nose present, no nasal discharge noted and no epistaxis Face and sinus: Yes normal facial exam, No abrasion and No laceration Mouth: Normal oral and palatal mucosa present, no drooling and no muffled voice Eyes General: appearance normal, both eyes and all related structures Periorbital: periorbital findings normal Eyelids: Yes eyelids normal Conjunctivae: conjunctivae normal Pupils: Equal, round and reactive pupils present EOM: EOMs intact bilaterally Neck Neck: Yes normal visual inspection, Yes full ROM and Yes no lymphadenopathy Chest Chest palpation & inspection: normal inspection of the chest Resp Effort & Inspection: normal respiratory effort and able to speak in complete sentences Auscultation: clear to auscultation bilaterally Cardio Rate: regular rate Rhythm: regular rhythm GI Inspection: Yes normal to inspection Palpation (GI): Soft to palpation, not firm, nontender and no guarding General: Yes no CVA tenderness Back/Spine/Pelvis Back: no CVA tenderness Cervical Spine: normal cervical lordosis and cervical ROM normal Thoracic/Lumbar Spine: thoracic and lumbar spine normal to inspection and thoraco-lumbar ROM normal Pelvis: no pain with anterior-posterior compression Neuro General: patient oriented x3 and moves all extremities Cranial nerves: Yes Equal, round and reactive pupils present Cognition (Neuro): normal cognition Motor exam (neuro): 5/5 motor strength present throughout Sensory Exam: Normal double simultaneous stimulation for sensation Coordination: [id number] test normal Extrem General: Yes normal to inspection, Yes full ROM and Yes capillary refill normal Psych Appearance: grossly normal Mental Status: mental status grossly normal Affect: normal affect Attitude: cooperative Thought process: Normal thought process present Thought content: Normal thought content present Insight: Good insight present (Psych) Medications Administered Discontinued Medications Generic Name Dose Route Start Last Admin Trade Name Freq PRN Reason Stop Dose Admin Cyclobenzaprine HCl 5 mg 07/08/22 08:35 07/08/22 08:46 Cyclobenzaprine Hcl 5 Mg Tablet PO 07/08/22 08:36 5 mg ONCE ONE Administration Ketorolac Tromethamine 15 mg 07/08/22 08:35 07/08/22 08:46 Ketorolac Tromethamine 15 Mg/Ml Vial IM 07/08/22 08:36 15 mg ONCE ONE Administration Medical Decision Making Medical Decision Making [facility] [place] Narrative: Patient is a 52 year old assigned female at with a history of asthma and lupus presenting to the emergency department today with low back pain and neck pain. Patient's physical exam was unremarkable. Patient's clinical presentation is most consistent with sciatica and musculoskeletal neck pain. I explained my physical exam findings to the patient. I answered all questions asked by the patient. Patient received IM Toradol and PO Flexeirl which she stated helped her symptoms significantly. I stressed the importance of the patient taking her medication as prescribed. I stressed the importance of the patient following up with her primary care provider. I stressed the importance of the patient returning to the emergency department immediately if her symptoms were to worsen or if she were to develop any dizziness, shortness of breath, difficulty breathing, chest pain, blurry vision, loss of vision, nausea, vomiting, abdominal pain, fever, chills, back pain, or any other complaints. Patient verbalized agreement and understanding with this treatment plan and discharge. Differential Diagnosis Differential Diagnoses: The differential diagnosis associated with the presentation includes low back pain, neck pain Discharge Plan Discharge Clinical Impression: Sciatica Patient Disposition: Home, Self-Care Instructions: Sciatica (ED) Additional Instructions: Follow up with your primary care provider. Return to the emergency department immediately if your symptoms worsen or if you develop any dizziness, shortness of breath, difficulty breathing, chest pain, blurry vision, loss of vision, nausea, vomiting, abdominal pain, fever, chills, back pain, or any other complaints. Prescriptions: New cyclobenzaprine 5 mg tablet 5 mg PO TID PRN (Reason: muscle spasm) 7 Days Qty: 21 0RF No Action cetirizine 10 mg tablet 10 mg PO DAILY Qty: 30 11RF lactulose 10 gram/15 mL solution 10 g PO BEDTIME PRN (Reason: constipation) 30 Days Qty: 237 0RF metronidazole 500 mg tablet 500 mg PO BID 7 Days Qty: 14 0RF sertraline 25 mg tablet 25 mg PO DAILY 90 Days Qty: 90 0RF ibuprofen 400 mg tablet 400 - 800 mg PO BID Qty: 120 5RF montelukast [Singulair] 10 mg tablet 10 mg PO BEDTIME 90 Days Qty: 90 3RF diphenhydramine HCl [Benadryl Allergy] 25 mg tablet 25 mg PO TID PRN (Reason: allergic reaction) Qty: 14 0RF cetirizine [Zyrtec] 10 mg tablet 10 mg PO DAILY PRN (Reason: allergy symptoms) Qty: 14 0RF hydrocortisone [Anti-Itch (HC)] 1 % cream 1 appl topical BID PRN (Reason: allergic reaction) Qty: 28.4 0RF cephalexin 500 mg capsule 500 mg PO QID 7 Days Qty: 28 0RF lorazepam 0.5 mg tablet 0.5 mg PO DAILY PRN (Reason: anxiety) 30 Days Qty: 30 0RF cholecalciferol (vitamin D3) 25 mcg (1,000 unit) capsule 25 mcg PO DAILY 90 Days Qty: 90 1RF furosemide 20 mg tablet 20 mg PO DAILY PRN (Reason: edema) 7 Days Qty: 7 0RF albuterol sulfate 2.5 mg /3 mL (0.083 %) solution for nebulization 2.5 mg inhalation Q6H PRN (Reason: shortness of breath or wheezing) 30 Days Qty: 180 11RF albuterol sulfate 90 mcg/actuation HFA aerosol inhaler 2 inh inhalation Q6H PRN (Reason: shortness of breath or wheezing) 30 Days Qty: 18 12RF Spiriva Respimat 2.5 mcg/actuation mist 2 puff inhalation DAILY 30 Days Qty: 1 11RF budesonide-formoterol [Symbicort] 160-4.5 mcg/actuation HFA aerosol inhaler 2 puff inhalation BID 30 Days Qty: 10.2 11RF Referrals: Karrie Reinoso MD [Primary Care Provider] - Print Language: Upper Sorbian
[2022-07-08] MEDS: Ketorolac Tromethamine 15 MG/ML VIAL IM (08:46)
[2022-07-08] MEDS: Cyclobenzaprine HCl 5 MG TABLET PO (08:46)
== END 2022-07-08 09:25 | disposition home or self-care (01) ==
PROVIDERS: Emergency Provider Emergency Medicine; PCP Internal Medicine
DX: M54.42 Lumbago with sciatica, left side (principal); M79.18 Myalgia, other site; E78.5 Hyperlipidemia, unspecified; M32.9 Systemic lupus erythematosus, unspecified; Z79.899 Other long term (current) drug therapy
CPT/HCPCS: 96372; 99283; 99284; J1885

== ENCOUNTER 2022-07-12 10:49 | Outpatient (REF) | payer OTHER, SELFPAY ==
--- NOTE | ~2022-07-12 | XR_ITS ---
EXAMINATION: XR CERVICAL SPINE XR LUMBAR SPINE CLINICAL INFORMATION: Cervicalgia, low back pain. COMPARISON: X-rays of the cervical spine May 2019. X-rays of lumbar sacral spine August 2012. TECHNIQUE: Lumbar spine 3 views. Cervical spine 4 views including swimmer's lateral. FINDINGS: Lumbosacral Spine: Vertebral bodies normally height with normal alignment. Endplate osteophytes at the L4-L5 level indicative of mild degenerative disease unchanged. No disc space narrowing. Remaining disc levels unremarkable. Facets unremarkable. Surrounding soft tissues and bone unremarkable. Cervical Spine: Normal alignment with normal vertebral body height. At C5-C6, there is mild endplate osteophytes without disc space narrowing indicative of mild degenerative disease unchanged. Remaining disc levels are unremarkable. Facets are unremarkable. XR/XR lumbar spine 2-3V IMPRESSION: LUMBAR SPINE: Mild spondylosis unchanged. CERVICAL SPINE: Mild spondylosis C5-C6 unchanged.
--- NOTE | ~2022-07-12 | XR_ITS ---
EXAMINATION: XR CERVICAL SPINE XR LUMBAR SPINE CLINICAL INFORMATION: Cervicalgia, low back pain. COMPARISON: X-rays of the cervical spine May 2019. X-rays of lumbar sacral spine August 2012. TECHNIQUE: Lumbar spine 3 views. Cervical spine 4 views including swimmer's lateral. FINDINGS: Lumbosacral Spine: Vertebral bodies normally height with normal alignment. Endplate osteophytes at the L4-L5 level indicative of mild degenerative disease unchanged. No disc space narrowing. Remaining disc levels unremarkable. Facets unremarkable. Surrounding soft tissues and bone unremarkable. Cervical Spine: Normal alignment with normal vertebral body height. At C5-C6, there is mild endplate osteophytes without disc space narrowing indicative of mild degenerative disease unchanged. Remaining disc levels are unremarkable. Facets are unremarkable. XR/XR cervical spine 3V IMPRESSION: LUMBAR SPINE: Mild spondylosis unchanged. CERVICAL SPINE: Mild spondylosis C5-C6 unchanged.
== END 2022-07-12 10:50 | disposition home or self-care (01) ==
LOC: HO.XRAY 10:49
PROVIDERS: PCP Internal Medicine; Visit Provider Internal Medicine Rheumatology
DX: M79.605 Pain in left leg (principal); M54.50 Low back pain, unspecified; M54.2 Cervicalgia; M54.32 Sciatica, left side
CPT/HCPCS: 72040; 72100; 99212

== ENCOUNTER 2022-07-12 12:12 | Outpatient (REF) | payer OTHER, SELFPAY ==
[2022-07-12 13:22] LABS: MANUAL DIFF FLAG NO
[2022-07-12 13:34] LABS: Basophils Absolute Auto 0.1 X10*3/uL (0.0-0.2); Eosinophils Absolute Auto 0.4 X10*3/uL (0.0-0.4); Eosinophils Percent Auto 4.6 % (0-4); Hematocrit 39.3 % (37.0-47.0); Hemoglobin 12.6 g/dl (12.0-16.0); Imm Gran Abs Auto 0.03 X10*3/uL (0.00-0.03); Imm Gran Pct Auto 0.4 % (0.0-0.4); Lymphocytes Absolute Auto 2.3 X10*3/uL (1.2-4.9); Lymphocytes Percent Auto 28.8 % (20-40); Mean Corpuscular HGB Conc 32.1 g/dl (31.0-35.0); Mean Corpuscular Hemoglobin 27.5 pg (27.0-33.0); Mean Corpuscular Volume 85.6 fL (80.0-98.0); Mean Platelet Volume 13.4 fL (9.4-12.3); Monocytes Absolute Auto 0.4 X10*3/uL (0.1-1.2); Neutrophils Absolute Auto 4.8 x10*3/uL (2.0-8.3); Neutrophils Percent Auto 60.2 % (45-73); Platelet Count 145 X10*3/uL (160-400); Red Blood Count 4.59 X10*6/uL (4.20-5.50); Red Cell Distribution Width 15.4 % (11.0-16.0)
[2022-07-12 14:37] LABS: Erythrocyte Sedimentation Rate 29 MM/HR (0-20)
== END 2022-07-12 12:13 | disposition home or self-care (01) ==
LOC: HO.10HDL 12:12
PROVIDERS: Visit Provider Internal Medicine Rheumatology
DX: M79.605 Pain in left leg (principal)
CPT/HCPCS: 36415; 85025; 85652; 86140

== ENCOUNTER 2022-09-10 06:35 | Outpatient (REF) | payer OTHER, SELFPAY ==
--- NOTE | ~2022-09-10 | XR_ITS ---
EXAMINATION: XR ANKLE, LEFT CLINICAL INFORMATION: Effusion. COMPARISON: Radiographs dated 12/30/2016. TECHNIQUE: AP, lateral, and mortise views of the left ankle. FINDINGS: Bony alignment and mineralization are normal. The ankle mortise is intact. There is mild peripheral osteophyte formation of the tibiotalar articulation anteriorly and medially. No fracture, dislocation or joint effusion is seen. Boehler's angle is normal. There is a small plantar calcaneal spur. There is degenerative change of the dorsal midfoot. There is soft tissue swelling, most pronounced laterally, where it is marked. XR/XR ankle LT 2V IMPRESSION: 1. No fracture, dislocation or left ankle joint effusion is seen. 2. There is marked soft tissue swelling, most pronounced adjacent to the lateral malleolus. 3. There is a small plantar calcaneal spur.
[2022-09-10 06:52] LABS: MANUAL DIFF FLAG NO
[2022-09-10 07:29] LABS: Basophils Absolute Auto 0.1 X10*3/uL (0.0-0.2); Basophils Percent Auto 0.7 % (0-2); Eosinophils Absolute Auto 0.3 X10*3/uL (0.0-0.4); Eosinophils Percent Auto 3.3 % (0-4); Hematocrit 38.7 % (37.0-47.0); Hemoglobin 12.7 g/dl (12.0-16.0); Imm Gran Abs Auto 0.03 X10*3/uL (0.00-0.03); Imm Gran Pct Auto 0.3 % (0.0-0.4); Lymphocytes Absolute Auto 2.5 X10*3/uL (1.2-4.9); Lymphocytes Percent Auto 28.3 % (20-40); Mean Corpuscular HGB Conc 32.8 g/dl (31.0-35.0); Mean Corpuscular Hemoglobin 27.6 pg (27.0-33.0); Mean Corpuscular Volume 84.1 fL (80.0-98.0); Mean Platelet Volume 12.5 fL (9.4-12.3); Monocytes Absolute Auto 0.4 X10*3/uL (0.1-1.2); Monocytes Percent Auto 4.1 % (2-11); Neutrophils Absolute Auto 5.6 x10*3/uL (2.0-8.3); Neutrophils Percent Auto 63.3 % (45-73); Platelet Count 161 X10*3/uL (160-400); Red Cell Distribution Width 15.3 % (11.0-16.0); White Blood Count 8.8 X10*3/uL (4.8-10.8)
[2022-09-10 08:12] LABS: Alanine Aminotransferase 16 U/L (0-31); Albumin Level 3.9 g/dL (3.5-5.0); Alkaline Phosphatase 115 U/L (39-117); Anion Gap 11 (12-20); Aspartate Amino Transferase 12 U/L (5-31); Bilirubin Total 0.5 mg/dL (0.0-1.0); Blood Urea Nitrogen 11 mg/dL (9-16); Calcium 9.1 mg/dL (8.4-10.2); Carbon Dioxide 25 mmol/L (22-29); Chloride 109 mmol/L (96-108); Cholesterol 188 mg/dL; Estimated Glomerular Filt Rate > 60; Free T4 (Free Thyroxine) 0.85 ng/dL (0.71-1.85); Glucose Fasting 100 mg/dL (60-99); HDL Cholesterol 44 mg/dL; LDL Cholesterol Calculated 125 mg/dl; Potassium 4.2 mmol/L (3.3-5.1); Sodium 141 mmol/L (135-145); Thyroid Stimulating Hormone 4.49 uIU/mL (0.32-4.0); Total Protein 6.6 g/dL (6.5-8.0); Triglycerides 96 mg/dL
[2022-09-12 23:39] LABS: TS Negative Control Passed; TS Panel A 0; TS Panel B 0; TS Positive Control Passed; TSpotTB Negative (Negative)
== END 2022-09-10 06:36 | disposition home or self-care (01) ==
LOC: HO.XRAY 06:35
PROVIDERS: Hospitalist; PCP Internal Medicine; Visit Provider Internal Medicine
DX: Z11.1 Encounter for screening for respiratory tuberculosis (principal); M25.472 Effusion, left ankle; M47.812 Spondylosis without myelopathy or radiculopathy, cervical region; E55.9 Vitamin D deficiency, unspecified; E78.5 Hyperlipidemia, unspecified; J45.41 Moderate persistent asthma with (acute) exacerbation
CPT/HCPCS: 36415; 73600; 80053; 80061; 82306; 84439; 84443; 85025; 86481

== ENCOUNTER 2022-09-16 14:17 | Outpatient (REF) | payer OTHER, SELFPAY ==
--- NOTE | ~2022-09-16 | MM_ITS ---
EXAMINATION: BONE DENSITOMETRY CLINICAL INDICATION: Unspecified menopausal and perimenopausal disorder. COMPARISON: Baseline BD dated 12/05/2019. TECHNIQUE: Using a tuul DXA System (software version: 13.1) manufactured by [employer], dual-energy x-ray absorptiometry was performed of the lumbar spine and left hip. The images are of good technical quality. Summary results are attached. FINDINGS: AP SPINE L1-L4: Current: BMD 0.959 g/cm2, Z-score -2.3, T-score -1.8, osteopenia, 6.0% decrease from baseline (<5% change is not significant). Baseline: BMD 1.020 g/cm2. LEFT FEMUR, NECK: Current: BMD 0.894 g/cm2, Z-score -0.8, T-score -1.0, normal. Baseline: BMD 0.904 g/cm2. LEFT FEMUR, TOTAL: Current: BMD 1.112 g/cm2, Z-score 0.6, T-score 0.8, normal, 1.1% increase from baseline (<5% change is not significant). Baseline: BMD 1.100 g/cm2. IDENTIFIED RISK FACTORS: Early menopause, secondary osteoporosis. HISTORY OF FRACTURE: None listed. MEDICATIONS: Calcium, vitamin D. MM/XR DEXA axial skeleton IMPRESSION: 1. DIAGNOSIS: Osteopenia based on the lowest T-score value of -1.8 in the lumbar spine applying World Health Organization criteria. 2. 10-YEAR FRACTURE RISK PREDICTION, FRAX: Major osteoporotic fracture (clinical spine, forearm, hip or shoulder) 2.5%. Hip fracture 0.1%. 3. Treatment Recommendations: NOF guidelines recommend consideration for treatment in postmenopausal women and men age 50 and older presenting with the following: -A hip or vertebral (clinical or morphometric) fracture. -T-score less than or equal to -2.5 at the femoral neck or spine after appropriate evaluation to exclude secondary causes. -Low bone mass at the hip or spine and a 10-year fracture probability by FRAX of greater than or equal to 3% for hip fracture or greater than or equal to 20% for major osteoporotic fracture based on the [place] adapted WHO algorithm. 4. Other Recommendations: All treatment decisions require clinical judgment and consideration of individual patient factors, including patient preferences, comorbidities, previous drug use, risk factors not captured in the FRAX model (e.g. frailty, falls, vitamin D deficiency, increased bone turnover, interval significant decline in bone density) and possible under or overestimation of fracture risk by FRAX. Additional medical evaluation for secondary cause of low bone mineral density may be appropriate. FUTURE SCAN RECOMMENDATION: People with diagnosed cases of osteoporosis or at high risk for fracture should have regular bone mineral density tests. For patients eligible for Medicare, routine testing is allowed once every 2 years. The testing frequency can be increased to one year for patients who have rapidly progressing disease, those who are receiving or discontinuing medical therapy to restore bone mass, or have additional risk factors.
== END 2022-09-16 14:18 | disposition home or self-care (01) ==
LOC: HO.MAMMO 14:17
PROVIDERS: Visit Provider Internal Medicine
DX: Z13.820 Encounter for screening for osteoporosis (principal); Z78.0 Asymptomatic menopausal state
CPT/HCPCS: 77080

== ENCOUNTER 2022-09-21 14:20 | Outpatient (REF) | payer OTHER, SELFPAY ==
--- NOTE | ~2022-09-21 | US_ITS ---
EXAMINATION: US THYROID CLINICAL INFORMATION: Nontoxic goiter, unspecified. COMPARISON: None available. TECHNIQUE: Linear transducer grayscale and color Doppler examination with attention to the region of the thyroid. FINDINGS: SIZE: Measurements of the thyroid lobes and nodules are given in sagittal, anteroposterior and transverse dimensions respectively. Right Thyroid Lobe: 5.3 x 1.8 x 1.6 cm, volume 8.4 mL. Parenchyma: The gland echotexture is homogeneous. Thyroid vascularity is normal. Left Thyroid Lobe: 5.5 x 1.6 x 1.5 cm, volume 7.1 mL. Parenchyma: The gland echotexture is homogeneous. Thyroid vascularity is normal. Isthmus: 0.3 cm in maximum AP dimension. Estimated total number of nodules greater than or equal to 1 cm: 1. 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 Location: Right superior/mid. Size: 0.5 x 0.4 x 0.5 cm, volume 0.05 mL. Nodule characteristics: Composition: Solid (2). Echogenicity: Cannot be determined (1). Shape: Not taller than wide (0). Margins: Smooth (0). Echogenic Foci: Peripheral calcifications (2). ACR TI-RADS total points: 5 ACR TI-RADS category: 4 2. Location: Right mid. Size: 1.2 x 1.0 x 0.9 cm, volume 0.5 mL. Nodule characteristics: Composition: Mixed cystic and solid (1). Echogenicity: Hypoechoic (2). Shape: Not taller than wide (0). Margins: Smooth (0). Echogenic Foci: None (0). ACR TI-RADS total points: 3 ACR TI-RADS category: 3 NODES: No lymphadenopathy is seen in the tissue surrounding the thyroid gland. US/US thyroid IMPRESSION: 2 right lobe thyroid nodules with characteristics 6 by size and TI-RAD categories not requiring follow-up. ACR TI-RADS RECOMMENDATION REFERENCE: * TR1 (0 point) and TR2 (2 points): No FNA or follow up. * TR3 (3 points): FNA if more than or equal to 2.5 cm in maximum dimension, followup ultrasound in 1, 3 and 5 years if 1.5 to 2.4 cm in maximum dimension. * TR4 (4-6 points): FNA if more than or equal to 1.5 cm in maximum dimension, followup ultrasound in 1, 2, 3 and 5 years if 1 to 1.4 cm in maximum dimension. * TR5 (more than or equal to 7 points): FNA if more than or equal to 1 cm in maximum dimension, followup ultrasound every year for 5 years if 0.5 to 0.9 cm in maximum dimension. * TR3, TR4 or TR5 nodules that are below the size threshold for followup receive no follow up.
== END 2022-09-21 14:21 | disposition home or self-care (01) ==
LOC: HO.US 14:20
PROVIDERS: Visit Provider Internal Medicine
DX: E04.9 Nontoxic goiter, unspecified (principal)
CPT/HCPCS: 76536

== ENCOUNTER → 2022-09-24 15:04 | Outpatient (BNVA) | payer OTHER, SELFPAY | PROVIDERS: PCP Internal Medicine; Visit Provider Hospitalist | DX: J45.40 Moderate persistent asthma, uncomplicated (principal); J40 Bronchitis, not specified as acute or chronic; R05.3 Chronic cough; D72.19 Other eosinophilia | CPT/HCPCS: 99212 ==

== ENCOUNTER 2022-10-13 10:00 | Outpatient (RCR) | payer OTHER, SELFPAY ==
--- NOTE | 2022-09-17 14:23 | MHC.PT.EP ---
[facility] [place] Office [place] Office [place] Office [address] [phone] F: [phone] F: [phone] F: [phone] F: [phone] Physical Therapy Plan of Care Date of Evaluation: Date of Surgery: N/A Diagnosis: M47.816 spondylosis without myelopathy or radiculopathy, lumbar region (RC) M47.812 spondylosis without myelopathy or radiculopathy, cervical region Assessment: pt is a 52 y/o female presenting to physical therapy w/ referring diagnosis of M47.816 spondylosis without myelopathy or radiculopathy, lumbar region; M47.812 spondylosis without myelopathy or radiculopathy, cervical region. Impairments include pain, decreased range of motion, decreased strength, impaired functional mobility, impaired postural awareness, and altered ambulation mechanics. pt is a good candidate for skilled PT due to age, potential remediation of impairments, typical disease/condition progression and prognosis, comorbidities, and motivation. pt would benefit from skilled PT intervention to provide a tailored strengthening and stretching exercise program, functional training, gait training, postural re-training, neuromuscular re-education, modalities as needed for pain, equipment safety demonstration. Frequency and Duration: The patient will be seen 2x/wk for 4 wks Short Term Goals: pt will be I w/ HEP to promote self-management of condition. pt will demo proper sitting posture w/ lumbar roll to promote neutral spine w/ seated ADLs. Chcf Goals: pt will demo proper lifting mechanics from floor to waist height x5 reps of 20# to promote neutral spine w/ lifting. pt will report a statistically significant improvement in self-reported outcome measure, Justice, to promote return to PLOF. Treatment Plan: Modalities to reduce pain, spasms and effusion. Manual therapy to restore motion and function. Therapeutic exercise to improve strength and flexibility. Neuromuscular re-education for posture and balance. Therapeutic activities to return to functional activities of daily living. Electronically signed by: Kassi Rojas PT, DPT Please sign and return to therapist. Thank you for your referral.
--- NOTE | 2022-10-13 10:49 | MHC.PT.DC ---
[facility] [place] [facility] [place] [facility] [address] Lizzy Garcia 140 [facility] [phone] F: [phone] F: [phone] F: [phone] F: [phone] Physical Therapy Discharge Report Diagnosis: M47.816 spondylosis without myelopathy or radiculopathy, lumbar region (RC) M47.812 spondylosis without myelopathy or radiculopathy, cervical region Date of Surgery: N/A Date of Evaluation: 09/17/22 Date of Discharge: Treatments to Date: 4 Cancellations to Date: 0 No Shows to Date: 0 Discharge Status: Discharge Summary: The patient overall has been consistently reporting improvement in her back pain. I have been feeling good. She is independent with her home program and was given an updated handout. She would like to return for treatment for her bilateral foot pain as this is more of an issue for her as of right now. She does have an appointment with a distributor advertising material but not until November 2022. She is discharged from this physical therapy plan of care for her back at this time. Electronically signed by: Please sign and return to therapist. Thank you for your referral.
== END 2022-10-13 10:49 | disposition home or self-care (01) ==
LOC: HO.PT 10:00
PROVIDERS: PCP Internal Medicine; Visit Provider Internal Medicine Rheumatology
DX: M47.816 Spondylosis without myelopathy or radiculopathy, lumbar region (principal); M47.812 Spondylosis without myelopathy or radiculopathy, cervical region
CPT/HCPCS: 97110; 97162

== ENCOUNTER → 2022-10-19 14:28 | Outpatient (REF) | payer OTHER, SELFPAY ==
--- NOTE | 2022-10-19 14:33 | CA_ITS ---
Transthoracic Echocardiogram Amended Patient (Last, First, Middle): Morgan Paige Bud Batres Gender: Female Date of : 1970 Age: 52 Procedure Date: 10/19/2022 Procedure Type: Transthoracic Echocardiogram Location: OP Height: 154.94 cm Weight: 108.86 kg BSA: 2.04 m2 Heart Rate: bpm BP: 122 / 68 mmHg Human Services Care Specialist: Referring MD: Hal Banuelos MD Symptoms: I27.20 - Pulmonary hypertension, unspecified Study Quality: Fair ECG Rhythm: Sinus Conclusions: - The left ventricular systolic function is normal. The calculated ejection fraction is 58% by biplane method. - No obvious valvular pathology seen on this study. - There is no evidence of pulmonary hypertension. Findings Left Ventricle Normal left ventricular cavity size. There is mildly increased left ventricular wall thickness. The left ventricular systolic function is normal. The calculated ejection fraction is 58% by biplane method. There is no evidence of regional wall motion abnormalities. Diastolic function is normal for age. LV peak GLS -18%. Right Ventricle Normal right ventricular cavity size. There is low normal right ventricular systolic function. Atria Both atria are normal in size. Aortic Valve There is a normal trileaflet aortic valve. There is no aortic valve stenosis. There is no aortic valve regurgitation. Mitral Valve The mitral valve appears normal. There is no mitral valve regurgitation. There is no mitral valve stenosis. Pulmonic Valve The pulmonic valve is likely normal. Tricuspid Valve Normal tricuspid valve structure. There is trace tricuspid valve regurgitation. There is no evidence of pulmonary hypertension. Great Vessels The asc aorta is normal in size. Venous The inferior vena cava is normal in size and collapses greater than 50% with inspiration. Pericardium/Pleural There is no evidence of pericardial effusion. Prior Study Comparison No significant change compared to prior study dated: 12/19/2019. Recommendations, Care & Conclusions No obvious valvular pathology seen on this study. Measurements 2D Linear Measurements IVSd: 1.30 0.6-0.9/0.6-1.0 cm LVIDd: 4.72 3.9-5.3/4.2-5.9 cm LVIDd Index: 2.31 2.4-3.2/2.2-3.1 cm/m2 LVIDs: 2.97 2.0-3.6 cm LVPWd: 1.23 0.7-1.1 cm Ao Root: 3.40 2.1-3.5 cm LA Diam: 3.50 2.7-3.8/3.0-4.0 cm LAIDs Index: 1.72 1.5-2.3 cm/m2 LV Mass: 286.96 67-162/88-224 g LV Mass Index: 140.67 43-95/49-115 g/m2 LVOT Diam: 2.00 3.0+(-)1.3 cm 2D Volumes LA Vol: 28.40 2D Systolic Function EF 4C: 55.50 >55% EF 2C: 62.30 >55% EF BiP: 58.30 >55% Mitral Valve MV Pk E: 0.60 MV PK A: 0.72 MV Decel Time: 150.00 E/A: 0.80 E'Lateral: 8.92 E'Medial: 7.72 E/E' Med: 7.80 E/E' Lat: 6.70 PHT: 44.00 MVA PHT: 5.00 Decel [place]: 4.00 Aortic Valve AoV Pk Armando: 1.41 AoV Mn Armando: 0.89 AoV VTI: 0.26 AoV Pk Grad: 8.00 Aov Mn Grad: 4.00 YOLI Cont.VTI: 2.96 LVOT LVOT Pk Armando: 1.29 LVOT Mn Armando: 0.70 LVOT VTI: 0.24 LVOT Pk Grad: 7.00 LVOT Mn Grad: 3.00 LVOT Diam: 2.00 LVOT Area: 3.14 Diastolic Function MV Pk E: 0.60 MV Pk A: 0.72 E/A: 0.80 E'Medial: 7.72 E/E' Med: 7.80 E' Laterial: 8.92 E/E' Lat: 6.70 Right Ventricle TAPSE (mm): 17.00 TVS' Armando: 11.00 Tricuspid Valve TR Pk Armando: 2.33 TR Pk Grad: 22.00 RA Press: 3.00 RVSP: 25.00 Great Vessels Aorta Ao Root-2D: 3.40 2.0-3.7 cm Ao Asc: 3.40 2.1-3.4 cm Pulmonary Valve PV Pk Armando: 1.03 Peak PV Grad: 4.00 Updated in Other Vendor System with Status of Final Bharath Guevara MD electronically signed on 10/20/2022 9:09:21 AM with status of Final
== END ==
LOC: HO.CARD 14:28
PROVIDERS: Visit Provider Hospitalist
DX: I27.20 Pulmonary hypertension, unspecified (principal); G47.33 Obstructive sleep apnea (adult) (pediatric)
CPT/HCPCS: 93306; 93356

== ENCOUNTER 2022-11-17 10:36 | Outpatient (AMB) | payer OTHER, SELFPAY ==
[2022-11-17 10:43] VITALS: BP 130/72; PULSE 75; RESP 18; TEMP 36.7; O2SAT 98; BMI 43.7
--- NOTE | 2022-11-17 10:43 | MHC.OFFVIS ---
Intake Vital Signs 11/17/22 10:43 Height 5 ft 2 in Weight 239 lb BMI 43.7 BP 130/72 Blood Pressure Location Lt brachial Position Sitting Respiration 18 Pulse 75 Pulse Source Pulse Oximeter Temp 98.1 F Temp Source Skin Pulse Oximetry (%) 98 Oxygen Delivery Method Room Air Intake Visit Reasons: F/U karrie and oa Allergies Seasonal Allergies Allergy (Severe, Verified 11/17/22 10:48) Difficulty Breathing Medication List - Last Reconciled 11/17/22 by Jose Hamilton MD albuterol sulfate 2.5 mg (3 mL) inhalation Q6H PRN 30 days albuterol sulfate 90 mcg/actuation 2 inhalations inhalation Q6H PRN 30 days budesonide-formoterol 160-4.5 mcg/actuation (Symbicort) 2 puffs inhalation BID 30 days calcium carbonate (Oyster Shell Calcium) 500 mg PO BID 90 days cetirizine 10 mg PO DAILY PRN cholecalciferol (vitamin D3) 25 mcg PO DAILY 90 days cyclobenzaprine 5 mg PO BEDTIME PRN 30 days diphenhydramine HCl (Benadryl Allergy) 25 mg PO TID PRN furosemide 20 mg PO DAILY PRN 30 days hydrocortisone 1% (Anti-Itch (hydrocortisone)) 1 appl topical BID PRN ibuprofen 400 - 800 mg (1 - 2 x 400 mg) PO BID lactulose 10 grams (15 mL) PO BEDTIME PRN 30 days lorazepam 0.5 mg PO DAILY PRN 30 days montelukast (Singulair) 10 mg PO BEDTIME 90 days nebulizers As directed sertraline 25 mg PO DAILY 90 days tiotropium bromide 2.5 mcg/actuation (Spiriva Respimat) 2 puffs inhalation DAILY 30 days HPI HPI Comments History of Present Illness Details The patient returns for evaluation of her widespread pains. When I had last seen her she was having back pain and sciatica. That did seem to improve with the physical therapy. She has been complaining more recently of some left foot pain. Mostly this is in the lateral instep region. She does have a podiatry appointment coming up to evaluate that further. There was no local injury. She does take ibuprofen 400 mg once or twice a day when she has pains. She admits this is most days. 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 There also days she feels like she has pain all over. She can not really describe where this is worse but she feels almost immobilized by it. She tried some cyclobenzaprine at night and that is occasionally helpful but she does not rely on it. [facility] Medical History (Updated 11/17/22 @ 13:52 by Jose Hamilton MD) Abdominal bloating Abnormal Pap smear of cervix Asthma BMI 40.0-44.9, adult Bronchitis Cholelithiasis Chronic cough Eosinophilia History of asthma History of diastolic dysfunction History of vitamin D deficiency Hx of coronary artery disease Hx of hyperlipidemia Hx of systemic lupus erythematosus (SLE) Hx of varicose veins Lupus Lymphedema Morbid obesity Osteopenia (~2019) Physical exam Pleuritic chest pain Right hip pain Tubular adenoma of colon (~2016) Venous insufficiency Vitamin B1 deficiency Vitamin D deficiency Surgical History History of cardiac cath History of colonoscopy History of ear surgery History of foot surgery History of hysteroscopy History of loop electrical excision procedure (LEEP) History of tubal ligation (~1992) Family History Father Diabetes Cancer Colon cancer Paternal Grandfather Diabetes Maternal Aunt Cancer History of breast cancer Mother Sudden Sister Arthritis Rheumatoid arthritis Hypothyroidism Sister No problems noted. Sister No problems noted. Brother Diabetes Brother No problems noted. Son No problems noted. Daughter No problems noted. Daughter No problems noted. Daughter Lupus Social History Housing: House Alcohol intake: never Patient Tobacco Use Status: Never used Tobacco e-Cigarette/Vaping Use: Never Used Second Hand Smoke Exposure: No service: No Current occupational status: employed Current occupational exposures/hazards: No Sexual orientation: Straight/Heterosexual Gender identity: Female Cognitive needs: No Hearing needs: No Vision needs: Yes Review of Systems Const Details: Negative for appetite change, weight change, fever, chills, malaise and fatigue Eyes Details: Negative for vision change, dry eyes,headaches and dizziness ENT Details: Negative for hearing change, tinnitus, oral ulcer, nose bleeds and oral dryness. Card Details: Negative chest pain, edema and syncope Resp Details: Negative for SOB, cough and wheezing GI Details: Negative indigestion/heartburn, nausea, abdominal pain, bowel changes, diarrhea, constipation and bloody stool. Skin/Breast Details: Negative for itching, rash, hives, Raynaud's symptoms, sun sensitivity, and skin cancer Neuro Details: Negative for epilepsy, palsy, stroke, changes in speech, tingling and weakness Psych Details: Negative for anxiety, depression and stress Endo Details: Negative for polyuria and polydypsia Noel/Lymph Details: Negative for excessive bruising or bleeding. Physical Exam Vital Signs: Last Vital Signs Temp 98.1 F 11/17/22 10:43 Pulse 75 11/17/22 10:43 Resp 18 11/17/22 10:43 BP 130/72 11/17/22 10:43 Pulse Ox 98 11/17/22 10:43 Oxygen Delivery Method Room Air 11/17/22 10:43 BMI result Body Mass Index 43.7 APPEARANCE: Patient in no acute distress EYES no redness, pupils equal and reactive to light, eyelids normal. No temporal artery tenderness, redness or swelling. EXTREMITIES: No edema. There are some superficial spider veins bilaterally. There is some mild pretibial and lateral tenderness around the veins but no evidence for a venous thrombosis. There is no calf tenderness, normal peripheral pulses. NEURO: Oriented and alert x3. No focal weakness. Reflexes symmetric. Gait normal. SKIN: No inflammatory or neoplastic lesions. Normal color and turgor JOINT EXAM: ?? Cervical Spine:? Full range of motion without pain; no tenderness. Thoracic Spine:.? No scoliosis.? No tenderness on palpation. Lumbar Spine:.? Alignment normal.? Mild pain with flexion at 75 degrees.? There is no paraspinal muscle tenderness.? Straight leg raising is negative.? The lower extremity strength and reflexes seem intact. Chest Wall:.? No tenderness, swelling, increased warmth or erythema. Hands:.? Normal pain-free range of motion without tenderness, swelling, increased warmth or erythema. Able to make a full fist and has a good home health clinical liaison strength. Wrists:.? Normal pain-free range of motion without tenderness, swelling, increased warmth or erythema. Elbows:. Normal pain-free range of motion without tenderness, swelling, increased warmth or erythema. Shoulders:.?? Full range of motion without pain. No tenderness, weakness, swelling, increased warmth or erythema. Hips:.? Full range of motion without pain. Hip bursa:.? No tenderness. Knees:.? Left: Mild discomfort with extremes of extension.? There is slight medial compartment tenderness without redness or effusion.? No patellofemoral crepitus or popliteal tenderness.? Right:? Normal pain-free range of motion without tenderness, swelling, increased warmth or erythema.? There is no patellofemoral crepitation Ankles:.? Left:? Pain-free range of motion with the some mild medial and lateral tenderness.? No swelling.? Right:? Normal pain-free range of motion without tenderness, swelling, increased warmth or erythema. Feet:.? There is bilateral pes planus deformity with some lateral instep tenderness mostly evident on the left. There is some prominence of the proximal end of the 5th metatarsal. She also has bilateral 1st MTP bony enlargement and mild hallux valgus deformity, a bit more prominent on the left.? No tenderness in the toes.? No soft tissue swelling, breaks in the skin, or sensory loss. Tender points:? Mild tenderness to digital palpation at the? trapezius,? lateral epicondyle, knees, greater trochanter area bilaterally. ? Results Reviewed Results Reviewed: Laboratory Tests 07/12/22 09/10/22 11/17/22 12:17 06:51 12:05 Hgb 12.7 ESR 29 H C-Reactive Protein 2.28 H Assessment & Plan Assessment & Plan (1) KARRIE positive: Comment: KARRIE negative in 2021. She was on hydroxychloroquine for a few years, discontinued in 2019. 2021: Normal or negative anti MAX, anti double-stranded DNA. 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 I do not see any signs of an active inflammatory arthritis. There are mild elevations of her ESR and CRP when last checked in the spring. We will recheck those but I do not think we can say that she has joint inflammation that leads to those elevations. She has many tender points so probably has some underlying fibromyalgia as well as osteoarthritis in the lumbar spine and the knees. The flatfoot deformity is giving her some lateral instep and lateral ankle discomfort. I think that would best be dealt with and Podiatry. Since she is taking the ibuprofen regularly I will check CBC and BMP. I do not think we need to follow-up on this until next spring. Orders: Orders Basic Metabolic Panel Today R70.0 - Elevated erythrocyte sedimentation rate, Z79.899 - Other longterm (current) drug therapy C Reactive Protein Today R70.0 - Elevated erythrocyte sedimentation rate, Z79.899 - Other local intermodal truck driver (current) drug therapy Complete Blood Count Auto Diff Today R70.0 - Elevated erythrocyte sedimentation rate, Z79.899 - Other local intermodal truck driver (current) drug therapy Erythrocyte Sedimentation Rate Today R70.0 - Elevated erythrocyte sedimentation rate, Z79.899 - Other longterm (current) drug therapy Coding Level of Care Code Est Pt Level 3 (14962) Diagnoses KARRIE positive R76.8 ESR raised R70.0 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
== END 2022-11-17 11:57 | disposition home or self-care (01) ==
PROVIDERS: PCP Internal Medicine; Visit Provider Internal Medicine Rheumatology
DX: R76.8 Other specified abnormal immunological findings in serum (principal); R70.0 Elevated erythrocyte sedimentation rate; Z79.899 Other long term (current) drug therapy; M47.816 Spondylosis without myelopathy or radiculopathy, lumbar region; M17.12 Unilateral primary osteoarthritis, left knee
CPT/HCPCS: 99213

== ENCOUNTER → 2022-11-17 10:36 | Outpatient (BNVA) | payer OTHER, SELFPAY | PROVIDERS: PCP Internal Medicine; Visit Provider Internal Medicine Rheumatology | DX: R76.8 Other specified abnormal immunological findings in serum (principal); R70.0 Elevated erythrocyte sedimentation rate; M47.816 Spondylosis without myelopathy or radiculopathy, lumbar region; M17.12 Unilateral primary osteoarthritis, left knee; Z79.899 Other long term (current) drug therapy | CPT/HCPCS: 99212 ==

== ENCOUNTER 2022-11-17 12:01 | Outpatient (REF) | payer OTHER, SELFPAY ==
[2022-11-17 13:24] LABS: MANUAL DIFF FLAG NO
[2022-11-17 13:38] LABS: Basophils Absolute Auto 0.1 X10*3/uL (0.0-0.2); Basophils Percent Auto 0.6 % (0-2); Eosinophils Absolute Auto 0.3 X10*3/uL (0.0-0.4); Eosinophils Percent Auto 3.4 % (0-4); Hemoglobin 12.7 g/dl (12.0-16.0); Imm Gran Abs Auto 0.02 X10*3/uL (0.00-0.03); Imm Gran Pct Auto 0.2 % (0.0-0.4); Lymphocytes Absolute Auto 2.4 X10*3/uL (1.2-4.9); Lymphocytes Percent Auto 28.3 % (20-40); Mean Corpuscular HGB Conc 31.8 g/dl (31.0-35.0); Mean Corpuscular Hemoglobin 27.5 pg (27.0-33.0); Mean Corpuscular Volume 86.8 fL (80.0-98.0); Mean Platelet Volume 12.9 fL (9.4-12.3); Monocytes Absolute Auto 0.4 X10*3/uL (0.1-1.2); Neutrophils Absolute Auto 5.2 x10*3/uL (2.0-8.3); Neutrophils Percent Auto 62.5 % (45-73); Platelet Count 151 X10*3/uL (160-400); Red Blood Count 4.61 X10*6/uL (4.20-5.50); Red Cell Distribution Width 15.2 % (11.0-16.0); White Blood Count 8.3 X10*3/uL (4.8-10.8)
[2022-11-17 13:53] LABS: Anion Gap 10 (12-20); Blood Urea Nitrogen 10 mg/dL (9-16); C Reactive Protein 2.28 mg/dL (< or = 0.50); Calcium 9.5 mg/dL (8.4-10.2); Carbon Dioxide 30 mmol/L (22-29); Chloride 105 mmol/L (96-108); Estimated Glomerular Filt Rate > 60; Glucose Random 88 mg/dL (60-115); Sodium 141 mmol/L (135-145)
[2022-11-17 14:20] LABS: Erythrocyte Sedimentation Rate 28 MM/HR (0-20)
== END 2022-11-17 12:02 | disposition home or self-care (01) ==
LOC: HO.10HDL 12:01
PROVIDERS: Visit Provider Internal Medicine Rheumatology
DX: R70.0 Elevated erythrocyte sedimentation rate (principal); R76.8 Other specified abnormal immunological findings in serum; M47.816 Spondylosis without myelopathy or radiculopathy, lumbar region; M17.12 Unilateral primary osteoarthritis, left knee; Z79.899 Other long term (current) drug therapy
CPT/HCPCS: 36415; 80048; 85025; 85652; 86140

== ENCOUNTER 2022-12-24 11:48 | Outpatient (REF) | payer OTHER, SELFPAY ==
--- NOTE | ~2022-12-24 | MM_ITS ---
EXAMINATION: MM SCREENING DIGITAL BREAST TOMOSYNTHESIS, BILATERAL CLINICAL INFORMATION: Screening. Asymptomatic. COMPARISON: Mammography: This study is compared with prior exams dating back to TECHNIQUE: Digital breast tomosynthesis is performed in both the craniocaudal and mediolateral oblique views along with computer-aided detection (CAD). Synthesized 2D images are generated from the tomosynthesis. FINDINGS: There are scattered areas of fibroglandular density (ACR BI-RADS breast composition Category b). There are no significant masses, abnormal calcifications, or other abnormalities. Bilateral benign calcifications which have been evaluated in the past with magnification imaging. MM/MM tomosynthesis screening BI IMPRESSION: No mammographic evidence of malignancy. ASSESSMENT: BI-RADS BI-RADS 2 - Benign Findings RECOMMENDATION: Routine annual mammography screening. 1 year F/U This examination should not preclude the clinical evaluation of a suspicious palpable abnormality. This patient's information was entered into a reminder system with a target due date for their next mammogram.
== END 2022-12-24 11:49 | disposition home or self-care (01) ==
LOC: HO.MAMMO 11:48
PROVIDERS: PCP Internal Medicine; Visit Provider Internal Medicine
DX: Z12.31 Encounter for screening mammogram for malignant neoplasm of breast (principal)
CPT/HCPCS: 77063; 77067

== ENCOUNTER → 2022-12-24 12:00 | Outpatient (BNV) | payer OTHER, SELFPAY | PROVIDERS: PCP Internal Medicine; Visit Provider Radiology Diagnostic Radiology | DX: Z12.31 Encounter for screening mammogram for malignant neoplasm of breast (principal) | CPT/HCPCS: 77063; 77067 ==

== ENCOUNTER 2023-02-22 15:23 | Outpatient (AMB) | payer OTHER, SELFPAY ==
--- NOTE | 2023-02-22 15:29 | A.OFFVIS_ITS ---
Intake Vital Signs 02/22/23 15:30 Height 5 ft 2 in Weight 240 lb BMI 43.9 Pulse 72 Pulse Source Pulse Oximeter Pulse Oximetry (%) 97 Oxygen Delivery Method Room Air Intake Visit Reasons: Asthma Histologist Required: No Allergies Seasonal Allergies Allergy (Severe, Verified 02/22/23 15:31) Difficulty Breathing HPI HPI Comments History of Present Illness Details The patient is a 53-year-old woman with a known history of systemic lupus erythematous follow-up Rheumatology in addition to known allergies. Apparently patient was in the usual state health until back in April when she started developing a cough. The cough got worse. She was evaluated multiple times apparently and was given antibiotics in addition to prednisone. In May she did have a chest x-ray demonstrating a airspace disease in the right suprahilar area suggesting pneumonia. She was given additional antibi otics. At some point her methotrexate was stopped and she was given prednisone and further antibiotics. At this point her cough is got significantly better. Only mild now. She does complaint of dyspnea on exertion [id number] severity. She did have pulmonary function studies which were relatively normal. She also had an echocardiogram done demonstrating mild diastolic dysfunction. She also has lower extremity edema. She is on diuretics. 09/24/2022 the patient is here for pulmona ry follow-up visit. Overall she is doing well on the current respiratory medications. She has been having issues with lower extremity edema. Further questions she also has daytime drowsiness. Her [place] score is elevated 11/24. The patient has been on diuretics for lower extremity edema. She is concerned because she does know why she is getting the swelling. We did talk about the importance of sodium intake and dietary discretion. The patient states that she does not consume sodium. Although it may be that she is taking it and foods that already contain it. In the meantime the patient has not started the diuretic as of yet. I did recommend that she started as per primary care recommendations. The patient will undergo an echocardiogram to further address for any evidence of any pulmonary hypertension or congestive heart failure. the patient will have her sleep study and echo will follow-up with Pulmonary to review the results. The patient will continue with current respiratory regimen and further recommendations based on forthcoming data. 02/22/2023 the patient is here for a pulmonary follow-up visit. Overall the patient continues to do well from a respiratory status. She continues with her Symbicort and she does use it twice a day. The patient also has been Singulair and Spiriva. She has not required any prednisone which is reassuring. We did review her echocardiogram demonstrating no evidence of any pulmonary hypertension. Ejection fraction is normal. She still working with her weight management. She is not interested in surgery. She would like medical weight management. I did give her some information about places to consider going in order to start therapy. She continues to have lower extremity edema. She does have prescription for Lasix. I did recommend she take only 1 tablet for 3 days and then stop it. She needs to continue with a low-sodium diet. Otherwise the patient is without any other complaints. Also to note the patient did have a home sleep study. Appears that she has mild sleep apnea. Mainly when laying on her back. She did not have any evidence of any sleep apnea when she later her side. Therefore she will try positional therapy right now. will follow-up in 6 months. If she continues to be symptomatic will consider CPAP therapy. FORMERLY [facility], [facility] Medical History (Updated 11/17/22 @ 13:52 by Jose Hamilton MD) Abnormal Pap smear of cervix Bronchitis Pleuritic chest pain Physical exam Venous insufficiency Osteopenia (~2019) Tubular adenoma of colon (~2016) Eosinophilia Chronic cough Vitamin D deficiency Vitamin B1 deficiency BMI 40.0-44.9, adult Cholelithiasis Right hip pain Abdominal bloating Lymphedema Morbid obesity Asthma Lupus Hx of coronary artery disease Hx of systemic lupus erythematosus (SLE) History of asthma History of diastolic dysfunction Hx of varicose veins History of vitamin D deficiency Hx of hyperlipidemia Surgical History History of loop electrical excision procedure (LEEP) History of cardiac cath History of colonoscopy History of foot surgery History of hysteroscopy History of tubal ligation (~1992) History of ear surgery Family History Father Diabetes Cancer Colon cancer Paternal Grandfather Diabetes Maternal Aunt Cancer History of breast cancer Mother Sudden Sister Arthritis Rheumatoid arthritis Hypothyroidism Sister No problems noted. Sister No problems noted. Brother Diabetes Brother No problems noted. Son No problems noted. Daughter No problems noted. Daughter No problems noted. Daughter Lupus Social History Housing: House Alcohol intake: never Patient Tobacco Use Status: Never used Tobacco e-Cigarette/Vaping Use: Never Used Second Hand Smoke Exposure: No service: No Current occupational status: employed Current occupational exposures/hazards: No Sexual orientation: Straight/Heterosexual Gender identity: Female Cognitive needs: No Hearing needs: No Vision needs: Yes Review of Systems Const Reports daytime sleepiness, Reports fatigue, Denies night sweats and Reports snoring ENT Denies change in voice, Denies lip swelling, Denies mouth pain, Reports nasal congestion, Reports nasal discharge, Reports sore throat and Denies tongue swelling Card Denies chest pain and Reports leg edema Resp Reports cough, Denies hemoptysis, Denies pain on inspiration, Denies pain with cough, Reports snoring and Reports wheezing GI Reports abdominal pain Musc Denies no additional complaints Neuro Denies Neuro-related abnormal movements Psych Denies no additional complaints Endo Reports fatigue Noel/Lymph Denies easy bleeding and Denies lymphadenopathy Aller/Immun Denies lip swelling, Denies tongue swelling and Reports wheezing Physical Exam Vital Signs: Last Vital Signs Pulse 72 02/22/23 15:30 Pulse Ox 97 02/22/23 15:30 Oxygen Delivery Method Room Air 02/22/23 15:30 BMI result Body Mass Index 43.9 Const General: alert Orientation/consciousness: patient oriented x3 HEENT Head: Yes normal to inspection Eyes General: appearance normal, both eyes and all related structures Neck Neck: Yes normal visual inspection, Yes full ROM and Yes no lymphadenopathy Chest Chest palpation & inspection: normal inspection of the chest and no tenderness Breast/axilla inspection: normal inspection of the breasts (no puckering, dimpling, peau de orange, retraction, discharge, masses) Resp Effort & Inspection: normal respiratory effort Auscultation: no rales, no rhonchi, no wheezes and diminished lung sounds Cardio Rate: regular rate Rhythm: regular rhythm Heart sounds: S1 normal heart sound present and S2 normal heart sound present GI Inspection: Yes normal to inspection and Yes obesity Palpation (GI): Soft to palpation Auscultation: normal bowel sounds Rectal Exam - Female: deferred General: Yes bladder normal to palpation External Female Exam: normal external appearance and normal appearance of the urethra Speculum Exam - Vagina: normal appearance of the vagina, normal palpation and normal vaginal discharge Speculum Exam - Cervix: normal appearance of the cervix, normal palpation and Other cervical findings present (deep cervix. Bled with pap smear.post LEEP appearance) Bimanual exam- vagina & uterus: normal bimanual exam, normal palpation, uterine size normal, bladder normal to palpation and normal palpation Bimanual Exam- Adnexa, other: normal adnexae and no masses Skin General skin exam: rashes and/or lesions noted Neuro General: patient oriented x3 Cognition (Neuro): normal cognition Extrem General: Yes edema Psych Attitude: cooperative Thought process: Normal thought process present Assessment & Plan Assessment & Plan (1) Asthma: Code(s): J45.909 - Unspecified asthma, uncomplicated Qualifiers: Asthma complication type: uncomplicated Asthma persistence: persistent Asthma severity: moderate Qualified Code(s): J45.40 - Moderate persistent asthma, uncomplicated (2) Chronic cough: Code(s): R05.3 - Chronic cough (3) Eosinophilia: Code(s): D72.10 - Eosinophilia, unspecified Qualifiers: Eosinophilia type: other eosinophilia Qualified Code(s): D72.19 - Other eosinophilia (4) MAR[place]ALL (obstructive sleep apnea): Code(s): G47.33 - Obstructive sleep apnea (adult) (pediatric) Plan Continue Symbicort continue Spiriva continue short-acting beta agonist as needed continue allergy medicine Lasix x3 days low-sodium diet positional therapy for sleep apnea. Consider starting CPAP therapy if still symptomatic follow-up 6 months Coding Level of Care Code Est Pt Level 4 (15831) Diagnoses Moderate persistent asthma without complication J45.40 Asthma complication type: uncomplicated Asthma persistence: persistent Asthma severity: moderate Chronic cough R05.3 Other eosinophilia D72.19 Eosinophilia type: other eosinophilia MARSHALL (obstructive sleep apnea) G47.33 Time Spent (min) 17
[2023-02-22 15:30] VITALS: PULSE 72; O2SAT 97; BMI 43.9
== END 2023-02-22 15:43 | disposition home or self-care (01) ==
PROVIDERS: PCP Internal Medicine; Visit Provider Hospitalist
DX: J45.40 Moderate persistent asthma, uncomplicated (principal); R05.3 Chronic cough; D72.19 Other eosinophilia; G47.33 Obstructive sleep apnea (adult) (pediatric)
CPT/HCPCS: 99214

== ENCOUNTER → 2023-02-22 15:23 | Outpatient (BNVA) | payer OTHER, SELFPAY | PROVIDERS: PCP Internal Medicine; Visit Provider Hospitalist | DX: J45.40 Moderate persistent asthma, uncomplicated (principal); R05.3 Chronic cough; G47.33 Obstructive sleep apnea (adult) (pediatric); D72.19 Other eosinophilia | CPT/HCPCS: 99212 ==

== ENCOUNTER 2023-03-24 13:50 | Outpatient (AMB) | payer OTHER, SELFPAY ==
--- NOTE | 2023-03-24 13:52 | MHC.OFFVIS ---
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 She is doing well with concerns: Intermittent bleeding. She reports a history of no menses at age 44 for 1 year. Nt having a healthy diet with calcium and vitamin D, no exercise. Currently not sexually active. Denies any vaginal dryness or irritation. STI testing offered; she declines. Last pap smear; prior HPV+/ Colpo =VIRY I. Last mammogram; UTD. Colonoscopy is UTD. Denies any family history of breast or ovarian. FH colon cancer. [facility] Medical History Abnormal Pap smear of cervix Bronchitis Pleuritic chest pain Physical exam Venous insufficiency Osteopenia (~2019) Tubular adenoma of colon (~2016) Eosinophilia Chronic cough Vitamin D deficiency Vitamin B1 deficiency BMI 40.0-44.9, adult Cholelithiasis Right hip pain Abdominal bloating Lymphedema Morbid obesity Asthma Lupus Hx of coronary artery disease Hx of systemic lupus erythematosus (SLE) History of asthma History of diastolic dysfunction Hx of varicose veins History of vitamin D deficiency Hx of hyperlipidemia Surgical History History of loop electrical excision procedure (LEEP) History of cardiac cath History of colonoscopy History of foot surgery History of hysteroscopy History of tubal ligation (~1992) History of ear surgery Family History Father Diabetes Cancer Colon cancer Paternal Grandfather Diabetes Maternal Aunt Cancer History of breast cancer Mother Sudden Sister Arthritis Rheumatoid arthritis Hypothyroidism Sister No problems noted. Sister No problems noted. Brother Diabetes Brother No problems noted. Son No problems noted. Daughter No problems noted. Daughter No problems noted. Daughter Lupus Social History Housing: House Alcohol intake: never Patient Tobacco Use Status: Never used Tobacco e-Cigarette/Vaping Use: Never Used Second Hand Smoke Exposure: No service: No Current occupational status: employed Current occupational exposures/hazards: No Sexual orientation: Straight/Heterosexual Gender identity: Female Cognitive needs: No Hearing needs: No Vision needs: Yes Female Reproductive History Menstrual control method: permanent sterilization Permanent Sterilization: BTL Total pregnancies: 4 Full term: 4 Number of Living Children: 4 Date of last pap smear: 01/20/22 (+hpv, colpo 03/16 viry 1) History of abnormal pap smear: Yes (see intake note) Date of Mammogram: 12/24/22 (Birad 2) Review of Systems Const All systems reviewed & are unremarkable except as noted in HPI and below Reports as per HPI Eyes Reports no additional complaints ENT Reports no additional complaints Card Reports no additional complaints Resp Reports no additional complaints GI Reports as per HPI and Reports no additional complaints Reports as per HPI Musc Reports no additional complaints Skin/Breast Reports as per HPI Neuro Reports no additional complaints Psych Reports no additional complaints Endo Reports no additional complaints Noel/Lymph Reports no additional complaints Aller/Immun Reports no additional complaints Physical Exam Vital Signs: Last Vital Signs BP 112/78 03/24/23 13:55 BMI result Body Mass Index 45.2 Const General: cooperative, healthy appearing, no acute distress, well developed and alert Orientation/consciousness: patient oriented x3 HEENT Head: Yes normal to inspection Eyes General: appearance normal, both eyes and all related structures Neck Neck: Yes normal visual inspection Thyroid: Thyroid normal Chest Chest palpation & inspection: normal inspection of the chest and other (no puckering, dimpling, peau de orange, retraction, discharge, masses) Breast/axilla inspection: normal inspection of the breasts Breast/axilla palpation: normal palpation of the breasts Resp Effort & Inspection: normal respiratory effort GI Other: obese Inspection: Yes normal to inspection Palpation (GI): Soft to palpation Rectal Exam - Female: deferred General: Yes bladder normal to palpation External Female Exam: normal external appearance and normal appearance of the urethra Speculum Exam - Vagina: normal appearance of the vagina, normal palpation and normal vaginal discharge Speculum Exam - Cervix: normal appearance of the cervix and normal palpation Bimanual exam- vagina & uterus: normal bimanual exam, normal palpation, uterine size normal, bladder normal to palpation, normal palpation and non-tender Bimanual Exam- Adnexa, other: no masses Skin General skin exam: no rashes or lesions noted Rashes: no rashes Neuro General: patient oriented x3 Cognition (Neuro): normal cognition Extrem General: Yes normal to inspection Psych Attitude: cooperative Thought process: Normal thought process present Assessment & Plan Assessment & Plan (1) Well female exam without gynecological exam: Code(s): Z00.00 - Encounter for general adult medical examination without abnormal findings (2) History of abnormal cervical Pap smear: Code(s): Z87.42 - Personal history of other diseases of the female genital tract (3) Postmenopausal bleeding: Code(s): N95.0 - Postmenopausal bleeding Plan Discussed: Current recommendations for pap smears per ASCCP guidelines. Breast awareness, periodic self breast exams and yearly mammogram. Maintain a healthy lifestyle, well balanced diet (Mediterranean diet), including Calcium 1,200 mg and Vitamin D 600 IU daily, and routine exercise. Discussed follow-up plan of care for her postmenopausal bleeding she is agreeable to book an appointment with Dr. Berry for consult for hysteroscopy. All of her questions and concerns were addressed to the best of my ability. 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 Orders: Orders Pap Smear Today Z00.00 - Encounter for general adult medical examination without abnormal findings, Z87.42 - Personal history of other diseases of the female genital tract Coding Level of Care Code Est Pt Prev Care 40-64y(77021) Diagnoses Well female exam without gynecological exam Z00.00 History of abnormal cervical Pap smear Z87.42 Postmenopausal bleeding N95.0
[2023-03-24 13:55] VITALS: BP 112/78; BMI 45.2
== END 2023-03-24 14:33 | disposition home or self-care (01) ==
PROVIDERS: Visit Provider Advanced Practice Midwife
DX: Z01.419 Encounter for gynecological examination (general) (routine) without abnormal findings (principal); Z87.42 Personal history of other diseases of the female genital tract; N95.0 Postmenopausal bleeding
CPT/HCPCS: 99396

== ENCOUNTER 2023-03-24 13:50 | Outpatient (REF) | payer OTHER, SELFPAY ==
[2023-03-30 03:43] LABS: HPV 16 RNA NOT DETECTED (NOT DETECTED); HPV mRNA E6/E7 rflx Detected (Not Detected)
== END 2023-03-24 13:51 | disposition home or self-care (01) ==
LOC: HO.LNP 13:50
PROVIDERS: Visit Provider Advanced Practice Midwife
DX: Z12.4 Encounter for screening for malignant neoplasm of cervix (principal); Z11.51 Encounter for screening for human papillomavirus (HPV); N95.0 Postmenopausal bleeding; Z87.42 Personal history of other diseases of the female genital tract
CPT/HCPCS: 87624; 87625; 88142

== ENCOUNTER 2023-05-16 16:30 | Outpatient (AMB) | payer OTHER, SELFPAY ==
[2023-05-16 16:43] VITALS: BP 126/80; BMI 44.6
--- NOTE | 2023-05-16 16:43 | A.OFFPC_ITS ---
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 Required: No Accompanied by: Self / Same As Patient Allergies Seasonal Allergies Allergy (Severe, Verified 05/16/23 16:56) Difficulty Breathing Medication List - Last Reconciled 05/16/23 by Karrie Morris MD albuterol sulfate 2.5 mg (3 mL) inhalation Q6H PRN 30 days albuterol sulfate 90 mcg/actuation 2 inhalations inhalation Q6H PRN 30 days budesonide-formoterol 160-4.5 mcg/actuation 2 puffs inhalation BID 90 days calcium carbonate (Oyster Shell Calcium) 500 mg PO BID 90 days cetirizine 10 mg PO DAILY PRN cholecalciferol (vitamin D3) 25 mcg PO DAILY 90 days cyclobenzaprine 5 mg PO BEDTIME PRN 30 days diphenhydramine HCl (Benadryl Allergy) 25 mg PO TID PRN furosemide 20 mg PO DAILY PRN 30 days ibuprofen 400 - 800 mg (1 - 2 x 400 mg) PO BID lactulose 10 grams (15 mL) PO BEDTIME PRN 30 days lorazepam 0.5 mg PO DAILY PRN 30 days montelukast (Singulair) 10 mg PO BEDTIME 90 days nebulizers As directed sertraline 25 mg PO DAILY 90 days tiotropium bromide 2.5 mcg/actuation (Spiriva Respimat) 2 puffs inhalation DAILY 30 days Tobacco use date assessed: 05/16/23 Dental Screening Dental Screen Date: 05/16/23 Did you have a dental visit in the last 12 months?: No Did you have a dental problem in the last 6 months where you did not have access to dental care?: No Was dental information given to patient?: Patient has dentist HPI HPI Comments History of Present Illness Details This is a 53-year-old female with mild major depression, chronic idiopathic constipation, morbid obesity and anxiety that comes today for follow- up on her conditions. Depression still present with sertraline 25 mg and I will increase it to 50 mg. Anxiety stable with benzodiazepines as needed. Constipation stable with lactulose as needed. She is morbidly obese with a BMI of 44.6 and declines weight loss surgery but is willing to start Wegovy. [facility] Medical History (Updated 05/16/23 @ 18:01 by Karrie Morris MD) Morbid obesity Abnormal Pap smear of cervix Bronchitis Pleuritic chest pain Physical exam Venous insufficiency Osteopenia (~2019) Tubular adenoma of colon (~2016) Eosinophilia Chronic cough Vitamin D deficiency Vitamin B1 deficiency BMI 40.0-44.9, adult Cholelithiasis Right hip pain Abdominal bloating Lymphedema Asthma Lupus Hx of coronary artery disease Hx of systemic lupus erythematosus (SLE) History of asthma History of diastolic dysfunction Hx of varicose veins History of vitamin D deficiency Hx of hyperlipidemia Surgical History History of loop electrical excision procedure (LEEP) History of cardiac cath History of colonoscopy History of foot surgery History of hysteroscopy History of tubal ligation (~1992) History of ear surgery Family History Father Diabetes Cancer Colon cancer Paternal Grandfather Diabetes Maternal Aunt Cancer History of breast cancer Mother Sudden Sister Arthritis Rheumatoid arthritis Hypothyroidism Sister No problems noted. Sister No problems noted. Brother Diabetes Brother No problems noted. Son No problems noted. Daughter No problems noted. Daughter No problems noted. Daughter Lupus Social History Housing: House Alcohol intake: never Patient Tobacco Use Status: Never used Tobacco e-Cigarette/Vaping Use: Never Used Second Hand Smoke Exposure: No service: No Current occupational status: employed Current occupational exposures/hazards: No Sexual orientation: Straight/Heterosexual Gender identity: Female Cognitive needs: No Hearing needs: No Vision needs: Yes Questionnaire PHQ-9 Over the last 2 weeks, how often have you been bothered by any of the following problems? 1. Little interest or pleasure in doing things: not at all 2. Feeling down, depressed, or hopeless: nearly every day 3. Trouble falling or staying asleep, or sleeping too much: several days 4. Feeling tired or having little energy: not at all 5. Poor appetite or overeating: more than half the days 6. Feeling bad about yourself - or that you are a failure or have let yourself or your family down: not at all 7. Trouble concentrating on things, such as reading the newspaper or watching television: not at all 8. Moving or speaking so slowly that other people could have noticed. Or the opposite - being so fidgety or restless that you have been moving around a lot more than usual: more than half the days 9. Thoughts that you would be better off or of hurting yourself in some way: not at all Total score: 8 Depression Screening Interpretation: Positive Depression Screening Follow-up: Existing condition and In treatment Depression Screening Done: Yes 77780 - PHQ-9 Billing: Yes Source: Developed by Drs. Geovany Meadows, Marcella Rodriguez, Chapo Newton and colleagues, with an educational karey from [employer]. Thrive Questionnaire Date Thrive assessed: 05/16/23 I am a: Patient What is your living situation today?: I have a steady place to live Within the past 12 months, did the food you bought not last and you didn't have the money to get more?: Never true Within the past 12 months, did you worry whether your food would run out before you got money to buy more?: Never true Do you have trouble paying for medicines?: No Do you have trouble getting transportation to medical appointments?: No Do you have trouble paying your heating and electricity bill?: No Do you have trouble taking care of your child, family member or friend?: No Do you have trouble with day-to-day activities such as bathing, preparing meals, shopping, managing finances, etc.?: No Are you currently unemployed and looking for a job?: No Are you interested in more education?: No Please select the resources that you would like help with: None Currently or been in a relationship where the following occur: no concerns reported THRIVE Score: 0 AUDIT C Alcohol Use Questionnaire (AUDIT-C) 1. How often do you have a drink containing alcohol?: Never Total Score: 0 JANELL-7 AMB Questionnaire JANELL-7 Date JANELL - 7 assessed: 05/16/23 Feeling nervous, anxious, or on edge: 3 = Nearly every day Not being able to stop or control worryin = Not at all Worrying too much about different things: 0 = Not at all Trouble relaxin = Several days Being so restless that it is hard to sit still: 1 = Several days Becoming easily annoyed or irritable: 0 = Not at all Feeling afraid as if something awful might happen: 1 = Several days Total JANELL-7 score (0-4 normal; 5-9 mild; 10-14 moderate; 15-21 severe): 6 Source: Developed by Drs. Geovany Meadows, Marcella Rodriguez, Chapo Newton and colleagues, with an educational karey from [employer]. JANELL-7 Assessment Billing JANELL-7 Assessment Tool: JANELL-7 Assessment 37103 Review of Systems Const All systems reviewed & are unremarkable except as noted in HPI and below Eyes Reports no additional complaints, Denies change in vision and Denies other visual disturbances Card Denies chest pain at rest, Denies chest pain with activity, Denies edema, Denies irregular heart rhythm, Denies claudication, Denies dyspnea, Denies dyspnea on exertion, Denies orthopnea, Denies paroxysmal nocturnal dyspnea and Denies slow heart rate Resp Denies cough, Denies dyspnea and Denies dyspnea on exertion GI Denies abdominal pain, Denies change in bowel habits, Denies excessive flatus, Denies nausea and Denies vomiting Denies urinary incontinence, Denies urinary hesitancy and Denies urinary urgency Musc Denies abnormal gait, Denies atrophy, Denies deformity and Denies limited range of motion Skin/Breast Denies bleeding lesions, Denies changing lesions and Denies rash Neuro Denies abnormal gait, Denies behavioral changes and Denies lack of coordination Psych Denies behavioral changes Physical exam (Primary Care) Vital Signs: Last Vital Signs BP 126/80 05/16/23 16:43 BMI result Body Mass Index 44.6 Tobacco/Smoking Status: Tobacco use Status Tobacco use date assessed 05/16/23 05/16/23 16:50 Patient Tobacco Use Status Never used Tobacco 05/16/23 16:50 e-Cigarette/Vaping Use Never Used 05/16/23 16:50 PHQ-9: PHQ-9 Score PHQ-9: Total score 8 05/16/23 17:00 Depression Screening Interpretation: Positive Depression Screening Follow-up: Existing condition and In treatment Thrive Assessment: Date of Thrive Assessment Date Thrive assessed 05/16/23 05/16/23 16:50 Currently or been in a relationship where the following occur: no concerns reported Eyes General: appearance normal, both eyes and all related structures Eyelids: Yes eyelids normal Conjunctivae: conjunctivae normal Neck Neck: Yes normal visual inspection and Yes supple Resp Effort & Inspection: normal respiratory effort Auscultation: clear to auscultation bilaterally Cardio Jugular venous distension: no JVD Rate: regular rate Rhythm: regular rhythm Heart sounds: S1 normal heart sound present and S2 normal heart sound present Extrem General: Yes full ROM Assessment and Plan Assessment & Plan (1) Morbid obesity: Code(s): E66.01 - Morbid (severe) obesity due to excess calories Plan: Start Wegovy. BMI goal is less than 30. (2) Mild episode of recurrent major depressive disorder: Code(s): F33.0 - Major depressive disorder, recurrent, mild Plan: Increase sertraline to 50 mg. (3) Anxiety: Code(s): F41.9 - Anxiety disorder, unspecified Plan: Continue benzodiazepines as needed. (4) Chronic idiopathic constipation: Code(s): K59.04 - Chronic idiopathic constipation Plan: Continue lactulose as needed. Orders: Orders Lipid Panel 4 Months E78.5 - Hyperlipidemia, unspecified Comprehensive [place]. Panel Fast 4 Months M47.816 - Spondylosis without myelopathy or radiculopathy, lumbar region Vitamin D 25-OH Total 4 Months E55.9 - Vitamin D deficiency, unspecified Medications: New semaglutide (weight loss) (Wegovy) administer weeks 1 through 4 of therapy 0.25 mg (0.5 mL) subcut QWEEK 28 days 2 mL 0RF E66.01 - Morbid (severe) obesity due to excess calories sertraline 50 mg PO DAILY 90 days 90 tabs 1RF Refilled furosemide 20 mg PO DAILY 30 days PRN 30 tabs 1RF edema M47.816 - Spondylosis without myelopathy or radiculopathy, lumbar region Discontinued sertraline Discontinued Reason: Patient Completed Course 25 mg PO DAILY 90 days 90 tabs 0RF Coding Level of Care Code Est Pt Level 4 (77663) Diagnoses Morbid obesity E66.01 Mild episode of recurrent major depressive disorder F33.0 Anxiety F41.9 Chronic idiopathic constipation K59.04 Additional Codes JANELL-7 Assessment Billing - JANELL-7 Assessment Tool: JANELL-7 Assessment 02171 ([id number]) Time Spent (min) 24
== END 2023-05-16 17:18 | disposition home or self-care (01) ==
PROVIDERS: Visit Provider Internal Medicine
DX: F33.0 Major depressive disorder, recurrent, mild (principal); F41.9 Anxiety disorder, unspecified; K59.04 Chronic idiopathic constipation
CPT/HCPCS: 99214

== ENCOUNTER 2023-06-22 07:22 | Emergency (ER) | payer OTHER, SELFPAY ==
--- NOTE | ~2023-06-22 | US_ITS ---
EXAMINATION: US VENOUS ULTRASOUND WITH DOPPLER LOWER EXTREMITY, RIGHT CLINICAL INFORMATION: Right lower extremity pain and swelling COMPARISON: None available. TECHNIQUE: Ultrasound of the deep veins is performed from the hip to the calf with compression sonography and color and pulse Doppler assessment. Spectral analysis with color-flow imaging is performed. FINDINGS: There is normal venous compression and respiratory variation and augmented flow. The visualized common femoral vein, superficial femoral vein, profunda femoral vein, popliteal vein, and the trifurcation region shows no evidence of deep venous thrombosis. There is no significant popliteal fossa cyst. If the patient's symptoms persist, followup ultrasound in 5 days 7 days might be of value to exclude proximal propagation from a non-visualized calf vein. US/US venous duplex LE RT IMPRESSION: No DVT demonstrated in the right lower extremity.
--- NOTE | ~2023-06-22 | US_ITS ---
EXAMINATION: ULTRASOUND LOWER EXTREMITY ARTERIAL, RIGHT TECHNIQUE: COLOR-FLOW DUPLEX IMAGING OF THE RIGHT LOWER EXTREMITY ARTERIAL SYSTEM. VELOCITY MEASUREMENTS THROUGHOUT THE FEMORAL ARTERIES. CLINICAL INFORMATION: Lower extremity pain and swelling COMPARISON: None. FINDINGS: RIGHT FEMORAL RUNOFF VELOCITIES: The right common femoral artery measures 96cm/s and is triphasic. The right profunda femoral artery measures 85cm/s and is triphasic. Right proximal superficial femoral artery measures 125 cm/s and is triphasic. Mid superficial femoral artery measures 109cm/s and is triphasic. Distal right superficial femoral artery [id number] and is triphasic. Right popliteal velocity measures 83cm/s and is triphasic. Posterior tibial velocity is 109cm/s and flow is monophasic. Peroneal velocity is 41cm/s and flow is triphasic. Anterior tibial velocity is 147cm/s and flow is monophasic. Dorsal pedis velocity is 135cm/s and flow is monophasic. Right RAKEL: Not obtained US/US arterial duplex LE RT IMPRESSION: 1. Patency of the visualized vasculature of the right lower extremity. 2. Infrapopliteal hemodynamic alterations in vascular flow with essentially monophasic waveforms throughout with the exception of the peroneal artery which demonstrates triphasic waveforms.
[2023-06-22 07:32] VITALS: BP 135/81; PULSE 76; RESP 18; TEMP 36.8
--- NOTE | 2023-06-22 07:48 | ED_ITS ---
HPI - General Adult General Chief complaint: Extremity Injury, Lower Stated complaint: R Leg and Ankle Pain Swelling No Injury Time Seen by Provider: 06/22/23 07:28 Source: patient Mode of arrival: ambulatory Limitations: no limitations History of Present Illness HPI narrative: 53-year-old female history of morbid obesity presents for evaluation of right lower extremity pain and swollen ongoing for the past few years however worsening she reports pain is particularly below the right knee, she reports her foot so swollen now that she can barely fit into sneakers or shoes. She reports she is uncomfortable pretty much all the time. Denies numbness, tingling, fevers, chills, chest pain, shortness of breath, headache, vision changes, dizziness, weakness. Patient has no history of DVT or PE. Not on blood thinners. Related Data Home Medications Medication Instructions Recorded Confirmed nebulizers 09/24/22 05/16/23 Previous Rx's Medication Instructions Recorded albuterol sulfate 2.5 mg/3 mL 2.5 mg (3 mL) inhalation Q6H PRN 05/07/21 (0.083 %) solution for nebulization shortness of breath or wheezing 30 days #180 mL albuterol sulfate 90 mcg/actuation 2 inh inhalation Q6H PRN shortness 05/07/21 aerosol inhaler of breath or wheezing 30 days #18 grams tiotropium bromide 2.5 2 puff inhalation DAILY 30 days #1 09/29/21 mcg/actuation mist for inhalation ea (Spiriva Respimat) lactulose 10 gram/15 mL oral 10 g (15 mL) PO BEDTIME PRN 10/06/21 solution constipation 30 days #237 mL lorazepam 0.5 mg tablet 0.5 mg PO DAILY PRN anxiety 30 01/21/22 days #30 tabs diphenhydramine HCl 25 mg tablet 25 mg PO TID PRN allergic reaction 03/07/22 (Benadryl Allergy) #14 tabs ibuprofen 400 mg tablet 400 - 800 mg (1 - 2 x 400 mg) PO 03/08/22 BID #120 tabs cyclobenzaprine 5 mg tablet 5 mg PO BEDTIME PRN muscle spasm 07/12/22 30 days #30 tabs cetirizine 10 mg tablet 10 mg PO DAILY PRN for allergies 09/14/22 #14 tabs calcium carbonate 500 mg calcium 500 mg PO BID 90 days #180 tabs 03/24/23 (1,250 mg) tablet (Oyster Shell Calcium) cholecalciferol (vitamin D3) 25 25 mcg PO DAILY 90 days #90 caps 03/24/23 mcg (1,000 unit) capsule budesonide-formoterol HFA 160 2 puff inhalation BID 90 days 04/14/23 mcg-4.5 mcg/actuation aerosol #30.6 ea inhaler furosemide 20 mg tablet 20 mg PO DAILY PRN edema 30 days 05/16/23 #30 tabs semaglutide (weight loss) 0.25 0.25 mg (0.5 mL) subcut QWEEK 28 05/16/23 mg/0.5 mL subcutaneous pen days #2 mL injector (Wegovy) sertraline 50 mg tablet 50 mg PO DAILY 90 days #90 tabs 05/16/23 montelukast 10 mg tablet 10 mg PO BEDTIME 90 days #90 tabs 06/02/23 (Singulair) ketorolac 10 mg tablet 10 mg PO TID PRN pain 5 days #15 06/22/23 tabs Allergies Allergy/AdvReac Type Severity Reaction Status Date / Time Seasonal Allergies Allergy Severe Difficulty Verified 06/22/23 08:01 Breathing Review of Systems 2 Review of Systems: Yes all other systems are reviewed and are negative PMFSH Past Medical History Attestation statement: The following information was validated with the patient. Source: old records reviewed and nursing notes reviewed Medical History Morbid obesity Abnormal Pap smear of cervix Bronchitis Pleuritic chest pain Physical exam Venous insufficiency Osteopenia (~2019) Tubular adenoma of colon (~2017) Eosinophilia Chronic cough Vitamin D deficiency Vitamin B1 deficiency BMI 40.0-44.9, adult Cholelithiasis Right hip pain Abdominal bloating Lymphedema Asthma Lupus Hx of coronary artery disease Hx of systemic lupus erythematosus (SLE) History of asthma History of diastolic dysfunction Hx of varicose veins History of vitamin D deficiency Hx of hyperlipidemia Surgical History History of loop electrical excision procedure (LEEP) History of cardiac cath History of colonoscopy History of foot surgery History of hysteroscopy History of tubal ligation (~1992) History of ear surgery Family History Family History Father Diabetes Cancer Colon cancer Paternal Grandfather Diabetes Maternal Aunt Cancer History of breast cancer Mother Sudden Sister Arthritis Rheumatoid arthritis Hypothyroidism Sister No problems noted. Sister No problems noted. Brother Diabetes Brother No problems noted. Son No problems noted. Daughter No problems noted. Daughter No problems noted. Daughter Lupus Social History Social History Housing: House Alcohol intake: never Patient Tobacco Use Status: Never used Tobacco Smoked in Last 30 Days: No e-Cigarette/Vaping Use: Never Used Second Hand Smoke Exposure: No Advance Directives: No Advance Directives Information Provided: Yes Patient : No service: No Current occupational status: employed Current occupational exposures/hazards: No Sexual orientation: Straight/Heterosexual Gender identity: Female Cognitive needs: No Hearing needs: No Vision needs: Yes Physical Exam ED Vital Signs: Vital Signs - 24 hr 06/22/23 07:32 06/22/23 07:53 Temperature 98.2 F 98.2 F Pulse Rate 76 76 Respiratory Rate 18 18 Blood Pressure 135/81 135/81 Pulse Oximetry 96 Oxygen Delivery Method Room Air BMI result Body Mass Index 43.9 Vital signs stable. Appearance: Alert.? Oriented X3.? No acute distress.? Head: Normocephalic, atraumatic, no step-offs or deformities Eyes: Pupils equal, round and reactive to light.? Neck: Normal inspection.? Neck supple.? CVS: Normal heart rate and rhythm.? Pulses normal.? Respiratory: No respiratory distress.? Breath sounds normal.? Abdomen: Soft and nontender.? Skin: Skin warm and dry.? Normal skin color.? Normal skin turgor.? Extremities:3+ non pitting edema from knee down to RLE and 2+ non pitting edema from knee down to LLE. 2+ AT, PT,popliteal pulses equal and b/l. .? No calf ttp. 5/5 strength to bilateral upper and lower extremities Neuro: Oriented X 3.? No motor deficit.? No sensory deficit. CN 2-12 intact Course Reevaluation(s) Reevaluation #1: CBC unremarkable. Chemistry no acute findings requiring intervention. Coags unremarkable. Ultrasound no DVT in the right lower extremity. Arterial scan showing patency of the visualized vasculature of the right lower extremity. Infrapopliteal hemodynamic alterations and vascular flow with essentially monophasic waveforms throughout with the exception of the peroneal artery which demonstrates triphasic waveforms. Patient will be given Toradol for pain. Patient to follow-up with PCP. Educated patient on diagnosis and treatment plan, answered all question, patient verbalizes understanding. At this time patient will be discharged home, advised to return with new or worsening symptoms. Educated on worrisome signs and symptoms and when to return. At this time I feel comfortable discharge home. Time: 08:52 Medical Decision Making Medical Decision Making [facility] Narrative: 53-year-old female presenting for evaluation of right lower leg pain and swelling ongoing for the past few years worsening acutely over the past week Physical exam significant for 3+ non pitting edema from knee down to RLE and 2+ non pitting edema from knee down to LLE. 2+ AT, PT,popliteal pulses equal and b/l. .? No calf ttp. 5/5 strength to bilateral upper and lower extremities' History and physical exam concerning for possible DVT. Less likely arterial occlusion. Unlikely fracture dislocation. Could also be dependent edema from gravity. No signs of cellulitis. No associated trauma no fracture dislocation suspected. Plan basic labs, arterial and venous scan Differential Diagnosis Differential Diagnoses: The differential diagnosis associated with the presentation includes History and physical exam concerning for possible DVT. Less likely arterial occlusion. Unlikely fracture dislocation. Could also be dependent edema from gravity. No signs of cellulitis. No associated trauma no fracture dislocation suspected. Admission/Observation Consideration of admission/observation: Escalation of care including admission/observation considered Unlikely Lab Data [facility] Lab Attestation statement: I reviewed the patient's lab results. 06/22/23 07:48 06/22/23 07:48 Labs: Lab Results 06/22/23 Range/Units 07:48 WBC 7.6 (4.8-10.8) X10*3/uL RBC 4.50 (4.20-5.50) X10*6/uL Hgb 12.3 (12.0-16.0) g/dl Hct 37.5 (37.0-47.0) % MCV 83.3 (80.0-98.0) fL MCH 27.3 (27.0-33.0) pg MCHC 32.8 (31.0-35.0) g/dl RDW 15.7 (11.0-16.0) % Plt Count 152 L (160-400) X10*3/uL MPV 12.1 (9.4-12.3) fL Immature Gran % (Auto) 0.5 H (0.0-0.4) % Neut % (Auto) 67.0 (45-73) % Lymph % (Auto) 25.1 (20-40) % Cobb % (Auto) 3.3 (2-11) % Eos % (Auto) 3.4 (0-4) % Baso % (Auto) 0.7 (0-2) % Lymph # (Auto) 1.9 (1.2-4.9) X10*3/uL Cobb # (Auto) 0.3 (0.1-1.2) X10*3/uL Eos # (Auto) 0.3 (0.0-0.4) X10*3/uL Baso # (Auto) 0.1 (0.0-0.2) X10*3/uL Abs Immat Gran (auto) 0.04 H (0.00-0.03) X10*3/uL Absolute Neuts (auto) 5.1 (2.0-8.3) x10*3/uL Absolute Nucleated RBC 0.000 (0.0-0.012) X10*3/uL Nucleated RBC % (auto) 0.0 (0.0-0.2) /100WBC PT 12.6 (11.1-13.3) SEC INR 1.0 (0.9-1.1) Sodium 139 (135-145) mmol/L Potassium 3.8 (3.3-5.1) mmol/L Chloride 106 (96-108) mmol/L Carbon Dioxide 26 (22-29) mmol/L Anion Gap 11 L (12-20) BUN 11 (9-16) mg/dL Creatinine 0.83 (0.5-1.4) mg/dL Estim Creat Clear Calc 90.0 Estimated GFR > 60 Random Glucose 159 H (60-115) mg/dL Calcium 9.0 (8.4-10.2) mg/dL Magnesium 1.8 (1.6-2.6) mg/dL Total Bilirubin 0.3 (0.0-1.0) mg/dL AST 16 (5-31) U/L ALT 17 (0-31) U/L Alkaline Phosphatase 127 H (39-117) U/L Total Protein 6.9 (6.5-8.0) g/dL Albumin 3.8 (3.5-5.0) g/dL Independent Interpretation I performed an independent interpretation of an: Ultrasound Radiology Impression Discussion of test interpretation with radiology: I have reviewed the radiologist's reading. Chronic Conditions Patient?s care impacted by: Other (Obesity) Critical Care Time Critical Care Time Critical Care Time: No Discharge Plan Discharge Clinical Impression: Leg pain, right, Atherosclerosis Patient Disposition: Home, Self-Care Instructions: Leg Pain (ED) Additional Instructions: Take your medications as prescribed. If you were prescribed antibiotics today, it is important that you take your medication to their entirety, do not skip any doses, do not finish them early. Follow-up with your primary care provider this week. Return to the emergency department with new or worsening symptoms. Such as fevers, chills, chest pain, shortness of breath, nausea, vomiting, dizziness, headache, vision changes, lethargy In case of emergency call 911 US/US arterial duplex LE RT IMPRESSION: 1. Patency of the visualized vasculature of the right lower extremity. 2. Infrapopliteal hemodynamic alterations in vascular flow with essentially monophasic waveforms throughout with the exception of the peroneal artery which demonstrates triphasic waveforms. US/US venous duplex LE RT IMPRESSION: No DVT demonstrated in the right lower extremity. Prescriptions: New ketorolac 10 mg tablet 10 mg PO TID PRN (Reason: pain) 5 Days Qty: 15 0RF No Action lactulose 10 gram/15 mL solution 10 g PO BEDTIME PRN (Reason: constipation) 30 Days Qty: 237 0RF ibuprofen 400 mg tablet 400 - 800 mg PO BID Qty: 120 5RF cetirizine 10 mg tablet 10 mg PO DAILY PRN (Reason: for allergies) Qty: 14 0RF calcium carbonate [Oyster Shell Calcium] 500 mg calcium (1,250 mg) tablet 500 mg PO BID 90 Days Qty: 180 1RF cholecalciferol (vitamin D3) 25 mcg (1,000 unit) capsule 25 mcg PO DAILY 90 Days Qty: 90 1RF budesonide-formoterol 160-4.5 mcg/actuation HFA aerosol inhaler 2 puff inhalation BID 90 Days Qty: 30.6 0RF montelukast [Singulair] 10 mg tablet 10 mg PO BEDTIME 90 Days Qty: 90 3RF diphenhydramine HCl [Benadryl Allergy] 25 mg tablet 25 mg PO TID PRN (Reason: allergic reaction) Qty: 14 0RF Wegovy 0.25 mg/0.5 mL pen injector 0.25 mg subcut QWEEK 28 Days Qty: 2 0RF Rx Instructions: administer weeks 1 through 4 of therapy furosemide 20 mg tablet 20 mg PO DAILY PRN (Reason: edema) 30 Days Qty: 30 1RF sertraline 50 mg tablet 50 mg PO DAILY 90 Days Qty: 90 1RF lorazepam 0.5 mg tablet 0.5 mg PO DAILY PRN (Reason: anxiety) 30 Days Qty: 30 0RF albuterol sulfate 2.5 mg /3 mL (0.083 %) solution for nebulization 2.5 mg inhalation Q6H PRN (Reason: shortness of breath or wheezing) 30 Days Qty: 180 11RF albuterol sulfate 90 mcg/actuation HFA aerosol inhaler 2 inh inhalation Q6H PRN (Reason: shortness of breath or wheezing) 30 Days Qty: 18 12RF Spiriva Respimat 2.5 mcg/actuation mist 2 puff inhalation DAILY 30 Days Qty: 1 11RF cyclobenzaprine 5 mg tablet 5 mg PO BEDTIME PRN (Reason: muscle spasm) 30 Days Qty: 30 2RF (DME) nebulizers [facility] [place] See Rx Instructions .Route Rx Instructions: As directed Referrals: Karrie Reinoso MD [Primary Care Provider] - 2 days [facility] [Provider Group] - 1 week Stand Alone Forms: Work/School Release
[2023-06-22 07:52] LABS: MANUAL DIFF FLAG NO
[2023-06-22 07:53] VITALS: BP 135/81; PULSE 76; RESP 18; TEMP 36.8; O2SAT 96; BMI 43.9
[2023-06-22 07:55] LABS: Basophils Absolute Auto 0.1 X10*3/uL (0.0-0.2); Basophils Percent Auto 0.7 % (0-2); Eosinophils Absolute Auto 0.3 X10*3/uL (0.0-0.4); Eosinophils Percent Auto 3.4 % (0-4); Hematocrit 37.5 % (37.0-47.0); Hemoglobin 12.3 g/dl (12.0-16.0); Imm Gran Abs Auto 0.04 X10*3/uL (0.00-0.03); Imm Gran Pct Auto 0.5 % (0.0-0.4); Lymphocytes Absolute Auto 1.9 X10*3/uL (1.2-4.9); Lymphocytes Percent Auto 25.1 % (20-40); Mean Corpuscular HGB Conc 32.8 g/dl (31.0-35.0); Mean Corpuscular Hemoglobin 27.3 pg (27.0-33.0); Mean Corpuscular Volume 83.3 fL (80.0-98.0); Mean Platelet Volume 12.1 fL (9.4-12.3); Monocytes Absolute Auto 0.3 X10*3/uL (0.1-1.2); Monocytes Percent Auto 3.3 % (2-11); Neutrophils Absolute Auto 5.1 x10*3/uL (2.0-8.3); Platelet Count 152 X10*3/uL (160-400); Red Cell Distribution Width 15.7 % (11.0-16.0); White Blood Count 7.6 X10*3/uL (4.8-10.8)
[2023-06-22 08:02] LABS: Prothrombin Time 12.6 SEC (11.1-13.3)
[2023-06-22 08:10] LABS: Alanine Aminotransferase 17 U/L (0-31); Albumin Level 3.8 g/dL (3.5-5.0); Alkaline Phosphatase 127 U/L (39-117); Anion Gap 11 (12-20); Aspartate Amino Transferase 16 U/L (5-31); Bilirubin Total 0.3 mg/dL (0.0-1.0); Blood Urea Nitrogen 11 mg/dL (9-16); Carbon Dioxide 26 mmol/L (22-29); Chloride 106 mmol/L (96-108); Estimated Glomerular Filt Rate > 60; Glucose Random 159 mg/dL (60-115); Magnesium 1.8 mg/dL (1.6-2.6); Potassium 3.8 mmol/L (3.3-5.1); Sodium 139 mmol/L (135-145); Total Protein 6.9 g/dL (6.5-8.0)
--- NOTE | 2023-06-22 08:11 | PC.NURSE ---
pt alert and oriented, skin appropriate for ethnicity, pt present to the ed for right ankle swelling and pain that has been there on and off for years, ankle does appear to be swollen at this time, denies injury/fall.
[2023-06-22 09:18] LABS: B Type Natriuretic Peptide < 10 pg/mL (<100)
[2023-06-22] MEDS: Ketorolac Tromethamine 30 MG/ML VIAL IM (09:20)
== END 2023-06-22 09:28 | disposition home or self-care (01) ==
PROVIDERS: Physician Assistant; Emergency Provider Emergency Medicine; PCP Internal Medicine
DX: M79.604 Pain in right leg (principal); I70.90 Unspecified atherosclerosis; E66.01 Morbid (severe) obesity due to excess calories
CPT/HCPCS: 36415; 80053; 83735; 83880; 85025; 85610; 93926; 93971; 96372; 99284; J1885

== ENCOUNTER 2023-08-02 14:02 | Outpatient (AMB) | payer OTHER, SELFPAY ==
[2023-08-02 14:04] VITALS: BMI 45.2
--- NOTE | 2023-08-02 14:04 | A.OFFVIS_ITS ---
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 Pt states she is having swelling in both of her legs and ankles. She also states she gets numbness in her legs. She states she does experience foot pain randomly. She states she also some discoloration in her ankles. 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 She had significant swelling and pain along with skin changes. That brought her to the emergency room on 06/22/2023. At that time she is complaining of severe right leg and ankle swelling and pain. Of note she had seen Dr. Lema back in 2012 and 2019. At that time she had had prior venous ablation is. Unclear what was exactly done at that time. She had seen us back in 2017 at that time she was negative for any significant venous insufficiency. She now presents to us for vascular evaluation. [facility] Medical History Morbid obesity Abnormal Pap smear of cervix Bronchitis Pleuritic chest pain Physical exam Venous insufficiency Osteopenia (~2019) Tubular adenoma of colon (~2016) Eosinophilia Chronic cough Vitamin D deficiency Vitamin B1 deficiency BMI 40.0-44.9, adult Cholelithiasis Right hip pain Abdominal bloating Lymphedema Asthma Lupus Hx of coronary artery disease Hx of systemic lupus erythematosus (SLE) History of asthma History of diastolic dysfunction Hx of varicose veins History of vitamin D deficiency Hx of hyperlipidemia Surgical History History of loop electrical excision procedure (LEEP) History of cardiac cath History of colonoscopy History of foot surgery History of hysteroscopy History of tubal ligation (~1992) History of ear surgery Family History Father Diabetes Cancer Colon cancer Paternal Grandfather Diabetes Maternal Aunt Cancer History of breast cancer Mother Sudden Sister Arthritis Rheumatoid arthritis Hypothyroidism Sister No problems noted. Sister No problems noted. Brother Diabetes Brother No problems noted. Son No problems noted. Daughter No problems noted. Daughter No problems noted. Daughter Lupus Social History Housing: House Alcohol intake: never Patient Tobacco Use Status: Never used Tobacco e-Cigarette/Vaping Use: Never Used Second Hand Smoke Exposure: No service: No Current occupational status: employed Current occupational exposures/hazards: No Sexual orientation: Straight/Heterosexual Gender identity: Female Cognitive needs: No Hearing needs: No Vision needs: Yes Review of Systems Const All systems reviewed & are unremarkable except as noted in HPI and below Reports no additional complaints ENT Reports Normal hearing present Card Denies chest pain, Denies chest pain at rest, Denies chest pain with activity and Denies pedal edema Resp Denies cough GI Denies abdominal pain Musc Denies abnormal gait, Denies muscle cramps and Denies radiating pain into limb Skin/Breast Denies skin ulcer and Denies wounds Neuro Reports Normal hearing present and Denies abnormal gait Psych Reports no additional complaints Physical Exam Vital Signs: BMI result Body Mass Index 45.2 Const General: cooperative, healthy appearing and comfortable Orientation/consciousness: oriented to person, oriented to place and oriented to time HEENT Head: Yes normal to inspection Neck Neck: Yes normal visual inspection Carotids: no bruits Chest Chest palpation & inspection: normal inspection of the chest Resp Effort & Inspection: normal respiratory effort and able to speak in complete sentences Auscultation: clear to auscultation bilaterally, no crackles, no rales, no rhonchi and no wheezes Cardio Rate: regular rate Rhythm: regular rhythm Heart sounds: S1 normal heart sound present and S2 normal heart sound present Bruits: no carotid bruits Peripheral pulses: Peripheral pulses 2+ throughout GI Inspection: Yes normal to inspection Skin Wounds: no wounds Hair: normal Neuro General: oriented to person, oriented to place and oriented to time Cranial nerves: Yes CN's II-XII intact bilaterally and Yes Normal hearing present Cognition (Neuro): normal cognition Motor exam (neuro): 5/5 motor strength present throughout Extrem Other: venous exam: +2 edema General: No clubbing, No cyanosis and Yes edema Psych Appearance: grossly normal Mental Status: mental status grossly normal Speech and movement: Normal speech and movement present Assessment & Plan Assessment & Plan (1) Varicose veins of right lower extremity with inflammation: Code(s): I83.11 - Varicose veins of right lower extremity with inflammation Plan: In short patient has significant lower extremity swelling. I do believe this is multifactorial and part of it may be related to her high BMI of 45.2. We did discuss routine conservative measures including compression elevation and exercise. I did take the liberty of ordering repeat venous insufficiency testing to rule that out. Should that prove to be negative may benefit from lymphedema evaluation. She will follow up with us after testing. Thank you for allowing us to assist in her care. If there are any questions or concerns please do not hesitate to contact us. Orders: Orders US venous duplex LE BI 1 Week I83.11 - Varicose veins of right lower extremity with inflammation Coding Level of Care Code Est Pt Level 4 (89386) Diagnoses Varicose veins of right lower extremity with inflammation I83.11
== END 2023-08-02 14:42 | disposition home or self-care (01) ==
PROVIDERS: PCP Internal Medicine; Visit Provider Surgery Vascular Surgery
DX: I83.11 Varicose veins of right lower extremity with inflammation (principal)
CPT/HCPCS: 99213

== ENCOUNTER → 2023-08-02 14:02 | Outpatient (BNVA) | payer OTHER, SELFPAY | PROVIDERS: PCP Internal Medicine; Visit Provider Surgery Vascular Surgery | DX: I83.11 Varicose veins of right lower extremity with inflammation (principal) | CPT/HCPCS: 99212 ==

== ENCOUNTER 2023-08-09 08:20 | Outpatient (REF) | payer OTHER, SELFPAY ==
--- NOTE | ~2023-08-09 | US_ITS ---
EXAMINATION: US LOWER EXTREMITY VENOUS (REFLUX EXAM), BILATERAL CLINICAL INDICATION: Varicose veins of right lower extremity with inflammation COMPARISON: Right lower extremity venous ultrasound dated 06/22/2039 TECHNIQUE: Color flow triplex imaging and compression Doppler was performed to evaluate both the deep and the superficial systems bilaterally. To evaluate the superficial system, the examination was performed in the upright position. Color-flow Doppler ultrasound and compression ultrasound were utilized. In addition, maneuvers were utilized to demonstrate reflux. FINDINGS: 1. DEEP VENOUS ULTRASOUND OF THE RIGHT LOWER EXTREMITY: Common Femoral Vein: Compressible, normal respiratory variation and augmented flow. Femoral Vein: Compressible, normal color flow and augmentation. Popliteal Vein: Compressible, normal augmentation. Deep Reflux: There is no evidence of reflux in the deep system in either the common femoral vein, superficial femoral or the popliteal vein. There is no evidence of a Goff's cyst. 2. SUPERFICIAL ULTRASOUND WITH DOPPLER OF RIGHT LOWER EXTREMITY: GREAT SAPHENOUS VEIN: Saphenofemoral Junction: 0.6 cm; Reflux: 0 ms Proximal Thigh: 0.6 cm; Reflux: 0 ms Mid Thigh: 0.4 cm; Reflux: 0 ms Above Knee: 0.2 cm; Reflux: 0 ms At Knee: Not seen Below Knee: 0.2 cm; Reflux: 0 ms Mid Calf: Not seen Ankle: 0.1 cm; Reflux: 0 ms DUPLICATED LATERAL GREAT SAPHENOUS VEIN: Saphenofemoral Junction: 0.2 cm; Reflux: 0 ms Mid Thigh: 0.1 cm; Reflux: 0 ms SMALL SAPHENOUS VEIN: Saphenopopliteal Junction: 0.2 cm; Reflux: 0 ms Proximal: 0.1 cm; Reflux: 0 ms Distal: Not seen 3. DEEP VENOUS ULTRASOUND OF THE LEFT LOWER EXTREMITY: Common Femoral Vein: Compressible, normal respiratory variation and augmented flow. Femoral Vein: Compressible, normal color flow and augmentation. Popliteal Vein: Compressible, normal augmentation. Deep Reflux: There is no evidence of reflux in the deep system in either the common femoral vein, superficial femoral or the popliteal vein. There is no evidence of a Goff's cyst. 4. SUPERFICIAL ULTRASOUND WITH DOPPLER OF LEFT LOWER EXTREMITY: GREAT SAPHENOUS VEIN: Saphenofemoral Junction: 0.8 cm; Reflux: 0 ms Proximal Thigh: 0.2 cm; Reflux: 0 ms Mid Thigh: Not seen Above Knee: Not seen At Knee: Not seen Below Knee: 0.2 cm; Reflux: 0 ms Mid Calf: Not seen Ankle: 0.3 cm; Reflux: 0 ms DUPLICATED LATERAL GREAT SAPHENOUS VEIN: Saphenofemoral Junction: 0.3 cm; Reflux: 0 ms Mid Thigh: 0.1 cm; Reflux: 0 ms SMALL SAPHENOUS VEIN: Saphenopopliteal Junction: 0.1 cm; Reflux: 0 ms Proximal: 0.1 cm; Reflux: 0 ms Distal: 0.1 cm; Reflux: 0 ms US/US venous duplex LE BI IMPRESSION: 1. No evidence of deep venous thrombosis. 2. No significant venous insufficiency bilaterally.
== END 2023-08-09 08:21 | disposition home or self-care (01) ==
LOC: HO.US 08:20
PROVIDERS: PCP Internal Medicine; Visit Provider Surgery Vascular Surgery
DX: I83.11 Varicose veins of right lower extremity with inflammation (principal)
CPT/HCPCS: 93970

== ENCOUNTER 2023-08-17 07:48 | Outpatient (AMB) | payer OTHER, SELFPAY ==
[2023-08-17 07:51] VITALS: BP 132/79; PULSE 72; TEMP 36.2; BMI 45.0
--- NOTE | 2023-08-17 07:51 | MHC.OFFVIS ---
Vital Signs 08/17/23 07:51 Height 5 ft 2 in Weight 246 lb BMI 45.0 BP 132/79 Blood Pressure Location Rt brachial Position Sitting Pulse 72 Pulse Source Palpation Temp 97.2 F Temp Source Temporal Artery Scan Intake Visit Reasons: OA Allergies Seasonal Allergies Allergy (Severe, Verified 08/02/23 14:04) Difficulty Breathing Medication List - Last Reconciled 08/17/23 by Jere López MD albuterol sulfate 2.5 mg (3 mL) inhalation Q6H PRN 30 days albuterol sulfate 90 mcg/actuation 2 inhalations inhalation Q6H PRN 30 days budesonide-formoterol 160-4.5 mcg/actuation 2 puffs inhalation BID 90 days calcium carbonate (Oyster Shell Calcium) 500 mg PO BID 90 days cetirizine 10 mg PO DAILY PRN cholecalciferol (vitamin D3) 25 mcg PO DAILY 90 days cyclobenzaprine 5 mg PO BEDTIME PRN 30 days furosemide 20 mg PO DAILY PRN 30 days ibuprofen 400 - 800 mg (1 - 2 x 400 mg) PO BID lorazepam 0.5 mg PO DAILY PRN 30 days montelukast (Singulair) 10 mg PO BEDTIME 90 days nebulizers As directed semaglutide (weight loss) (Wegovy) 0.25 mg (0.5 mL) subcut QWEEK 28 days sertraline 50 mg PO DAILY 90 days tiotropium bromide 2.5 mcg/actuation (Spiriva Respimat) 2 puffs inhalation DAILY 30 days HPI Comments Details: Patient returns for follow-up. She was last seen by Dr. Hamilton 10/2022. Patient was started on hydroxychloroquine for presumed lupus around 2018. She took it for a few years until 2021. Her repeat ABNER was negative. And medication was stopped. States that she continues to get intermittent joint pain and swelling in different joints such as the elbows, wrists. However the most bothersome is her ankles which are persistently swollen, they get painful. She was recently evaluated by a vascular surgeon bilateral lower extremity venous duplex unremarkable. Takes ibuprofen daily but it does not help much Most recent history by Dr. Hamilton 10/2022: The patient returns for evaluation of her widespread pains. When I had last seen her she was having back pain and sciatica. That did seem to improve with the physical therapy. She has been complaining more recently of some left foot pain. Mostly this is in the lateral instep region. She does have a podiatry appointment coming up to evaluate that further. There was no local injury. She does take ibuprofen 400 mg once or twice a day when she has pains. She admits this is most days. 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 There also days she feels like she has pain all over. She can not really describe where this is worse but she feels almost immobilized by it. She tried some cyclobenzaprine at night and that is occasionally helpful but she does not rely on it. [facility] Medical History Morbid obesity Abnormal Pap smear of cervix Bronchitis Pleuritic chest pain Physical exam Venous insufficiency Osteopenia (~2019) Tubular adenoma of colon (~2016) Eosinophilia Chronic cough Vitamin D deficiency Vitamin B1 deficiency BMI 40.0-44.9, adult Cholelithiasis Right hip pain Abdominal bloating Lymphedema Asthma Lupus Hx of coronary artery disease Hx of systemic lupus erythematosus (SLE) History of asthma History of diastolic dysfunction Hx of varicose veins History of vitamin D deficiency Hx of hyperlipidemia Surgical History History of loop electrical excision procedure (LEEP) History of cardiac cath History of colonoscopy History of foot surgery History of hysteroscopy History of tubal ligation (~1992) History of ear surgery Family History Father Diabetes Cancer Colon cancer Paternal Grandfather Diabetes Maternal Aunt Cancer History of breast cancer Mother Sudden Sister Arthritis Rheumatoid arthritis Hypothyroidism Sister No problems noted. Sister No problems noted. Brother Diabetes Brother No problems noted. Son No problems noted. Daughter No problems noted. Daughter No problems noted. Daughter Lupus Social History Housing: House Alcohol intake: never Patient Tobacco Use Status: Never used Tobacco e-Cigarette/Vaping Use: Never Used Second Hand Smoke Exposure: No service: No Current occupational status: employed Current occupational exposures/hazards: No Sexual orientation: Straight/Heterosexual Gender identity: Female Cognitive needs: No Hearing needs: No Vision needs: Yes Review of Systems Musc Reports arthralgias and Reports joint swelling Physical Exam Const General: cooperative, healthy appearing and comfortable Nutritional Appearance: obese morbidly obese Orientation/consciousness: patient oriented x3 Limitations: no limitations HEENT Head: Yes normocephalic and Yes atraumatic Mouth: moist mucous membranes Resp Effort & Inspection: normal respiratory effort and able to speak in complete sentences Auscultation: clear to auscultation bilaterally Cardio Rate: regular rate Rhythm: regular rhythm Neuro General: patient oriented x3 Extrem Other: Bilateral ankle soft tissue swelling but no warmth, erythema or tenderness. Active synovitis both hands, wrists. Normal range of motion of hands, wrists, elbows and shoulders without pain Negative MTP tenderness Negative MTP squeeze test General: Yes pedal edema Assessment & Plan Assessment & Plan (1) ABNER positive: Code(s): R76.8 - Other specified abnormal immunological findings in serum Category: Medical Plan: This is a 53-year-old female previously diagnosed with lupus who presents for follow-up. Was diagnosed with lupus around 2018 and was on hydroxychloroquine until about 2021. This was based on positive ABNER, leukopenia and arthralgia Hydroxychloroquine was discontinued in 2021, she had a negative ABNER at that time. Patient continues to have intermittent joint pain and swelling. On exam today she does not have any active synovitis. She has chronic lower extremity soft tissue swelling, I do not believe this is active synovitis. However given her intermittent joint pains in other joints such as wrists, elbows, strong family history of RA. Her condition might be more consistent with undifferentiated connective tissue disease at that time. Start hydroxychloroquine 200 mg Twice daily. Re-evaluate in 3 months. 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 Advised patient to make an appointment with an manager flight operations Plan I spent 30 minutes reviewing patient's chart, evaluating patient, ordering diagnostic workup, counseling patient and documenting in the chart Orders: Orders Comprehensive Met. 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
== END 2023-08-17 08:14 | disposition home or self-care (01) ==
PROVIDERS: PCP Internal Medicine; Visit Provider Student in an Organized Health Care Education/Training Program
DX: R76.8 Other specified abnormal immunological findings in serum (principal); Z79.899 Other long term (current) drug therapy
CPT/HCPCS: 99214

== ENCOUNTER → 2023-08-17 07:48 | Outpatient (BNVA) | payer OTHER, SELFPAY | PROVIDERS: PCP Internal Medicine; Visit Provider Student in an Organized Health Care Education/Training Program | DX: R76.8 Other specified abnormal immunological findings in serum (principal); Z79.899 Other long term (current) drug therapy | CPT/HCPCS: 99212 ==

== ENCOUNTER 2023-08-22 15:24 | Outpatient (AMB) | payer OTHER, SELFPAY ==
--- NOTE | 2023-08-22 15:31 | A.OFFVIS_ITS ---
Vital Signs 08/22/23 15:34 Height 5 ft 2 in Weight 242 lb BMI 44.3 BP 128/78 Blood Pressure Location Lt brachial Position Sitting Respiration 16 Pulse 85 Pulse Source Pulse Oximeter Pulse Oximetry (%) 99 Oxygen Delivery Method Room Air Intake Visit Reasons: Asthma Allergies Seasonal Allergies Allergy (Severe, Verified 08/22/23 15:30) Difficulty Breathing HPI Comments Details: The patient is a 53-year-old woman with a known history of systemic lupus erythematous follow-up Rheumatology in addition to known allergies. Apparently patient was in the usual state health until back in April when she started developing a cough. The cough got worse. She was evaluated multiple times apparently and was given antibiotics in addition to prednisone. In May she did have a chest x-ray demonstrating a airspace disease in the right suprahilar area suggesting pneumonia. She was given additional antibiotics. At some point her methotrexate was stopped and she was given prednisone and further antibiotics. At this point her cough is got significantly better. Only mild now. She does complaint of dyspnea on exertion [id number] severity. She did have pulmonary function studies which were relatively normal. She also had an echocardiogram done demonstrating mild diastolic dysfunction. She also has lower extremity edema. She is on diuretics. 09/24/2022 the patient is here for pulmonary follow-up visit. Overall she is doing well on the current respiratory medications. She has been having issues with lower extremity edema. Further questions she also has daytime drowsiness. Her York score is elevated 11/24. The patient has been on diuretics for lower extremity edema. She is concerned because she does know why she is getting the swelling. We did talk about the importance of sodium intake and dietary discretion. The patient states that she does not consume sodium. A lthough it may be that she is taking it and foods that already contain it. In the meantime the patient has not started the diuretic as of yet. I did recommend that she started as per primary care recommendations. The patient will undergo an echocardiogram to further address for any evidence of any pulmonary hypertension or congestive heart failure. the patient will have her sleep study and echo will follow-up with Pulmonary to review the results. The patient will continue with current respiratory regimen and further recommendations based on forthcoming data. 02/22/2023 the patient is here for a pulmonary follow-up visit. Overall the patient continues to do well from a respiratory status. She continues with her Symbicort and she does use it twice a day. The patient also has been Singulair and Spiriva. She has not required any prednisone which is reassuring. We did review her echocardiogram demonstrating no evidence of any pulmonary hypertension. Ejection fraction is normal. She still working with her weight management. She is not interested in surgery. She would like medical weight management. I did give her some information about places to consider going in order to start therapy. She continues to have lower extremity edema. She does have prescription for Lasix. I did recommend she take only 1 tablet for 3 days and then stop it. She needs to continue with a low-sodium diet. Otherwise the patient is without any other complaints. Also to note the patient did have a home sleep study. Appears that she has mild sleep apnea. Mainly when laying on her back. She did not have any evidence of any sleep apnea when she later her side. Therefore she will try positional therapy right now. will follow-up in 6 months. If she continues to be symptomatic will consider CPAP therapy. 08/22/2023 the patient is here for pulmonary follow-up visit. Overall the patient has been doing well. She still can plans about her lower extremity edema. In addition to that she does have daytime drowsiness and elevated York score of 10/24. She did try positional therapy but she is still symptomatic. She did have sleep study back in March demonstrating mild obstructive sleep apnea along with the did have significant tachycardia and hypoxia. Will go ahead and start her on CPAP at this time specially since she is symptomatic and she does have increased cardiovascular risk factors. The patient also been having issue with the allergies. She does have some sinus congestion if started feeling some chest tightness. This use a nebulizer. At this point she may be okay although she may be developing a upper respiratory illness. If her symptoms worsen she gets more congested she can always start doxycycline. If her symptoms continued to persist develops worsening asthma symptoms he can also start prednisone taper. She is working on weight loss. She started on injectable therapy. The patient at this point will start CPAP therapy and will follow-up in the office in 3-4 months to review her response to therapy. [facility] Medical History Morbid obesity Abnormal Pap smear of cervix Bronchitis Pleuritic chest pain Physical exam Venous insufficiency Osteopenia (~2019) Tubular adenoma of colon (~2016) Eosinophilia Chronic cough Vitamin D deficiency Vitamin B1 deficiency BMI 40.0-44.9, adult Cholelithiasis Right hip pain Abdominal bloating Lymphedema Asthma Lupus Hx of coronary artery disease Hx of systemic lupus erythematosus (SLE) History of asthma History of diastolic dysfunction Hx of varicose veins History of vitamin D deficiency Hx of hyperlipidemia Surgical History History of loop electrical excision procedure (LEEP) History of cardiac cath History of colonoscopy History of foot surgery History of hysteroscopy History of tubal ligation (~1992) History of ear surgery Family History Father Diabetes Cancer Colon cancer Paternal Grandfather Diabetes Maternal Aunt Cancer History of breast cancer Mother Sudden Sister Arthritis Rheumatoid arthritis Hypothyroidism Sister No problems noted. Sister No problems noted. Brother Diabetes Brother No problems noted. Son No problems noted. Daughter No problems noted. Daughter No problems noted. Daughter Lupus Social History Housing: House Alcohol intake: never Patient Tobacco Use Status: Never used Tobacco e-Cigarette/Vaping Use: Never Used Second Hand Smoke Exposure: No service: No Current occupational status: employed Current occupational exposures/hazards: No Sexual orientation: Straight/Heterosexual Gender identity: Female Cognitive needs: No Hearing needs: No Vision needs: Yes Review of Systems Const Reports daytime sleepiness, Reports fatigue, Denies night sweats and Reports snoring ENT Denies change in voice, Denies lip swelling, Denies mouth pain, Reports nasal congestion, Reports nasal discharge, Reports sore throat and Denies tongue swelling Card Denies chest pain and Reports leg edema Resp Reports cough, Denies hemoptysis, Denies pain on inspiration, Denies pain with cough, Reports snoring and Reports wheezing GI Reports abdominal pain Musc Denies no additional complaints Neuro Denies Neuro-related abnormal movements Psych Denies no additional complaints Endo Reports fatigue Noel/Lymph Denies easy bleeding and Denies lymphadenopathy Aller/Immun Denies lip swelling, Denies tongue swelling and Reports wheezing Physical Exam Vital Signs: Last Vital Signs Pulse 85 08/22/23 15:34 Resp 16 08/22/23 15:34 BP 128/78 08/22/23 15:34 Pulse Ox 99 08/22/23 15:34 Oxygen Delivery Method Room Air 08/22/23 15:34 BMI result Body Mass Index 44.3 Const General: alert Orientation/consciousness: patient oriented x3 HEENT Head: Yes normal to inspection Eyes General: appearance normal, both eyes and all related structures Neck Neck: Yes normal visual inspection, Yes full ROM and Yes no lymphadenopathy Chest Chest palpation & inspection: normal inspection of the chest and no tenderness Breast/axilla inspection: normal inspection of the breasts (no puckering, dimpling, peau de orange, retraction, discharge, masses) Resp Effort & Inspection: normal respiratory effort Auscultation: no rales, no rhonchi, no wheezes and diminished lung sounds Cardio Rate: regular rate Rhythm: regular rhythm Heart sounds: S1 normal heart sound present and S2 normal heart sound present GI Inspection: Yes normal to inspection and Yes obesity Palpation (GI): Soft to palpation Auscultation: normal bowel sounds Rectal Exam - Female: deferred General: Yes bladder normal to palpation External Female Exam: normal external appearance and normal appearance of the urethra Speculum Exam - Vagina: normal appearance of the vagina, normal palpation and normal vaginal discharge Speculum Exam - Cervix: normal appearance of the cervix, normal palpation and Other cervical findings present (deep cervix. Bled with pap smear.post LEEP appearance) Bimanual exam- vagina & uterus: normal bimanual exam, normal palpation, uterine size normal, bladder normal to palpation and normal palpation Bimanual Exam- Adnexa, other: normal adnexae and no masses Skin General skin exam: rashes and/or lesions noted Neuro General: patient oriented x3 Cognition (Neuro): normal cognition Extrem General: Yes edema Psych Attitude: cooperative Thought process: Normal thought process present Assessment & Plan Assessment & Plan (1) Asthma: Code(s): J45.909 - Unspecified asthma, uncomplicated Category: Medical Qualifiers: Asthma complication type: uncomplicated Asthma persistence: persistent Asthma severity: moderate Qualified Code(s): J45.40 - Moderate persistent asthma, uncomplicated (2) Chronic cough: Code(s): R05.3 - Chronic cough Category: Medical (3) Eosinophilia: Code(s): D72.10 - Eosinophilia, unspecified Category: Medical Qualifiers: Eosinophilia type: other eosinophilia Qualified Code(s): D72.19 - Other eosinophilia (4) MARSHALL (obstructive sleep apnea): Code(s): G47.33 - Obstructive sleep apnea (adult) (pediatric) Category: Medical Plan Continue Symbicort continue Spiriva continue short-acting beta agonist as needed continue allergy medicine low-sodium diet start CPAP follow-up 6 months Medications: New doxycycline hyclate 100 mg PO BID 20 caps 0RF 10 days prednisone PO daily; Take 2 tabs daily x 5 days, then 1 tablet daily x 5 days 15 tabs 0RF 10 days Coding Level of Care Code Est Pt Level 4 (21293) Diagnoses Moderate persistent asthma without complication J45.40 Asthma complication type: uncomplicated Asthma persistence: persistent Asthma severity: moderate Chronic cough R05.3 Other eosinophilia D72.19 Eosinophilia type: other eosinophilia MARSHALL (obstructive sleep apnea) G47.33 Time Spent (min) 18
[2023-08-22 15:34] VITALS: BP 128/78; PULSE 85; RESP 16; O2SAT 99; BMI 44.3
== END 2023-08-22 15:55 | disposition home or self-care (01) ==
PROVIDERS: PCP Internal Medicine; Visit Provider Hospitalist
DX: J45.40 Moderate persistent asthma, uncomplicated (principal); R05.3 Chronic cough; D72.19 Other eosinophilia; G47.33 Obstructive sleep apnea (adult) (pediatric)
CPT/HCPCS: 99214

== ENCOUNTER → 2023-08-22 15:24 | Outpatient (BNVA) | payer OTHER, SELFPAY | PROVIDERS: PCP Internal Medicine; Visit Provider Hospitalist | DX: J45.40 Moderate persistent asthma, uncomplicated (principal); G47.33 Obstructive sleep apnea (adult) (pediatric); R05.3 Chronic cough; D72.19 Other eosinophilia | CPT/HCPCS: 99212 ==

== ENCOUNTER 2023-09-12 17:14 | Outpatient (AMB) | payer OTHER, SELFPAY ==
[2023-09-12 17:19] VITALS: BP 118/74; BMI 44.3
--- NOTE | 2023-09-12 17:19 | A.OFFPC_ITS ---
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 by: Self / Same As Patient Allergies Seasonal Allergies Allergy (Severe, Verified 09/12/23 17:34) Difficulty Breathing Medication List - Last Reconciled 09/12/23 by Karrie Morris MD albuterol sulfate 2.5 mg (3 mL) inhalation Q6H PRN 30 days albuterol sulfate 90 mcg/actuation 2 inhalations inhalation Q6H PRN 30 days budesonide-formoterol 160-4.5 mcg/actuation 2 puffs inhalation BID 90 days calcium carbonate (Oyster Shell Calcium) 500 mg PO BID 90 days cetirizine 10 mg PO DAILY PRN cholecalciferol (vitamin D3) 25 mcg PO DAILY 90 days cyclobenzaprine 5 mg PO BEDTIME PRN 30 days doxycycline hyclate 100 mg PO BID 10 days furosemide 20 mg PO DAILY PRN 30 days hydroxychloroquine 200 mg PO BID ibuprofen 400 - 800 mg (1 - 2 x 400 mg) PO BID lorazepam 0.5 mg PO DAILY PRN 30 days montelukast (Singulair) 10 mg PO BEDTIME 90 days nebulizers As directed semaglutide (weight loss) (Wegovy) 0.25 mg (0.5 mL) subcut QWEEK 28 days sertraline 50 mg PO DAILY 90 days tiotropium bromide 2.5 mcg/actuation (Spiriva Respimat) 2 puffs inhalation DAILY 30 days Tobacco use date assessed: 05/16/23 Dental Screening Dental Screen Date: 05/16/23 HPI HPI Comments History of Present Illness Details This is a 53-year-old female with mild recurrent major depression and morbid obesity that comes for her physical exam. Depression stable with sertraline. On Wegovy for her weight. Reports no side effects. Last mammogram was December 2022 and was normal. Bone density done 2022 showing osteopenia. Last colonoscopy was 2021 showing hyperplastic polyp and has family history of colon cancer in first-degree. 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 No chest pain or shortness of breath. [facility] Medical History (Updated 09/12/23 @ 17:52 by Karrie Morris MD) Physical exam Morbid obesity Abnormal Pap smear of cervix Bronchitis Pleuritic chest pain Venous insufficiency Osteopenia (~2019) Tubular adenoma of colon (~2016) Eosinophilia Chronic cough Vitamin D deficiency Vitamin B1 deficiency BMI 40.0-44.9, adult Cholelithiasis Right hip pain Abdominal bloating Lymphedema Asthma Lupus Hx of coronary artery disease Hx of systemic lupus erythematosus (SLE) History of asthma History of diastolic dysfunction Hx of varicose veins History of vitamin D deficiency Hx of hyperlipidemia Surgical History History of loop electrical excision procedure (LEEP) History of cardiac cath History of colonoscopy History of foot surgery History of hysteroscopy History of tubal ligation (~1992) History of ear surgery Family History Father Diabetes Cancer Colon cancer Paternal Grandfather Diabetes Maternal Aunt Cancer History of breast cancer Mother Sudden Sister Arthritis Rheumatoid arthritis Hypothyroidism Sister No problems noted. Sister No problems noted. Brother Diabetes Brother No problems noted. Son No problems noted. Daughter No problems noted. Daughter No problems noted. Daughter Lupus Social History Housing: House Alcohol intake: never Patient Tobacco Use Status: Never used Tobacco e-Cigarette/Vaping Use: Never Used Second Hand Smoke Exposure: No service: No Current occupational status: employed Current occupational exposures/hazards: No Sexual orientation: Straight/Heterosexual Gender identity: Female Cognitive needs: No Hearing needs: No Vision needs: Yes Questionnaire Thrive Questionnaire Date Thrive assessed: 05/16/23 JANELL-7 AMB Questionnaire JANELL-7 Date JANELL - 7 assessed: 05/16/23 Source: Developed by Drs. Geovany Meadows, Marcella Rodriguez, Chapo Newton and colleagues, with an educational karey from [employer]. Review of Systems Const All systems reviewed & are unremarkable except as noted in HPI and below Eyes Reports no additional complaints, Denies change in vision and Denies other visual disturbances Card Denies chest pain at rest, Denies chest pain with activity, Denies edema, Denies irregular heart rhythm, Denies claudication, Denies dyspnea, Denies dyspnea on exertion, Denies orthopnea, Denies paroxysmal nocturnal dyspnea and Denies slow heart rate Resp Denies cough, Denies dyspnea and Denies dyspnea on exertion GI Denies abdominal pain, Denies change in bowel habits, Denies excessive flatus, Denies nausea and Denies vomiting Denies urinary incontinence, Denies urinary hesitancy and Denies urinary urgency Musc Denies abnormal gait, Denies atrophy, Denies deformity and Denies limited range of motion Skin/Breast Denies bleeding lesions, Denies changing lesions and Denies rash Neuro Denies abnormal gait, Denies behavioral changes, Denies confusion and Denies lack of coordination Psych Denies behavioral changes and Denies confusion Physical exam (Primary Care) Vital Signs: Last Vital Signs BP 118/74 09/12/23 17:19 BMI result Body Mass Index 44.3 Tobacco/Smoking Status: Tobacco use Status Tobacco use date assessed 05/16/23 09/12/23 17:23 Patient Tobacco Use Status Never used Tobacco 09/12/23 17:23 e-Cigarette/Vaping Use Never Used 09/12/23 17:23 Thrive Assessment: Date of Thrive Assessment Date Thrive assessed 05/16/23 09/12/23 17:23 Const General: No confusion Orientation/consciousness: patient oriented x3 and No confusion HENMT Head: Yes normal to inspection, Yes normocephalic and Yes atraumatic Ears: external ears normal Eyes General: appearance normal, both eyes and all related structures Eyelids: Yes eyelids normal Conjunctivae: conjunctivae normal Neck Neck: Yes normal visual inspection and Yes supple Resp Effort & Inspection: normal respiratory effort Auscultation: clear to auscultation bilaterally Cardio Jugular venous distension: no JVD Rate: regular rate Rhythm: regular rhythm Heart sounds: S1 normal heart sound present and S2 normal heart sound present GI Inspection: Yes normal to inspection Palpation (GI): Soft to palpation and nontender Auscultation: normal bowel sounds Skin General skin exam: no rashes or lesions noted Neuro General: patient oriented x3, no focal motor deficits and No confusion Extrem General: Yes full ROM Psych Appearance: grossly normal Assessment and Plan Assessment & Plan (1) Physical exam: Code(s): Z00.00 - Encounter for general adult medical examination without abnormal findings Plan: Repeat in a year. (2) Morbid obesity: Code(s): E66.01 - Morbid (severe) obesity due to excess calories Plan: Continue Wegovy. Start diet and exercise. BMI goal is less than 30. Patient declines weight loss surgery. (3) Mild episode of recurrent major depressive disorder: Code(s): F33.0 - Major depressive disorder, recurrent, mild Plan: Continue sertraline. Follow-up with counseling. Orders: Orders Thyroid Stimulating Hormone Today E66.01 - Morbid (severe) obesity due to excess calories Vitamin D 25-OH Total Today E55.9 - Vitamin D deficiency, unspecified Lipid Panel Today E66.01 - Morbid (severe) obesity due to excess calories, E78.5 - Hyperlipidemia, unspecified Comprehensive [place]. Panel Fast Today E66.01 - Morbid (severe) obesity due to excess calories Medications: New semaglutide (weight loss) (Wegovy) administer weeks 5 through 8 of therapy 0.5 mg (0.5 mL) subcut QWEEK 4 weeks 2 mL 0RF ketorolac maximum total duration of 5 days from all oral, intranasal, or parenteral formulations 10 mg PO Q8H 10 days PRN 30 tabs 0RF pain Discontinued semaglutide (weight loss) (Wegovy) administer weeks 1 through 4 of therapy Discontinued Reason: Patient Completed Course 0.25 mg (0.5 mL) subcut QWEEK 28 days 2 mL 0RF E66.01 - Morbid (severe) obesity due to excess calories Coding Level of Care Code Est Pt Prev Care 40-64y(62388) Diagnoses Physical exam Z00.00 Morbid obesity E66.01 Mild episode of recurrent major depressive disorder F33.0 Time Spent (min) 31
== END 2023-09-12 17:54 | disposition home or self-care (01) ==
PROVIDERS: PCP Internal Medicine; Visit Provider Internal Medicine
DX: Z00.00 Encounter for general adult medical examination without abnormal findings (principal); E66.01 Morbid (severe) obesity due to excess calories; Z68.41 Body mass index [BMI] 40.0-44.9, adult; F33.0 Major depressive disorder, recurrent, mild
CPT/HCPCS: 99396

== ENCOUNTER 2023-11-07 07:26 | Outpatient (REF) | payer OTHER, SELFPAY ==
[2023-11-07 07:40] LABS: MANUAL DIFF FLAG NO
[2023-11-07 08:07] LABS: Basophils Absolute Auto 0.1 X10*3/uL (0.0-0.2); Basophils Percent Auto 0.6 % (0-2); Eosinophils Absolute Auto 0.2 X10*3/uL (0.0-0.4); Hemoglobin 12.8 g/dl (12.0-16.0); Imm Gran Abs Auto 0.03 X10*3/uL (0.00-0.03); Imm Gran Pct Auto 0.4 % (0.0-0.4); Lymphocytes Absolute Auto 1.8 X10*3/uL (1.2-4.9); Lymphocytes Percent Auto 23.4 % (20-40); Mean Corpuscular HGB Conc 32.8 g/dl (31.0-35.0); Mean Corpuscular Hemoglobin 27.8 pg (27.0-33.0); Mean Corpuscular Volume 84.8 fL (80.0-98.0); Mean Platelet Volume 12.8 fL (9.4-12.3); Monocytes Absolute Auto 0.4 X10*3/uL (0.1-1.2); Monocytes Percent Auto 4.5 % (2-11); Neutrophils Absolute Auto 5.3 x10*3/uL (2.0-8.3); Neutrophils Percent Auto 68.1 % (45-73); Platelet Count 176 X10*3/uL (160-400); Red Cell Distribution Width 15.6 % (11.0-16.0); White Blood Count 7.7 X10*3/uL (4.8-10.8)
[2023-11-07 08:36] LABS: Alanine Aminotransferase 13 U/L (0-31); Alkaline Phosphatase 108 U/L (39-117); Anion Gap 13 (12-20); Aspartate Amino Transferase 12 U/L (5-31); Bilirubin Total 0.4 mg/dL (0.0-1.0); Blood Urea Nitrogen 8 mg/dL (9-16); C Reactive Protein 2.54 mg/dL (< or = 0.50); Calcium 8.6 mg/dL (8.4-10.2); Carbon Dioxide 24 mmol/L (22-29); Chloride 109 mmol/L (96-108); Cholesterol 166 mg/dL (<200); Estimated Glomerular Filt Rate > 60; Glucose Fasting 86 mg/dL (60-99); Glucose Random 87 mg/dL (60-115); HDL Cholesterol 46 mg/dL (>40); LDL Cholesterol Calculated 104 mg/dL (<100); Potassium 3.9 mmol/L (3.3-5.1); Sodium 142 mmol/L (135-145); Total Protein 7.1 g/dL (6.5-8.0); Triglycerides 80 mg/dL (<150)
[2023-11-07 08:45] LABS: Erythrocyte Sedimentation Rate 24 MM/HR (0-20)
[2023-11-07 08:47] LABS: Vitamin D 25-OH Total 26.2 ng/mL (>30)
[2023-11-07 08:56] LABS: Thyroid Stimulating Hormone 3.25 uIU/mL (0.32-4.0)
== END 2023-11-07 07:27 | disposition home or self-care (01) ==
LOC: HO.LAB 07:26
PROVIDERS: PCP Internal Medicine; Visit Provider Student in an Organized Health Care Education/Training Program
DX: R76.8 Other specified abnormal immunological findings in serum (principal); E78.5 Hyperlipidemia, unspecified; E66.01 Morbid (severe) obesity due to excess calories; M47.816 Spondylosis without myelopathy or radiculopathy, lumbar region; E55.9 Vitamin D deficiency, unspecified
CPT/HCPCS: 36415; 80053; 80061; 82306; 84443; 85025; 85652; 86140

== ENCOUNTER 2023-11-16 07:26 | Outpatient (AMB) | payer OTHER, SELFPAY ==
--- NOTE | 2023-11-16 07:32 | MHC.OFFVIS ---
Vital Signs 11/16/23 07:38 Height 5 ft 2 in Weight 235 lb 10.786 oz BMI 43.1 BP 118/72 Blood Pressure Location Rt brachial Position Sitting Respiration 16 Pulse 71 Pulse Source Pulse Oximeter Pulse Oximetry (%) 98 Oxygen Delivery Method Room Air Intake Visit Reasons: UCTD/lm Intake Note: Patient presents for UCTD. Allergies Seasonal Allergies Allergy (Severe, Verified 11/16/23 07:37) Difficulty Breathing Medication List - Last Reconciled 11/16/23 by Jere López MD albuterol sulfate 2.5 mg (3 mL) inhalation Q6H PRN 30 days albuterol sulfate 90 mcg/actuation 2 inhalations inhalation Q6H PRN 30 days budesonide-formoterol 160-4.5 mcg/actuation 2 puffs inhalation BID 90 days calcium carbonate (Oyster Shell Calcium) 500 mg PO BID 90 days cetirizine 10 mg PO DAILY PRN cholecalciferol (vitamin D3) 25 mcg PO DAILY 90 days cyclobenzaprine 5 mg PO BEDTIME PRN 30 days doxycycline hyclate 100 mg PO BID 10 days furosemide 20 mg PO DAILY PRN 30 days hydroxychloroquine 200 mg PO BID ibuprofen 400 - 800 mg (1 - 2 x 400 mg) PO BID ketorolac 10 mg PO Q8H PRN 10 days lorazepam 0.5 mg PO DAILY PRN 30 days montelukast (Singulair) 10 mg PO BEDTIME 90 days nebulizers As directed semaglutide (weight loss) (Wegovy) 1 mg (0.5 mL) subcut Q7D 4 weeks sertraline 50 mg PO DAILY 90 days tiotropium bromide 2.5 mcg/actuation (Spiriva Respimat) 2 puffs inhalation DAILY 30 days HPI Comments Details: 53-year-old female with UCTD presents for follow-up. She has been taking the hydroxychloroquine 200 mg Twice daily regularly for the last 3 months. She states that she feels about 50% better overall. She still gets joint pains but joint pains do not last as long and pain is not as severe. Her joint pains are worse with humidity. Most recent history by Dr. Hamilton 10/2022: The patient returns for evaluation of her widespread pains. When I had last seen her she was having back pain and sciatica. That did seem to improve with the physical therapy. She has been complaining more recently of some left foot pain. Mostly this is in the lateral instep region. She does have a podiatry appointment coming up to evaluate that further. There was no local injury. She does take ibuprofen 400 mg once or twice a day when she has pains. She admits this is most days. 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 There also days she feels like she has pain all over. She can not really describe where this is worse but she feels almost immobilized by it. She tried some cyclobenzaprine at night and that is occasionally helpful but she does not rely on it. [facility] Medical History Physical exam Morbid obesity Abnormal Pap smear of cervix Bronchitis Pleuritic chest pain Venous insufficiency Osteopenia (~2019) Tubular adenoma of colon (~2016) Eosinophilia Chronic cough Vitamin D deficiency Vitamin B1 deficiency BMI 40.0-44.9, adult Cholelithiasis Right hip pain Abdominal bloating Lymphedema Asthma Lupus Hx of coronary artery disease History of asthma History of diastolic dysfunction Hx of varicose veins History of vitamin D deficiency Hx of hyperlipidemia Surgical History History of loop electrical excision procedure (LEEP) History of cardiac cath History of colonoscopy History of foot surgery History of hysteroscopy History of tubal ligation (~1992) History of ear surgery Family History Father Diabetes Cancer Colon cancer Paternal Grandfather Diabetes Maternal Aunt Cancer History of breast cancer Mother Sudden Sister Rheumatoid arthritis Hypothyroidism Sister Rheumatoid arthritis Sister No problems noted. Brother Diabetes Brother No problems noted. Son No problems noted. Daughter No problems noted. Daughter No problems noted. Daughter Lupus Social History Housing: House Alcohol intake: never Patient Tobacco Use Status: Never used Tobacco e-Cigarette/Vaping Use: Never Used Second Hand Smoke Exposure: No service: No Current occupational status: employed Current occupational exposures/hazards: No Sexual orientation: Straight/Heterosexual Gender identity: Female Cognitive needs: No Hearing needs: No Vision needs: Yes Female Reproductive History Menstrual control method: permanent sterilization Permanent Sterilization: BTL Total pregnancies: 4 Full term: 4 Number of Living Children: 4 Date of last pap smear: 01/20/22 (+hpv, colpo 03/16 evens 1) History of abnormal pap smear: Yes (see intake note) Date of Mammogram: 12/24/22 (Birad 2) Review of Systems [facility] [place] Reports arthralgias Physical Exam Vital Signs: Last Vital Signs Pulse 71 11/16/23 07:38 Resp 16 11/16/23 07:38 BP 118/72 11/16/23 07:38 Pulse Ox 98 11/16/23 07:38 Oxygen Delivery Method Room Air 11/16/23 07:38 BMI result Body Mass Index 43.1 Const General: cooperative, healthy appearing and comfortable Nutritional Appearance: obese morbidly obese Orientation/consciousness: patient oriented x3 Limitations: no limitations HEENT Head: Yes normocephalic and Yes atraumatic Mouth: moist mucous membranes Resp Effort & Inspection: normal respiratory effort and able to speak in complete sentences Auscultation: clear to auscultation bilaterally Cardio Rate: regular rate Rhythm: regular rhythm Neuro General: patient oriented x3 Extrem Other: Bilateral ankle soft tissue swelling but no warmth, erythema or tenderness. No Active synovitis both hands, wrists. Normal range of motion of hands, wrists, elbows and shoulders without pain Normal nailfold capillaroscopy Negative MTP tenderness Negative MTP squeeze test General: Yes pedal edema Assessment & Plan Assessment & Plan (1) Undifferentiated connective tissue disease: Comment: dx Lupus 2019 (+ABNER, leukopenia, arthralgia) HCQ from 2018 to 2021. Repeat ABNER -ve 2021 HCQ restarted 07/2023 Code(s): M35.9 - Systemic involvement of connective tissue, unspecified Category: Medical Plan: This is a 53-year-old female with UCTD who presents for follow-up. She is on hydroxychloroquine 200 mg Twice daily. She states that she feels about 50% improvement overall. On exam I do not see any active synovitis. Patient has chronically elevated CRP which may be normal for her weight. Continue with hydroxychloroquine 200 mg Twice daily Of note patient has 2 sisters, 1 with seropositive erosive RA and another with seronegative RA. 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 Advised patient to make an appointment with an clerical warehouse worker Plan I spent 22 minutes reviewing patient's chart, evaluating patient, ordering diagnostic workup, counseling patient and documenting in the chart Orders: Orders C Reactive Protein 6 Months M35.9 - Systemic involvement of connective tissue, unspecified Complete Blood Count Auto Diff 6 Months M35.9 - Systemic involvement of connective tissue, unspecified Comprehensive Met. Panel 6 Months M35.9 - Systemic involvement of connective tissue, unspecified Erythrocyte Sedimentation Rate 6 Months M35.9 - Systemic involvement of connective tissue, unspecified Medications: Refilled hydroxychloroquine 200 mg PO BID 180 tabs 1RF Coding Level of Care Code Est Pt Level 4 (86948) Diagnoses Undifferentiated connective tissue disease M35.9 terminal operator use of drug Z79.899
[2023-11-16 07:38] VITALS: BP 118/72; PULSE 71; RESP 16; O2SAT 98; BMI 43.1
== END 2023-11-16 07:54 | disposition home or self-care (01) ==
PROVIDERS: PCP Internal Medicine; Visit Provider Student in an Organized Health Care Education/Training Program
DX: M35.89 Other specified systemic involvement of connective tissue (principal); Z79.899 Other long term (current) drug therapy
CPT/HCPCS: 99214

== ENCOUNTER → 2023-11-16 07:26 | Outpatient (BNVA) | payer OTHER, SELFPAY | PROVIDERS: PCP Internal Medicine; Visit Provider Student in an Organized Health Care Education/Training Program | DX: M35.9 Systemic involvement of connective tissue, unspecified (principal); Z79.899 Other long term (current) drug therapy | CPT/HCPCS: 99212 ==

== ENCOUNTER 2023-12-01 14:41 | Outpatient (AMB) | payer OTHER, SELFPAY ==
--- NOTE | 2023-12-01 14:53 | MHC.OFFVIS ---
Intake Visit Reasons: F/u s/p US 08/08 Intake Note: Patient presents for US follow up. She states both legs have been swelling with pain but that the right leg is worse. Her feet feel like they are burning . Accompanied by: Self / Same As Patient Allergies Seasonal Allergies Allergy (Severe, Verified 12/01/23 14:56) Difficulty Breathing HPI HPI F/u s/p US 08/08: Details: Very pleasant 53-year-old female presents for follow-up regarding venous insufficiency. She has swelling and changes in bilateral lower extremities. She actually had prior venous ablation by Dr. Lema in 2012 and 2019. She now presents for follow-up with venous insufficiency testing. She continues to complain of swelling more so on the foot and calf. She is now for follow-up. [facility] Medical History (Updated 12/01/23 @ 15:24 by Bill Becker MD) Lymphedema Physical exam Morbid obesity Abnormal Pap smear of cervix Bronchitis Pleuritic chest pain Venous insufficiency Osteopenia (~2019) Tubular adenoma of colon (~2016) Eosinophilia Chronic cough Vitamin D deficiency Vitamin B1 deficiency BMI 40.0-44.9, adult Cholelithiasis Right hip pain Abdominal bloating Asthma Lupus Hx of coronary artery disease History of asthma History of diastolic dysfunction Hx of varicose veins History of vitamin D deficiency Hx of hyperlipidemia Surgical History History of loop electrical excision procedure (LEEP) History of cardiac cath History of colonoscopy History of foot surgery History of hysteroscopy History of tubal ligation (~1992) History of ear surgery Family History Father Diabetes Cancer Colon cancer Paternal Grandfather Diabetes Maternal Aunt Cancer History of breast cancer Mother Sudden Sister Rheumatoid arthritis Hypothyroidism Sister Rheumatoid arthritis Sister No problems noted. Brother Diabetes Brother No problems noted. Son No problems noted. Daughter No problems noted. Daughter No problems noted. Daughter Lupus Social History Housing: House Alcohol intake: never Patient Tobacco Use Status: Never used Tobacco e-Cigarette/Vaping Use: Never Used Second Hand Smoke Exposure: No service: No Current occupational status: employed Current occupational exposures/hazards: No Sexual orientation: Straight/Heterosexual Gender identity: Female Cognitive needs: No Hearing needs: No Vision needs: Yes Review of Systems Const Reports as per HPI ENT Reports no additional complaints Card Denies chest pain, Denies chest pain at rest and Denies chest pain with activity Resp Denies chest congestion and Denies cough GI Reports no additional complaints Musc Details: pain over varicosities, aching of lower extremities, swelling, cramping, heaviness and tiredness, itching Denies abnormal gait Skin/Breast Reports pruritus and Denies wounds Neuro Reports no additional complaints and Denies abnormal gait Psych Denies no additional complaints Physical Exam Const General: cooperative, healthy appearing and comfortable Orientation/consciousness: oriented to person, oriented to place and oriented to time Neck Carotids: no bruits Chest Chest palpation & inspection: normal inspection of the chest and normal palpation of entire chest wall Resp Effort & Inspection: normal respiratory effort and able to speak in complete sentences Cardio Rate: regular rate Heart sounds: S1 normal heart sound present and S2 normal heart sound present Peripheral pulses: Peripheral pulses 2+ throughout GI Inspection: Yes normal to inspection Skin Other: +2 edema, CEAP Classification C4 - skin color changes Ep - Etiology Primary As - superficial veins P - reflux General skin exam: dry skin Neuro General: oriented to person, oriented to place and oriented to time Extrem Other: Right in cm: Thigh 63.5 Knee 46 Calf 49 Ankle 31 Left in cm: Thigh 61 Knee 46 Calf 50.5 Ankle 31.5 Hip/waist 123 Right lower extremity: full ROM, normal capillary refill and edema Left lower extremity: full ROM, normal capillary refill and edema Psych Mental Status: mental status grossly normal Results Reviewed Results Reviewed: Brief summary of venous insufficiency testing is as follows: right great saphenous vein: negative right small saphenous vein: negative right accessory vein: none present left great saphenous vein: negative left small saphenous vein: negative left accessory vein: none present Please note there is no evidence of any venous aneurysms or significant tortuosity Assessment & Plan Assessment & Plan (1) Varicose veins of right lower extremity with inflammation: Code(s): I83.11 - Varicose veins of right lower extremity with inflammation Category: Medical Plan: In short patient is negative for any significant venous insufficiency. We will treat her for lymphedema. (2) Lymphedema: Code(s): I89.0 - Lymphedema, not elsewhere classified Category: Medical Plan: In short the patient has late on sent lymphedema. The patient has been on conservative treatment for at least 3 months with minimal relief. Patient has tried 30 mm of mercury compression garments, elevation, exercise healthy diet and doing manual says self MLD to the best of their ability for over 4 weeks but with no significant relief. She has been compliant with the program but has provided minimal relief. In addition on physical we are noticing hyperpigmentation, lymphorrhea, and hyperplasia. It appears that she has stage 2 lymphedema. Patient has completed multiple forms of conservative therapy yet significant symptoms remain. Patient requires the use of a pneumatic compression device which we will assist in trying to have the patient obtain them. A pneumatic compression device will help reduce swelling and other lymphedema comorbidities. Thank you for allowing us to assist in this patient's care. Coding Level of Care Code Est Pt Level 4 (13740) Diagnoses Varicose veins of right lower extremity with inflammation I83.11 Lymphedema I89.0
== END 2023-12-01 15:11 | disposition home or self-care (01) ==
PROVIDERS: PCP Internal Medicine; Visit Provider Surgery Vascular Surgery
DX: I83.11 Varicose veins of right lower extremity with inflammation (principal); I89.0 Lymphedema, not elsewhere classified
CPT/HCPCS: 99214

== ENCOUNTER → 2023-12-01 14:41 | Outpatient (BNVA) | payer OTHER, SELFPAY | PROVIDERS: PCP Internal Medicine; Visit Provider Surgery Vascular Surgery | DX: I83.11 Varicose veins of right lower extremity with inflammation (principal); I89.0 Lymphedema, not elsewhere classified | CPT/HCPCS: 99212 ==

== ENCOUNTER 2023-12-22 14:11 | Outpatient (AMB) | payer OTHER, SELFPAY ==
--- NOTE | 2023-12-22 14:11 | A.OFFVIS_ITS ---
Vital Signs 12/22/23 14:12 Height 5 ft 2 in Weight 240 lb BMI 43.9 Intake Visit Reasons: Covid +/Asthma Dough Cutter Required: No Allergies Seasonal Allergies Allergy (Severe, Verified 12/22/23 14:12) Difficulty Breathing HPI Comments Details: The patient is a 53-year-old woman with a known history of systemic lupus erythematous follow-up Rheumatology in addition to known allergies. Apparently patient was in the usual state health until back in April when she started developing a cough. The cough got worse. She was evaluated multiple times apparently and was given antibiotics in addition to prednisone. In May she did have a chest x-ray demonstrating a airspace disease in the right suprahilar area suggesting pneumonia. She was given additional antibiotics. At some point her methotrexate was stopped and she was given prednisone and further antibiotics. At this point her cough is got significantly better. Only mild now. She does complaint of dyspnea on exertion [id number] severity. She did have pulmonary function studies which were relatively normal. She also had an ec hocardiogram done demonstrating mild diastolic dysfunction. She also has lower extremity edema. She is on diuretics. 08/22/2023 the patient is here for pulmonary follow-up visit. Overall the patient has been doing well. She still can plans about her lower extremity edema. In addition to that she does have daytime drowsiness and elevated [place] score of 10/24. She did try positional therapy but she is still symptomatic. She did have sleep study back in March demonstrating mild obstructive sleep apnea along with the did have significant tachycardia and hypoxia. Will go ahead and start her on CPAP at this time specially since she is symptomatic and she does have increased cardiovascular risk factors. The patient also been having issue with the allergies. She does have some sinus c ongestion if started feeling some chest tightness. This use a nebulizer. At this point she may be okay although she may be developing a upper respiratory illness. If her symptoms worsen she gets more congested she can always start doxycycline. If her symptoms continued to persist develops worsening asthma symptoms he can also start prednisone taper. She is working on weight loss. She started on injectable therapy. The patient at this point will start CPAP therapy and will follow-up in the office in 3-4 months to review her response to therapy. 12/22/2023 the patient has a telehealth visit today. Her daughter is positive for COVID. She is starting to develop some symptoms and she stayed home. She will be testing for COVID in a little bit. We did go over the instructions on how to do a properly in order to give her higher yield than the results. In the meantime she is positive she will start Paxlovid for 5 days. The patient has been using her respiratory therapy. For some reason she has not been able to get his Spiriva. I will send her Incruse instead. Also she will continue with the allergy medicines and she is having more allergy symptoms this time. The patient has been tolerating the singular at nighttime. For some reason she has not been able to get the Zyrtec. I will resend that is the pharmacy. The patient is still waiting for the CPAP. She continues have daytime drowsiness. Her [place] score is elevated 10/24. And she also had a abnormal sleep study. We did request her starting CPAP months ago but she has not heard anything as of yet. Therefore we will send a prescription this time. The patient should bring her CPAP to the next visit. [facility] Medical History (Updated 12/22/23 @ 21:41 by Hal Banuelos MD) Lymphedema Physical exam Morbid obesity Abnormal Pap smear of cervix Bronchitis Pleuritic chest pain Venous insufficiency Osteopenia (~2019) Tubular adenoma of colon (~2016) Eosinophilia Chronic cough Vitamin D deficiency Vitamin B1 deficiency BMI 40.0-44.9, adult Cholelithiasis Right hip pain Abdominal bloating Asthma Lupus Hx of coronary artery disease History of asthma History of diastolic dysfunction Hx of varicose veins History of vitamin D deficiency Hx of hyperlipidemia Surgical History History of loop electrical excision procedure (LEEP) History of cardiac cath History of colonoscopy History of foot surgery History of hysteroscopy History of tubal ligation (~1992) History of ear surgery Family History Father Diabetes Cancer Colon cancer Paternal Grandfather Diabetes Maternal Aunt Cancer History of breast cancer Mother Sudden Sister Rheumatoid arthritis Hypothyroidism Sister Rheumatoid arthritis Sister No problems noted. Brother Diabetes Brother No problems noted. Son No problems noted. Daughter No problems noted. Daughter No problems noted. Daughter Lupus Social History Housing: House Alcohol intake: never Patient Tobacco Use Status: Never used Tobacco e-Cigarette/Vaping Use: Never Used Second Hand Smoke Exposure: No service: No Current occupational status: employed Current occupational exposures/hazards: No Sexual orientation: Straight/Heterosexual Gender identity: Female Cognitive needs: No Hearing needs: No Vision needs: Yes Review of Systems Const Reports daytime sleepiness, Reports fatigue, Denies night sweats and Reports snoring ENT Denies change in voice, Denies lip swelling, Denies mouth pain, Reports nasal congestion, Reports nasal discharge, Reports sore throat and Denies tongue swelling Card Denies chest pain and Reports leg edema Resp Reports cough, Denies hemoptysis, Denies pain on inspiration, Denies pain with cough, Reports snoring and Reports wheezing GI Reports abdominal pain Musc Denies no additional complaints Neuro Denies Neuro-related abnormal movements Psych Denies no additional complaints Endo Reports fatigue Noel/Lymph Denies easy bleeding and Denies lymphadenopathy Aller/Immun Denies lip swelling, Denies tongue swelling and Reports wheezing Physical Exam Vital Signs: BMI result Body Mass Index 43.9 Const General: comfortable Orientation/consciousness: patient oriented x3 Resp Effort & Inspection: normal respiratory effort and able to speak in complete sentences Neuro General: patient oriented x3 Telehealth Telehealth Telehealth Platform: Telephone Location of provider rendering services: practice address Location of patient: address on file Patient Identification confirmed using: Name, : Yes Telehealth method: voice only Patient verbally consented to treatment: Yes Patient verbally consented to billing insurance company: Yes Patient informed of any privacy concerns related to visit: Yes Assessment & Plan Assessment & Plan (1) Asthma: Code(s): J45.909 - Unspecified asthma, uncomplicated Category: Medical Qualifiers: Asthma complication type: uncomplicated Asthma persistence: persistent Asthma severity: moderate Qualified Code(s): J45.40 - Moderate persistent asthma, uncomplicated (2) Chronic cough: Code(s): R05.3 - Chronic cough Category: Medical (3) Eosinophilia: Code(s): D72.10 - Eosinophilia, unspecified Category: Medical Qualifiers: Eosinophilia type: other eosinophilia Qualified Code(s): D72.19 - Other eosinophilia (4) MARSHALL (obstructive sleep apnea): Code(s): G47.33 - Obstructive sleep apnea (adult) (pediatric) Category: Medical (5) Exposure to COVID-19 virus: Code(s): Z20.822 - Contact with and (suspected) exposure to COVID-19 Category: Medical Plan Continue Symbicort stopped Spiriva due to insurance start Incruse Covid testing, if positive start Paxlovid short-acting beta agonist as needed continue allergy medicine low-sodium diet start CPAP follow-up 4- 6 months Medications: New umeclidinium 62.5 mcg/actuation (Incruse Ellipta) 1 inh inhalation DAILY 30 ea 11RF 30 days J45.909 - Unspecified asthma, uncomplicated nirmatrelvir-ritonavir 300 mg (150 mg x 2)-100 mg (Paxlovid) take TWO 150 mg tablets of nirmatrelvir with ONE 100 mg tablet of ritonavir twice daily for 5 days PO 30 ea 0RF 5 days Changed From cetirizine 10 mg PO DAILY PRN 14 tabs 0RF for allergies To cetirizine 10 mg PO DAILY 30 tabs 6RF 30 days Coding Level of Care Code Tele New Pt Level 4 (50741) Diagnoses Moderate persistent asthma without complication J45.40 Asthma complication type: uncomplicated Asthma persistence: persistent Asthma severity: moderate Chronic cough R05.3 Other eosinophilia D72.19 Eosinophilia type: other eosinophilia MARSHALL (obstructive sleep apnea) G47.33 Exposure to COVID-19 virus Z20.822 Time Spent (min) 15
[2023-12-22 14:12] VITALS: BMI 43.9
== END 2023-12-22 14:21 | disposition home or self-care (01) ==
LOC: HO.HPS 14:11
PROVIDERS: PCP Internal Medicine; Visit Provider Hospitalist
DX: J45.40 Moderate persistent asthma, uncomplicated (principal); D72.19 Other eosinophilia; G47.33 Obstructive sleep apnea (adult) (pediatric); Z20.822 Contact with and (suspected) exposure to COVID-19
CPT/HCPCS: 99214

== ENCOUNTER → 2023-12-22 14:11 | Outpatient (BNVA) | payer OTHER, SELFPAY | PROVIDERS: PCP Internal Medicine; Visit Provider Hospitalist ==

== ENCOUNTER 2023-12-30 11:54 | Outpatient (REF) | payer OTHER, SELFPAY ==
--- NOTE | ~2023-12-30 | MM_ITS ---
EXAMINATION: MM SCREENING DIGITAL BREAST TOMOSYNTHESIS, BILATERAL CLINICAL INFORMATION: Screening. Asymptomatic. COMPARISON: Mammography: Comparison is made with available priors TECHNIQUE: Digital breast mammography with tomosynthesis is performed in both the craniocaudal and mediolateral oblique views along with computer-aided detection (CAD). FINDINGS: The breasts are heterogeneously dense, which may obscure small masses (ACR BI-RADS breast composition Category c). There are no significant masses, abnormal calcifications, or other abnormalities. MM/MM tomosynthesis screening BI IMPRESSION: No mammographic evidence of malignancy. ASSESSMENT: BI-RADS BI-RADS 1 - Negative RECOMMENDATION: Routine annual mammography screening. 1 year F/U This examination should not preclude the clinical evaluation of a suspicious palpable abnormality. This patient's information was entered into a reminder system with a target due date for their next mammogram. Electronically signed by: Anita Hein DO 01/15/2024 06:41 PM EDT
== END 2023-12-30 11:55 | disposition home or self-care (01) ==
LOC: HO.MAMMO 11:54
PROVIDERS: PCP Internal Medicine; Visit Provider Internal Medicine
DX: Z12.31 Encounter for screening mammogram for malignant neoplasm of breast (principal)
CPT/HCPCS: 77063; 77067

== ENCOUNTER → 2023-12-30 12:00 | Outpatient (BNV) | payer OTHER, SELFPAY | PROVIDERS: PCP Internal Medicine; Visit Provider Internal Medicine | DX: Z12.31 Encounter for screening mammogram for malignant neoplasm of breast (principal) | CPT/HCPCS: 77063; 77067 ==

== ENCOUNTER → 2024-01-02 14:19 | Outpatient (BNVA) | payer OTHER, SELFPAY | PROVIDERS: PCP Internal Medicine; Visit Provider Surgery Vascular Surgery ==

== ENCOUNTER 2024-02-21 08:45 | Outpatient (AMB) | payer OTHER, SELFPAY ==
[2024-02-21 08:49] VITALS: BP 122/80; PULSE 70; O2SAT 98; BMI 44.6
--- NOTE | 2024-02-21 08:49 | A.OFFPC_ITS ---
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: No Accompanied by: Self / Same As Patient Allergies Seasonal Allergies Allergy (Severe, Verified 02/21/24 09:00) Difficulty Breathing Medication List - Last Reconciled 02/21/24 by Karrie Morris MD albuterol sulfate 2.5 mg (3 mL) inhalation Q6H PRN 30 days albuterol sulfate 90 mcg/actuation 2 inhalations inhalation Q6H PRN 30 days budesonide-formoterol 160-4.5 mcg/actuation 2 puffs inhalation BID 90 days calcium carbonate (Oyster Shell Calcium) 500 mg PO BID 90 days cetirizine 10 mg PO DAILY 30 days cholecalciferol (vitamin D3) 25 mcg PO DAILY 90 days cyclobenzaprine 5 mg PO BEDTIME PRN 30 days furosemide 20 mg PO DAILY PRN 90 days hydroxychloroquine 200 mg PO BID ibuprofen 400 - 800 mg (1 - 2 x 400 mg) PO BID ketorolac 10 mg PO Q8H PRN 10 days montelukast (Singulair) 10 mg PO BEDTIME 90 days nebulizers As directed tiotropium bromide 2.5 mcg/actuation (Spiriva Respimat) 2 puffs inhalation DAILY 30 days umeclidinium 62.5 mcg/actuation (Incruse Ellipta) 1 inh inhalation DAILY 30 days Tobacco use date assessed: 05/16/23 Dental Screening Dental Screen Date: 05/16/23 HPI HPI Comments History of Present Illness Details This is a 54-year-old female with mild recurrent major depression, morbid obesity and undifferentiated connective tissue disease that comes today for preop evaluation for bilateral upper blepharoplasty scheduled for 03/08/2024. She denies any chest pain or shortness on breath. Depression stable. Morbidly obese with a BMI of 44 point and I will start her on Zepbdound. On hydroxychloroquine for her undifferentiated connective tissue disease follow by Rheumatology. Has 5-7 Mets of ADLs. EKG and labs are pending for medical clearance. [facility] Medical History (Updated 02/13/24 @ 14:26 by Karrie Morris MD) Lymphedema Physical exam Morbid obesity Abnormal Pap smear of cervix Bronchitis Pleuritic chest pain Venous insufficiency Osteopenia (~2019) Tubular adenoma of colon (~2016) Eosinophilia Chronic cough Vitamin D deficiency Vitamin B1 deficiency BMI 40.0-44.9, adult Cholelithiasis Right hip pain Abdominal bloating Asthma Lupus Hx of coronary artery disease History of asthma History of diastolic dysfunction Hx of varicose veins History of vitamin D deficiency Hx of hyperlipidemia Surgical History History of loop electrical excision procedure (LEEP) History of cardiac cath History of colonoscopy History of foot surgery History of hysteroscopy History of tubal ligation (~1992) History of ear surgery Family History Father Diabetes Cancer Colon cancer Paternal Grandfather Diabetes Maternal Aunt Cancer History of breast cancer Mother Sudden Sister Rheumatoid arthritis Hypothyroidism Sister Rheumatoid arthritis Sister No problems noted. Brother Diabetes Brother No problems noted. Son No problems noted. Daughter No problems noted. Daughter No problems noted. Daughter Lupus Social History Housing: House Alcohol intake: never Patient Tobacco Use Status: Never used Tobacco e-Cigarette/Vaping Use: Never Used Second Hand Smoke Exposure: No service: No Current occupational status: employed Current occupational exposures/hazards: No Sexual orientation: Straight/Heterosexual Gender identity: Female Cognitive needs: No Hearing needs: No Vision needs: Yes Questionnaire Thrive Questionnaire Date Thrive assessed: 05/16/23 JANELL-7 AMB Questionnaire JANELL-7 Date JANELL - 7 assessed: 05/16/23 Source: Developed by Drs. Geovany Meadows, Marcella Rodriguez, Chapo Newton and colleagues, with an educational karey from [employer]. Review of Systems Const All systems reviewed & are unremarkable except as noted in HPI and below Card Denies chest pain at rest, Denies chest pain with activity, Denies edema, Denies irregular heart rhythm, Denies claudication, Denies dyspnea, Denies dyspnea on exertion, Denies orthopnea, Denies paroxysmal nocturnal dyspnea and Denies slow heart rate Resp Denies cough, Denies dyspnea and Denies dyspnea on exertion Neuro Denies lack of coordination Physical exam (Primary Care) Vital Signs: Last Vital Signs Pulse 70 02/21/24 08:49 BP 122/80 02/21/24 08:49 Pulse Ox 98 02/21/24 08:49 Oxygen Delivery Method Room Air 02/21/24 08:49 BMI result Body Mass Index 44.6 BMI Assessment/Plan discussion: High BMI High, discussed plan: lifestyle, weight reduction, dietary and physical activity Tobacco/Smoking Status: Tobacco use Status Tobacco use date assessed 05/16/23 02/21/24 08:56 Patient Tobacco Use Status Never used Tobacco 02/21/24 08:56 e-Cigarette/Vaping Use Never Used 02/21/24 08:56 Thrive Assessment: Date of Thrive Assessment Date Thrive assessed 05/16/23 02/21/24 08:56 Resp Effort & Inspection: normal respiratory effort Auscultation: clear to auscultation bilaterally Cardio Jugular venous distension: no JVD Rate: regular rate Rhythm: regular rhythm Heart sounds: S1 normal heart sound present and S2 normal heart sound present Extrem General: Yes full ROM Coding Level of Care Code Est Pt Level 4 (00142) Complex EM visit Add On G2211 Diagnoses Pre-op evaluation Z01.818 Undifferentiated connective tissue disease M35.9 Morbid obesity E66.01 Mild episode of recurrent major depressive disorder F33.0 Time Spent (min) 22 Assessment & Plan Assessment & Plan (1) Pre-op evaluation: Code(s): Z01.818 - Encounter for other preprocedural examination Category: Medical Plan: EKG and labs pending for medical clearance. (2) Undifferentiated connective tissue disease: Comment: dx Lupus 2019 (+KARRIE, leukopenia, arthralgia) HCQ from 2018 to 2021. Repeat KARRIE - ve 2021 HCQ restarted 07/2023 Code(s): M35.9 - Systemic involvement of connective tissue, unspecified Category: Medical Plan: Continue hydroxychloroquine. (3) Morbid obesity: Code(s): E66.01 - Morbid (severe) obesity due to excess calories Category: Medical Plan: Start Zepbound. BMI goal is less than 30. Advised to start diet and exercise. (4) Mild episode of recurrent major depressive disorder: Code(s): F33.0 - Major depressive disorder, recurrent, mild Category: Medical Plan: Stable with no medications. Orders: Orders ECG 12 lead EKG Today Z01.818 - Encounter for other preprocedural examination Lipid Panel Today E78.5 - Hyperlipidemia, unspecified Comprehensive [place]. Panel Fast Today Z01.818 - Encounter for other preprocedural examination Vitamin D 25-OH Total Today E55.9 - Vitamin D deficiency, unspecified Vitamin B12 and Folate Today E53.8 - Deficiency of other specified B group vitamins Complete Blood Count Auto Diff Today M35.9 - Systemic involvement of connective tissue, unspecified Medications: New tirzepatide (weight loss) (Zepbound) for 4 weeks 2.5 mg (0.5 mL) subcut QWEEK 2 mL 0RF 4 weeks E66.01 - Morbid (severe) obesity due to excess calories sertaconazole 2% (Ertaczo) 1 appl topical BID 60 grams 0RF 30 days
== END 2024-02-21 09:09 | disposition home or self-care (01) ==
LOC: HO.HMCH 08:45
PROVIDERS: PCP Internal Medicine; Visit Provider Internal Medicine
DX: M35.9 Systemic involvement of connective tissue, unspecified (principal); E66.01 Morbid (severe) obesity due to excess calories; F33.0 Major depressive disorder, recurrent, mild; Z68.41 Body mass index [BMI] 40.0-44.9, adult; Z01.818 Encounter for other preprocedural examination

== ENCOUNTER → 2024-02-21 08:45 | Outpatient (BNVA) | payer OTHER, SELFPAY | PROVIDERS: PCP Internal Medicine; Visit Provider Internal Medicine ==

== ENCOUNTER 2024-02-23 07:42 | Outpatient (REF) | payer OTHER, SELFPAY ==
[2024-02-23 08:12] LABS: MANUAL DIFF FLAG NO
--- NOTE | 2024-02-23 08:21 | ECG_ITS ---
Test Reason : pre op Blood Pressure : / mmHG Vent. Rate : 072 BPM Atrial Rate : 072 BPM P-R Int : 138 ms QRS Dur : 082 ms QT Int : 396 ms P-R-T Axes : 025 033 038 degrees QTc Int : 433 ms Normal sinus rhythm Nonspecific T wave abnormality Abnormal ECG When compared with ECG of 03-DEC-2020 14:48, No significant change was found Referred By: Karrie Morris Electronically Signed By:SMITHA ROMERO
[2024-02-23 08:48] LABS: Basophils Absolute Auto 0.1 X10*3/uL (0.0-0.2); Basophils Percent Auto 1.1 % (0-2); Eosinophils Absolute Auto 0.2 X10*3/uL (0.0-0.4); Eosinophils Percent Auto 2.6 % (0-4); Hematocrit 39.1 % (37.0-47.0); Hemoglobin 12.7 g/dl (12.0-16.0); Imm Gran Abs Auto 0.03 X10*3/uL (0.00-0.03); Imm Gran Pct Auto 0.4 % (0.0-0.4); Lymphocytes Absolute Auto 1.7 X10*3/uL (1.2-4.9); Lymphocytes Percent Auto 23.5 % (20-40); Mean Corpuscular HGB Conc 32.5 g/dl (31.0-35.0); Mean Corpuscular Hemoglobin 27.5 pg (27.0-33.0); Mean Corpuscular Volume 84.8 fL (80.0-98.0); Mean Platelet Volume 12.8 fL (9.4-12.3); Monocytes Absolute Auto 0.4 X10*3/uL (0.1-1.2); Monocytes Percent Auto 5.1 % (2-11); Neutrophils Absolute Auto 4.9 x10*3/uL (2.0-8.3); Neutrophils Percent Auto 67.3 % (45-73); Platelet Count 153 X10*3/uL (160-400); Red Blood Count 4.61 X10*6/uL (4.20-5.50); Red Cell Distribution Width 15.2 % (11.0-16.0); White Blood Count 7.3 X10*3/uL (4.8-10.8)
[2024-02-23 09:23] LABS: Alanine Aminotransferase 20 U/L (0-31); Alkaline Phosphatase 120 U/L (39-117); Anion Gap 9 (12-20); Aspartate Amino Transferase 16 U/L (5-31); Bilirubin Total 0.3 mg/dL (0.0-1.0); Blood Urea Nitrogen 11 mg/dL (9-16); C Reactive Protein 2.37 mg/dL (< or = 0.50); Calcium 9.4 mg/dL (8.4-10.2); Carbon Dioxide 27 mmol/L (22-29); Chloride 109 mmol/L (96-108); Estimated Glomerular Filt Rate > 60; Glucose Random 96 mg/dL (60-115); Potassium 4.2 mmol/L (3.3-5.1); Sodium 141 mmol/L (135-145); Total Protein 7.2 g/dL (6.5-8.0)
[2024-02-23 09:26] LABS: Erythrocyte Sedimentation Rate 23 MM/HR (0-20)
[2024-02-23 09:34] LABS: Alanine Aminotransferase 19 U/L (0-31); Alkaline Phosphatase 123 U/L (39-117); Anion Gap 10 (12-20); Aspartate Amino Transferase 17 U/L (5-31); Bilirubin Total 0.3 mg/dL (0.0-1.0); Blood Urea Nitrogen 11 mg/dL (9-16); Calcium 9.8 mg/dL (8.4-10.2); Carbon Dioxide 26 mmol/L (22-29); Chloride 109 mmol/L (96-108); Cholesterol 184 mg/dL (<200); Estimated Glomerular Filt Rate > 60; Glucose Fasting 96 mg/dL (60-99); HDL Cholesterol 53 mg/dL (>40); LDL Cholesterol Calculated 116 mg/dL (<100); Potassium 4.1 mmol/L (3.3-5.1); Sodium 141 mmol/L (135-145); Total Protein 7.2 g/dL (6.5-8.0); Triglycerides 79 mg/dL (<150)
[2024-02-23 09:54] LABS: Folate 10.5 ng/mL (> or = 4.0); Vitamin B12 603 pg/mL (200-900)
== END 2024-02-23 07:43 | disposition home or self-care (01) ==
LOC: HO.LAB 07:42
PROVIDERS: Student in an Organized Health Care Education/Training Program; PCP Internal Medicine; Visit Provider Internal Medicine
DX: Z01.818 Encounter for other preprocedural examination (principal); M35.9 Systemic involvement of connective tissue, unspecified; E53.8 Deficiency of other specified B group vitamins; E78.5 Hyperlipidemia, unspecified; E55.9 Vitamin D deficiency, unspecified
CPT/HCPCS: 36415; 80053; 80061; 82306; 82607; 82746; 85025; 85652; 86140; 93005

== ENCOUNTER → 2024-02-23 08:21 | Outpatient (BNV) | payer OTHER, SELFPAY | PROVIDERS: PCP Internal Medicine; Visit Provider Internal Medicine | DX: R94.31 Abnormal electrocardiogram [ECG] [EKG] (principal) | CPT/HCPCS: 93010 ==

== ENCOUNTER 2024-03-12 07:58 | Outpatient (AMB) | payer OTHER, SELFPAY ==
[2024-03-12 08:03] VITALS: BP 122/72; PULSE 72; O2SAT 97; BMI 44.8
--- NOTE | 2024-03-12 08:03 | MHC.PC.OV ---
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 by: Self / Same As Patient Allergies Seasonal Allergies Allergy (Severe, Verified 03/12/24 08:12) Difficulty Breathing Medication List - Last Reconciled 03/12/24 by Karrie Morris MD albuterol sulfate 2.5 mg (3 mL) inhalation Q6H PRN 30 days albuterol sulfate 90 mcg/actuation 2 inhalations inhalation Q6H PRN 30 days budesonide-formoterol 160-4.5 mcg/actuation 2 puffs inhalation BID 90 days calcium carbonate (Oyster Shell Calcium) 500 mg PO BID 90 days cetirizine 10 mg PO DAILY 30 days cholecalciferol (vitamin D3) 25 mcg PO DAILY 90 days cyclobenzaprine 5 mg PO BEDTIME PRN 30 days furosemide 20 mg PO DAILY PRN 90 days hydroxychloroquine 200 mg PO BID ibuprofen 400 - 800 mg (1 - 2 x 400 mg) PO BID ketorolac 10 mg PO Q8H PRN 10 days montelukast (Singulair) 10 mg PO BEDTIME 90 days nebulizers As directed sertaconazole 2% (Ertaczo) 1 appl topical BID 30 days tiotropium bromide 2.5 mcg/actuation (Spiriva Respimat) 2 puffs inhalation DAILY 30 days tirzepatide (weight loss) (Zepbound) 2.5 mg (0.5 mL) subcut QWEEK 4 weeks umeclidinium 62.5 mcg/actuation (Incruse Ellipta) 1 inh inhalation DAILY 30 days Tobacco use date assessed: 03/12/24 Dental Screening Dental Screen Date: 03/12/24 Did you have a dental visit in the last 12 months?: No Did you have a dental problem in the last 6 months where you did not have access to dental care?: No Was dental information given to patient?: Patient has dentist HPI HPI Comments History of Present Illness Details The patient is a 54-year-old female presenting with tremor of the hands. The tremor has been present for approximately three to four months. It occurs when she is performing actions, such as holding a phone, and it is significant enough that she sometimes needs to stabilize the phone with her other hand. There are no reported family members with similar symptoms. The patient denies any sedentary tremor. Aside from the tremor, she states that her asthma appears to be well-controlled and her lymphedema has improved. In relation to lymphedema, she has been using a machine at home for over a week, which has resulted in a reduction of swelling in her legs and has alleviated associated pain. She also reports using a CPAP machine intermittently due to coughing, but she has not experienced fever. All other labs and recent medical evaluations have been noted as satisfactory by the patient. She also has undifferentiated connective tissue disease on hydroxychloroquine follow by rheumatology and has had ophthalmology evaluation to avoid ocular complications with hydroxychloroquine. She is morbidly obese and was advise to do diet and exercise. Will try Zepbound to help her with the weight. [facility] Medical History Lymphedema Physical exam Morbid obesity Abnormal Pap smear of cervix Bronchitis Pleuritic chest pain Venous insufficiency Osteopenia (~2019) Tubular adenoma of colon (~2016) Eosinophilia Chronic cough Vitamin D deficiency Vitamin B1 deficiency BMI 40.0-44.9, adult Cholelithiasis Right hip pain Abdominal bloating Asthma Lupus Hx of coronary artery disease History of asthma History of diastolic dysfunction Hx of varicose veins History of vitamin D deficiency Hx of hyperlipidemia Surgical History History of loop electrical excision procedure (LEEP) History of cardiac cath History of colonoscopy History of foot surgery History of hysteroscopy History of tubal ligation (~1992) History of ear surgery Family History Father Diabetes Cancer Colon cancer Paternal Grandfather Diabetes Maternal Aunt Cancer History of breast cancer Mother Sudden Sister Rheumatoid arthritis Hypothyroidism Sister Rheumatoid arthritis Sister No problems noted. Brother Diabetes Brother No problems noted. Son No problems noted. Daughter No problems noted. Daughter No problems noted. Daughter Lupus Social History Housing: House Alcohol intake: never Patient Tobacco Use Status: Never used Tobacco e-Cigarette/Vaping Use: Never Used Second Hand Smoke Exposure: No service: No Current occupational status: employed Current occupational exposures/hazards: No Sexual orientation: Straight/Heterosexual Gender identity: Female Cognitive needs: No Hearing needs: No Vision needs: Yes Questionnaire Thrive Questionnaire Date Thrive assessed: 05/16/23 JANELL-7 AMB Questionnaire JANELL-7 Date JANELL - 7 assessed: 05/16/23 Source: Developed by Drs. Geovany Meadows, Marcella Rodriguez, Chapo Newton and colleagues, with an educational karey from [employer]. Review of Systems Const All systems reviewed & are unremarkable except as noted in HPI and below Card Denies chest pain at rest, Denies chest pain with activity, Denies edema, Denies irregular heart rhythm, Denies claudication, Denies dyspnea, Denies dyspnea on exertion, Denies orthopnea, Denies paroxysmal nocturnal dyspnea and Denies slow heart rate Resp Reports cough, Denies dyspnea and Denies dyspnea on exertion GI Denies abdominal pain, Denies change in bowel habits, Denies excessive flatus, Denies nausea and Denies vomiting Neuro Denies confusion and Reports tremor(s) Psych Denies confusion Physical exam (Primary Care) Vital Signs: Last Vital Signs Pulse 72 03/12/24 08:03 BP 122/72 03/12/24 08:03 Pulse Ox 97 03/12/24 08:03 Oxygen Delivery Method Room Air 03/12/24 08:03 BMI result Body Mass Index 44.8 BMI Assessment/Plan discussion: High BMI High, discussed plan: lifestyle, weight reduction, dietary and physical activity Tobacco/Smoking Status: Tobacco use Status Tobacco use date assessed 03/12/24 03/12/24 08:10 Patient Tobacco Use Status Never used Tobacco 03/12/24 08:10 e-Cigarette/Vaping Use Never Used 03/12/24 08:10 Thrive Assessment: Date of Thrive Assessment Date Thrive assessed 05/16/23 03/12/24 08:10 Const General: No confusion Nutritional Appearance: obese Orientation/consciousness: No confusion Resp Effort & Inspection: normal respiratory effort Auscultation: clear to auscultation bilaterally Cardio Jugular venous distension: no JVD Rate: regular rate Rhythm: regular rhythm Heart sounds: S1 normal heart sound present and S2 normal heart sound present Neuro General: no focal motor deficits and No confusion Gait exam (Neuro): Normal gait present Motor exam (neuro): Tremors during motor activity present Extrem General: Yes full ROM Coding Level of Care Code Est Pt Level 4 (86106) Complex EM visit Add On G2211 Diagnoses Tremors of nervous system R25.1 Lymphedema I89.0 Undifferentiated connective tissue disease M35.9 Morbid obesity E66.01 MARSHALL (obstructive sleep apnea) G47.33 Moderate persistent asthma without complication J45.40 Asthma complication type: uncomplicated Asthma persistence: persistent Asthma severity: moderate Allergic rhinitis J30.9 Time Spent (min) 24 Assessment & Plan Assessment & Plan (1) Tremors of nervous system: Code(s): R25.1 - Tremor, unspecified Category: Medical Plan: Referred to neurology. (2) Lymphedema: Code(s): I89.0 - Lymphedema, not elsewhere classified Category: Medical Plan: Continue use of compressive machine for 1 hour per day. (3) Undifferentiated connective tissue disease: Comment: dx Lupus 2019 (+KARRIE, leukopenia, arthralgia) HCQ from 2018 to 2021. Repeat KARRIE -ve 2021 HCQ restarted 07/2023 Code(s): M35.9 - Systemic involvement of connective tissue, unspecified Category: Medical Plan: Continue hydroxychloroquine. Follow-up with rheumatology. (4) Morbid obesity: Code(s): E66.01 - Morbid (severe) obesity due to excess calories Category: Medical Plan: Start Zepbound if approved by insurance. BMI goal is less than 30. (5) MARSHALL (obstructive sleep apnea): Code(s): G47.33 - Obstructive sleep apnea (adult) (pediatric) Category: Medical Plan: Continue CPAP machine. (6) Asthma: Code(s): J45.909 - Unspecified asthma, uncomplicated Category: Medical Qualifiers: Asthma complication type: uncomplicated Asthma persistence: persistent Asthma severity: moderate Qualified Code(s): J45.40 - Moderate persistent asthma, uncomplicated Plan: Continue long-acting inhaler. Use rescue inhaler as needed. Follow-up with pulmonology. (7) Allergic rhinitis: Code(s): J30.9 - Allergic rhinitis, unspecified Category: Medical Plan: Continue antihistamines as needed. Plan - Tremor: Referral to neurology for further evaluation in a non-urgent manner. - Seasonal Allergic Rhinitis: Continue cetirizine for allergy management. - Asthma: Continue current inhaler regime. Patient is advised to observe any exacerbation of symptoms. - Lymphedema: Encourage continued use of the compression therapy machine at home. - Obesity: Attempt to obtain approval under new plans for the use of Wegovy for weight management. Orders: Referrals Neurology Referral R25.1 - Tremor, unspecified Medications: New ketoconazole 2% 1 appl topical DAILY 30 grams 1RF 30 days Refilled tirzepatide (weight loss) (Zepbound) for 4 weeks 2.5 mg (0.5 mL) subcut QWEEK 2 mL 0RF 4 weeks E66.01 - Morbid (severe) obesity due to excess calories, G47.33 - Obstructive sleep apnea (adult) (pediatric)
== END 2024-03-12 08:27 | disposition home or self-care (01) ==
PROVIDERS: PCP Internal Medicine; Visit Provider Internal Medicine
DX: R25.1 Tremor, unspecified (principal); M35.9 Systemic involvement of connective tissue, unspecified; E66.01 Morbid (severe) obesity due to excess calories; Z68.41 Body mass index [BMI] 40.0-44.9, adult; I89.0 Lymphedema, not elsewhere classified; G47.33 Obstructive sleep apnea (adult) (pediatric); J45.40 Moderate persistent asthma, uncomplicated; J30.9 Allergic rhinitis, unspecified

== ENCOUNTER 2024-06-08 12:49 | Outpatient (AMB) | payer OTHER, SELFPAY ==
--- NOTE | 2024-06-08 12:52 | A.OFFVIS_ITS ---
Vital Signs 06/08/24 13:03 Height 5 ft 2 in Weight 242 lb 8.136 oz BMI 44.4 BP 120/70 Blood Pressure Location Rt brachial Position Sitting Pulse 79 Pulse Source Pulse Oximeter Pulse Oximetry (%) 97 Oxygen Delivery Method Room Air Intake Visit Reasons: UCTD Intake Note: Patient presents for UCTD. Allergies Seasonal Allergies Allergy (Severe, Verified 06/08/24 12:55) Difficulty Breathing Medication List - Last Reconciled 06/08/24 by Kathia Alvarado MD albuterol sulfate 2.5 mg (3 mL) inhalation Q6H PRN 30 days albuterol sulfate 90 mcg/actuation 2 inhalations inhalation Q6H PRN 30 days budesonide-formoterol 160-4.5 mcg/actuation 2 puffs inhalation BID 90 days cetirizine 10 mg PO DAILY 30 days cyclobenzaprine 5 mg PO BEDTIME PRN 30 days diclofenac sodium 1% (Arthritis Pain (diclofenac)) 4 grams topical QID ibuprofen 400 - 800 mg (1 - 2 x 400 mg) PO BID ketoconazole 2% 1 appl topical DAILY 30 days montelukast (Singulair) 10 mg PO BEDTIME 90 days nebulizers As directed sertaconazole 2% (Ertaczo) 1 appl topical BID 30 days tirzepatide (weight loss) (Zepbound) 5 mg (0.5 mL) subcut QWEEK 4 weeks umeclidinium 62.5 mcg/actuation (Incruse Ellipta) 1 inh inhalation DAILY 30 days HPI Comments Details: Patient is a 54-year-old morbidly obese female with anxiety/depression, polyarticular osteoarthritis, and undifferentiated connective tissue disease here today for follow up Interval History: Patient last seen 11/16/[address] López. At that time she was on Plaquenil 200 mg twice daily for the past 3 months and she reported feeling about 50% better overall when compared to before. Since then patient stopped the medication in November because she is not sure that she needs the medication. Since stopping the medication she has not noticed the pain worsening and she feels the same. She had complained of leg swelling in the past and uses pneumatic compression once a day for 1 hour which helps with that. Now complaining of intermittent pain and burning to the left ankle Can happen at any time of the day Also complains of pain in her legs (does not point to any joint) particularly when she stands or walks for a long period of time Rheumatologic History: dx UCTD 2019 (+ABNER, leukopenia, arthralgia) HCQ from 2018 to 2021. Repeat ABNER - ve 2021 HCQ restarted 07/2023 Current Rheumatology Medication(s): Plaquenil 200mg bid PFS Medical History (Updated 06/08/24 @ 14:25 by Kathia Alvarado MD) Osteoarthritis of ankles, bilateral Encounter for monitoring of hydroxychloroquine therapy Lymphedema Physical exam Morbid obesity Abnormal Pap smear of cervix Bronchitis Pleuritic chest pain Venous insufficiency Osteopenia (~2019) Tubular adenoma of colon (~2016) Eosinophilia Chronic cough Vitamin D deficiency Vitamin B1 deficiency BMI 40.0-44.9, adult Cholelithiasis Right hip pain Abdominal bloating Asthma Lupus Hx of coronary artery disease History of asthma History of diastolic dysfunction Hx of varicose veins History of vitamin D deficiency Hx of hyperlipidemia Surgical History History of loop electrical excision procedure (LEEP) History of cardiac cath History of colonoscopy History of foot surgery History of hysteroscopy History of tubal ligation (~1992) History of ear surgery Family History Father Diabetes Cancer Colon cancer Paternal Grandfather Diabetes Maternal Aunt Cancer History of breast cancer Mother Sudden Sister Rheumatoid arthritis Hypothyroidism Sister Rheumatoid arthritis Sister No problems noted. Brother Diabetes Brother No problems noted. Son No problems noted. Daughter No problems noted. Daughter No problems noted. Daughter Lupus Social History Housing: House Alcohol intake: never Patient Tobacco Use Status: Never used Tobacco e-Cigarette/Vaping Use: Never Used Second Hand Smoke Exposure: No service: No Current occupational status: employed Current occupational exposures/hazards: No Sexual orientation: Straight/Heterosexual Gender identity: Female Cognitive needs: No Hearing needs: No Vision needs: Yes Review of Systems Const Details: Review of Systems Constitutional: Denies fever, chills, weight loss ENT: Denies vision changes, eye pain or eye redness, dental caries, dry mouth GI: Denies nausea, vomiting, diarrhea, abdominal pain, change in BM Pulm: Denies SOB, CH, hemoptysis, wheezing Cards: Denies chest pain, palpitations Skin: Denies Raynaud's, rash, nail changes, photosensitivity, [employer]: Denies headaches, weakness, paresthesias, recurrent falls MSK: as per HPI All other systems reviewed and are unremarkable except noted above Physical Exam Vital Signs: Last Vital Signs Pulse 79 06/08/24 13:03 BP 120/70 06/08/24 13:03 Pulse Ox 97 06/08/24 13:03 Oxygen Delivery Method Room Air 06/08/24 13:03 BMI result Body Mass Index 44.4 Vital signs reviewed Physical Examination CONSTITUITIONAL Patient alert and cooperative. Well appearing and in no apparent painful distress HEENT Conjunctiva and sclera clear. ?Pupils equal round and reactive to light. ?No lymphadenopathy. ? CHEST/RESPIRATORY SYSTEM Normal respiratory effort and able to speak in complete sentences. ?Clear to auscultation bilaterally. ?No crackles, rales, rhonchi, wheezes heard. CARDIAC SYSTEM Regular rate and rhythm. ?S1 and S2 heard no murmurs. 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 No deformities noted. ?No synovitis noted to the MCPs, PIPs or DIPs. ?No tenderness to palpation of these joints. Wrists: ?Full range of motion at the wrists without pain. ?No tenderness to palpation or synovitis noted to the wrists. Elbows: Full range of motion without pain. No tenderness, weakness, swelling, increased warmth or erythema. Shoulders: Full range of motion without pain. No tenderness, weakness, swelling, increased warmth or erythema. Hips: Full range of motion without pain. Hip bursa: No tenderness to palpation Knees: ?Full range of motion. ?No tenderness, swelling, increased warmth or erythema. Bilateral crepitations felt Ankles: Full range of motion. ?Bilateral soft tissue fullness noted to the lateral and medial malleoli Feet: ?Negative squeeze test. ?No tenderness to palpation or swelling of the MTPs. Tender points:?No tenderness to palpation of the bilateral trapezius, supraspinatus, greater trochanters, anterior costochondral junctions, bilateral gluteal areas, bilateral suboccipital muscle insertions SKIN Skin intact without rashes. Results Reviewed Results Reviewed: Laboratory Tests 12/08/21 02/23/24 08:40 08:10 WBC 7.3 RBC 4.61 Hgb 12.7 Hct 39.1 Plt Count 153 L ESR 23 H Sodium 141 Potassium 4.2 Chloride 109 H Carbon Dioxide 27 BUN 11 Creatinine 0.78 Total Bilirubin 0.3 AST 16 ALT 20 Alkaline Phosphatase 120 H C-Reactive Protein 2.37 H 25-OH Vitamin D Total 27.0 L Complement C3 157 Complement C4 33 DEXA 08/2022 FINDINGS: AP SPINE L1-L4: Current: BMD 0.959 g/cm2, Z-score -2.3, T-score -1.8, osteopenia, 6.0% decrease from baseline (<5% change is not significant). Baseline: BMD 1.020 g/cm2. LEFT FEMUR, NECK: Current: BMD 0.894 g/cm2, Z-score -0.8, T-score -1.0, normal. Baseline: BMD 0.904 g/cm2. LEFT FEMUR, TOTAL: Current: BMD 1.112 g/cm2, Z-score 0.6, T-score 0.8, normal, 1.1% increase from baseline (<5% change is not significant). Baseline: BMD 1.100 g/cm2. FRAX: Major osteoporotic fracture (clinical spine, forearm, hip or shoulder) 2.5%. Hip fracture 0.1%. Assessment & Plan Assessment & Plan (1) Undifferentiated connective tissue disease: Comment: dx UCTD 2018 (+ABNER, leukopenia, arthralgia) HCQ from 2019 to 2021. Repeat ABNER - ve 2021 HCQ restarted 07/2023 - 01/2024 Code(s): M35.9 - Systemic involvement of connective tissue, unspecified Category: Medical Plan: #UCTD Patient with undifferentiated connective tissue disease based on history of positive ABNER, leukopenia and arthralgias. Repeat ABNER in 2021 negative. Patient self discontinued Plaquenil in January of last year and has not felt any difference off the medication. Today her complaints seem more related to osteoarthritis than any underlying inflammatory arthritis. Her elevated ESR and CRP are well within the normal limits when corrected for her age and her weight. The corrected upper limit of normal for her CRP at a BMI of 44 is 2.52, of which she is in the normal limits. And the age corrected ESR upper limit of normal is 32, which she is also within normal limits. We will continue to follow her to see if there is any development of inflammatory arthritis type symptoms but at this time I think she can remain off of Plaquenil Plan - Monitor off plaquenil - RTC 3 months (2) Osteopenia: Onset Date: ~2019 Comment: (Bone Dexa Lumbar T-score -1.3 12/05/2019) Code(s): M85.80 - Other specified disorders of bone density and structure, unspecified site Category: Medical Qualifiers: Osteopenia location: spine Qualified Code(s): M85.88 - Other specified disorders of bone density and structure, other site Plan: #Osteopenia FRAX score not at the level that requires treatment Continue vitamin-D supplementation Weight-bearing exercises Repeat DEXA at next visit Plan - DEXA 08/2024 (3) Polyarticular osteoarthritis: Code(s): M15.9 - Polyosteoarthritis, unspecified Plan: #Polyarticular OA Patient with polyarticular osteoarthritis involving the knees, ankles and likely neck. Reviewed x-rays from 2022 and 2021 which showed early osteoarthritic changes in both knees and ankles. I discussed with the patient that it is likely that this has progressed and is likely the cause of her pain Recommended topical diclofenac X-rays ordered Plan - Topical diclofenac 1% qid - XRs knees, neck and ankles - RTC 3 months to review XRs and gel efficacy Plan I spent 30 minutes reviewing the record and labs, taking a history, examining the patient, discussing the treatment plan and documenting in the medical record Orders: Orders XR knee LT 3V Today M17.0 - Bilateral primary osteoarthritis of knee, M19.071 - Primary osteoarthritis, right ankle and foot, M19.072 - Primary osteoarthritis, left ankle and foot XR knee RT 3V Today M17.0 - Bilateral primary osteoarthritis of knee, M19.071 - Primary osteoarthritis, right ankle and foot, M19.072 - Primary osteoarthritis, left ankle and foot XR knee standing BI Today M17.0 - Bilateral primary osteoarthritis of knee, M19.071 - Primary osteoarthritis, right ankle and foot, M19.072 - Primary osteoarthritis, left ankle and foot XR ankle LT min 3V Today M17.0 - Bilateral primary osteoarthritis of knee, M19.071 - Primary osteoarthritis, right ankle and foot, M19.072 - Primary osteoarthritis, left ankle and foot XR cervical spine 4V Today M54.2 - Cervicalgia XR ankle RT min 3V Today M17.0 - Bilateral primary osteoarthritis of knee, M19.071 - Primary osteoarthritis, right ankle and foot, M19.072 - Primary osteoarthritis, left ankle and foot Medications: New diclofenac sodium 1% (Arthritis Pain (diclofenac)) Apply to bilateral knees 4 times a day DO not use with ibuprofen 4 grams topical QID 100 grams 3RF M19.071 - Primary osteoarthritis, right ankle and foot, M19.072 - Primary osteoarthritis, left ankle and foot Coding Level of Care Code Est Pt Level 4 (09202) Diagnoses Undifferentiated connective tissue disease M35.9 Osteopenia of spine M85.88 Osteopenia location: spine Polyarticular osteoarthritis M15.9
[2024-06-08 13:03] VITALS: BP 120/70; PULSE 79; O2SAT 97; BMI 44.4
== END 2024-06-08 14:16 | disposition home or self-care (01) ==
PROVIDERS: PCP Internal Medicine; Visit Provider Student in an Organized Health Care Education/Training Program
DX: M35.89 Other specified systemic involvement of connective tissue (principal); M85.88 Other specified disorders of bone density and structure, other site; M15.9 Polyosteoarthritis, unspecified
CPT/HCPCS: 99214

== ENCOUNTER 2024-06-08 12:49 | Outpatient (REF) | payer OTHER, SELFPAY ==
--- NOTE | ~2024-06-08 | XR_ITS ---
EXAMINATION: XR ANKLE, RIGHT CLINICAL INFORMATION: M17.0 - Bilateral primary osteoarthritis of knee; right ankle pain COMPARISON: None available. TECHNIQUE: AP, lateral, and mortise views of the right ankle. FINDINGS: No fracture, dislocation, or suspicious bone lesion. No malalignment. Ankle mortise is intact. The talar dome is normal. Subtalar joints are normal. The calcaneus is intact. Tiny plantar and dorsal calcaneal spurs. No evidence of ankle joint effusion. Relatively diffuse subcutaneous soft tissue edema of the lower leg and ankle. XR/XR ankle RT min 3V IMPRESSION: 1. No acute findings right ankle joint. 2. Diffuse subcutaneous soft tissue edema lower leg and ankle. Electronically signed by: Duy Barber MD 06/12/2024 12:04 PM [facility]
--- NOTE | ~2024-06-08 | XR_ITS ---
EXAMINATION: XR ANKLE, LEFT CLINICAL INFORMATION: M17.0 - Bilateral primary osteoarthritis of knee COMPARISON: None available. TECHNIQUE: AP, lateral, and mortise views of the left ankle. FINDINGS: No fracture, dislocation, or suspicious bone lesion. Mild arthritis in the tibiotalar joint with subtle marginal spurs. The mortise is intact and normally aligned. The talar dome is normal. The subtalar joints appear normal. The calcaneus demonstrates small both dorsal and plantar spurs. There is diffuse soft tissue edema about the ankle and lower leg. XR/XR ankle LT min 3V IMPRESSION: 1. Soft tissue edema about the ankle and involving the lower leg. 2. No acute bony abnormalities of the ankle. Mild osteoarthritis of the ankle joint. Electronically signed by: Duy Barber MD 06/12/2024 09:00 AM [facility]
--- NOTE | ~2024-06-08 | XR_ITS ---
EXAMINATION: XR KNEE, LEFT CLINICAL INFORMATION: M17.0 - Bilateral primary osteoarthritis of knee COMPARISON: None available. TECHNIQUE: AP bilateral knees standing, and 3 views of the left knee. FINDINGS: The left knee demonstrates mild tricompartmental osteoarthrosis most significant in the medial and patellofemoral compartment. Normal alignment. No fracture or acute bony abnormalities. No evidence of significant right joint effusion. Normal soft tissues. XR/XR knee LT 3V IMPRESSION: 1. No acute findings left knee. 2. Mild tricompartmental osteoarthrosis most significant medial and patellofemoral compartments. Electronically signed by: Duy Barber MD 06/12/2024 12:01 PM [facility]
--- NOTE | ~2024-06-08 | XR_ITS ---
EXAMINATION: XR CERVICAL SPINE CLINICAL INFORMATION: M54.2 - Cervicalgia COMPARISON: July 12, 2022. TECHNIQUE: 6 views of the cervical spine, inclusive of flexion and extension views, were obtained. FINDINGS: Craniocervical junction is intact. Endplate irregularities sclerosis and marginal osteophyte formation at C5-6. No acute cortical disruption or gross malalignment. No lytic or blastic lesions. No gross neuroforamina stenosis. Upper airway is patent. XR/XR cervical spine 4V IMPRESSION: Spondylosis, moderate to severe at C5-6. Electronically signed by: Helio Lynn MD 06/12/2024 12:04 PM [facility] [place]
--- NOTE | ~2024-06-08 | XR_ITS ---
EXAMINATION: XR KNEE, RIGHT CLINICAL INFORMATION: M17.0 - Bilateral primary osteoarthritis of knee COMPARISON: None available. TECHNIQUE: AP bilateral knees standing, and 3 views right knee. FINDINGS: AP bilateral knees standing demonstrates normal-appearing medial lateral compartments left knee with normal alignment. The right knee demonstrates early tricompartmental osteoarthrosis most significant in the patellofemoral compartment. Normal alignment. No fracture or acute bony abnormalities. No evidence of significant right joint effusion. Normal soft tissues. XR/XR knee RT 4V IMPRESSION: 1. Early tricompartmental osteoarthrosis right knee, most significant patellofemoral compartment. 2. Slightly more advanced medial compartment arthritis left knee. Electronically signed by: Duy Barber MD 06/12/2024 11:59 AM [facility]
== END 2024-06-08 12:50 | disposition home or self-care (01) ==
LOC: HO.XRAY 12:49
PROVIDERS: PCP Internal Medicine; Visit Provider Student in an Organized Health Care Education/Training Program
DX: M17.0 Bilateral primary osteoarthritis of knee (principal); M19.071 Primary osteoarthritis, right ankle and foot; M19.072 Primary osteoarthritis, left ankle and foot; M54.2 Cervicalgia
CPT/HCPCS: 72050; 73562; 73564; 73610

== ENCOUNTER → 2024-06-08 14:23 | Outpatient (BNV) | payer OTHER, SELFPAY | PROVIDERS: PCP Internal Medicine; Visit Provider Radiology Diagnostic Radiology | DX: M19.072 Primary osteoarthritis, left ankle and foot (principal); M25.571 Pain in right ankle and joints of right foot; M17.0 Bilateral primary osteoarthritis of knee; M47.812 Spondylosis without myelopathy or radiculopathy, cervical region | CPT/HCPCS: 72050; 73562; 73564; 73610 ==

== ENCOUNTER 2024-07-16 08:05 | Outpatient (AMB) | payer OTHER, SELFPAY ==
--- NOTE | 2024-07-16 08:08 | A.OFFPC_ITS ---
Vital Signs 07/16/24 08:09 Height 5 ft 2 in Weight 238 lb BMI 43.5 BP 120/82 Blood Pressure Location Lt brachial Position Sitting Intake Visit Reasons: bp Intake Note: Patient here for a follow up bp Hydrator Required: Yes Hydrator Language: Cable Braider Name: Karrie Morris MD Information Interpreted: non-clinical & clinical Accompanied by: Self / Same As Patient Allergies Seasonal Allergies Allergy (Severe, Verified 07/16/24 08:31) Difficulty Breathing Medication List - Last Reconciled 07/16/24 by Karrie Morris MD albuterol sulfate 2.5 mg (3 mL) inhalation Q6H PRN 30 days albuterol sulfate 90 mcg/actuation 2 inhalations inhalation Q6H PRN 30 days budesonide-formoterol 160-4.5 mcg/actuation 2 puffs inhalation BID 90 days cetirizine 10 mg PO DAILY cyclobenzaprine 5 mg PO BEDTIME PRN 30 days diclofenac sodium 1% (Arthritis Pain (diclofenac)) 4 grams topical QID ibuprofen 400 - 800 mg (1 - 2 x 400 mg) PO BID ketoconazole 2% 1 appl topical DAILY 30 days montelukast (Singulair) 10 mg PO BEDTIME 90 days nebulizers As directed sertaconazole 2% (Ertaczo) 1 appl topical BID 30 days tirzepatide (weight loss) (Zepbound) 5 mg (0.5 mL) subcut QWEEK 4 weeks umeclidinium 62.5 mcg/actuation (Incruse Ellipta) 1 inh inhalation DAILY 30 days Tobacco use date assessed: 07/16/24 Dental Screening Dental Screen Date: 07/16/24 Did you have a dental visit in the last 12 months?: Yes Did you have a dental problem in the last 6 months where you did not have access to dental care?: No Was dental information given to patient?: Patient has dentist HPI HPI Comments History of Present Illness Details The patient is a 54-year-old female presenting with management concerns regarding her diagnosed undifferentiated connective tissue disease. She reports significant discomfort and difficulty ambulating caused by persistent pain localized primarily to her right foot and ankle. This issue does not seem to be associated with any recent trauma or infection, and imaging in the past indicated soft tissue edema without fracture. She also presents with dermatitis located around her neck, likely contact dermatitis, worsened upon exposure to certain clothing materials. This has been present for approximately two months. The patient's obesity requires active management due to morbid complications, and past lymphedema of both legs is noted, with concerns raised about current strategies for fitting compression stockings. Additionally, allergic rhinitis is being managed with cetirizine. [facility] Medical History (Updated 07/16/24 @ 12:00 by Karrie Morris MD) Mild episode of recurrent major depressive disorder Osteoarthritis of ankles, bilateral Encounter for monitoring of hydroxychloroquine therapy Lymphedema Physical exam Morbid obesity Abnormal Pap smear of cervix Bronchitis Pleuritic chest pain Venous insufficiency Osteopenia (~2019) Tubular adenoma of colon (~2016) Eosinophilia Chronic cough Vitamin D deficiency Vitamin B1 deficiency BMI 40.0-44.9, adult Cholelithiasis Right hip pain Abdominal bloating Asthma Lupus Hx of coronary artery disease History of asthma History of diastolic dysfunction Hx of varicose veins History of vitamin D deficiency Hx of hyperlipidemia Surgical History History of loop electrical excision procedure (LEEP) History of cardiac cath History of colonoscopy History of foot surgery History of hysteroscopy History of tubal ligation (~1992) History of ear surgery Family History Father Diabetes Cancer Colon cancer Paternal Grandfather Diabetes Maternal Aunt Cancer History of breast cancer Mother Sudden Sister Rheumatoid arthritis Hypothyroidism Sister Rheumatoid arthritis Sister No problems noted. Brother Diabetes Brother No problems noted. Son No problems noted. Daughter No problems noted. Daughter No problems noted. Daughter Lupus Social History Housing: House Alcohol intake: never Patient Tobacco Use Status: Never used Tobacco e-Cigarette/Vaping Use: Never Used Second Hand Smoke Exposure: No service: No Current occupational status: employed Current occupational exposures/hazards: No Sexual orientation: Straight/Heterosexual Gender identity: Female Cognitive needs: No Hearing needs: No Vision needs: Yes Questionnaire PHQ-9 Over the last 2 weeks, how often have you been bothered by any of the following problems? 1. Little interest or pleasure in doing things: not at all 2. Feeling down, depressed, or hopeless: not at all 3. Trouble falling or staying asleep, or sleeping too much: not at all 4. Feeling tired or having little energy: not at all 5. Poor appetite or overeating: not at all 6. Feeling bad about yourself - or that you are a failure or have let yourself or your family down: not at all 7. Trouble concentrating on things, such as reading the newspaper or watching television: not at all 8. Moving or speaking so slowly that other people could have noticed. Or the opposite - being so fidgety or restless that you have been moving around a lot more than usual: not at all 9. Thoughts that you would be better off or of hurting yourself in some way: not at all Total score: 0 Depression Screening Interpretation: Negative Depression Screening Done: Yes 12651 - PHQ-9 Billing: Yes Source: Developed by Drs. Geovany Meadows, Marcella Rodriguez, Chapo Newton and colleagues, with an educational karey from [employer]. Thrive Questionnaire Date Thrive assessed: 07/16/24 I am a: Patient What is your living situation today?: I have a steady place to live Within the past 12 months, did the food you bought not last and you didn't have the money to get more?: Never true Within the past 12 months, did you worry whether your food would run out before you got money to buy more?: Never true Do you have trouble paying for medicines?: No Do you have trouble getting transportation to medical appointments?: No Do you have trouble paying your heating and electricity bill?: No Do you have trouble taking care of your child, family member or friend?: No Do you have trouble with day-to-day activities such as bathing, preparing meals, shopping, managing finances, etc.?: No Are you currently unemployed and looking for a job?: No Are you interested in more education?: No Please select the resources that you would like help with: None Currently or been in a relationship where the following occur: No concerns reported THRIVE Score: 0 AUDIT C Alcohol Use Questionnaire (AUDIT-C) 1. How often do you have a drink containing alcohol?: Never Total Score: 0 Score Reviewed/Action Taken: No JANELL-7 AMB Questionnaire JANELL-7 Date JANELL - 7 assessed: 07/16/24 Feeling nervous, anxious, or on edge: 0 = Not at all Not being able to stop or control worryin = Not at all Worrying too much about different things: 0 = Not at all Trouble relaxin = Not at all Being so restless that it is hard to sit still: 0 = Not at all Becoming easily annoyed or irritable: 0 = Not at all Feeling afraid as if something awful might happen: 0 = Not at all Total JANELL-7 score (0-4 normal; 5-9 mild; 10-14 moderate; 15-21 severe): 0 Source: Developed by Drs. Geovany Meadows, Marcella Rodriguez, Chapo Newton and colleagues, with an educational karey from [employer]. JANELL-7 Assessment Billing JANELL-7 Assessment Tool: JANELL-7 Assessment 93222 Review of Systems Const All systems reviewed & are unremarkable except as noted in HPI and below Card Denies chest pain at rest, Denies chest pain with activity, Denies edema, Denies irregular heart rhythm, Denies claudication, Denies dyspnea, Denies dyspnea on exertion, Denies orthopnea, Denies paroxysmal nocturnal dyspnea and Denies slow heart rate Resp Denies cough, Denies dyspnea and Denies dyspnea on exertion GI Denies abdominal pain, Denies change in bowel habits, Denies excessive flatus, Denies nausea and Denies vomiting Denies urinary incontinence, Denies urinary hesitancy and Denies urinary urgency Physical exam (Primary Care) Vital Signs: Last Vital Signs BP 120/82 07/16/24 08:09 BMI result Body Mass Index 43.5 BMI Assessment/Plan discussion: High BMI High, discussed plan: lifestyle, weight reduction, dietary and physical activity Tobacco/Smoking Status: Tobacco use Status Tobacco use date assessed 07/16/24 07/16/24 08:15 Patient Tobacco Use Status Never used Tobacco 07/16/24 08:15 e-Cigarette/Vaping Use Never Used 07/16/24 08:15 PHQ-9: PHQ-9 Score PHQ-9: Total score 0 07/16/24 10:11 Depression Screening Interpretation: Negative Thrive Assessment: Date of Thrive Assessment Date Thrive assessed 07/16/24 07/16/24 08:15 Currently or been in a relationship where the following occur: No concerns reported Resp Effort & Inspection: normal respiratory effort Auscultation: clear to auscultation bilaterally Cardio Jugular venous distension: no JVD Rate: regular rate Rhythm: regular rhythm Heart sounds: S1 normal heart sound present and S2 normal heart sound present Extrem General: Yes full ROM Coding Level of Care Code Est Pt Level 4 (40957) Complex EM visit Add On G2211 Diagnoses Undifferentiated connective tissue disease M35.9 Lymphedema I89.0 Morbid obesity E66.01 Rash R21 Additional Codes JANELL-7 Assessment Billing - JANELL-7 Assessment Tool: JANELL-7 Assessment 08459 ([id number]) PHQ-9 - 79843 - PHQ-9 Billing: Yes ([id number]) Time Spent (min) 23 Assessment & Plan Assessment & Plan (1) Undifferentiated connective tissue disease: Comment: dx UCTD 2018 (+KARRIE, leukopenia, arthralgia) HCQ from 2018 to 2021. Repeat KARRIE - ve 2021 HCQ restarted 07/2023 - 01/2024 Code(s): M35.9 - Systemic involvement of connective tissue, unspecified Category: Medical (2) Lymphedema: Code(s): I89.0 - Lymphedema, not elsewhere classified Category: Medical (3) Morbid obesity: Code(s): E66.01 - Morbid (severe) obesity due to excess calories Category: Medical (4) Rash: Code(s): R21 - Rash and other nonspecific skin eruption Category: Medical Plan The continuation of current management for undifferentiated connective tissue disease includes adherence to prescribed rheumatological treatments informed by imaging results indicating soft tissue edema. For dermatitis, I have recommended a topical application and ongoing allergy management. Rigoberto the patient's symptoms of pain, I have advised unfit compression garment alternatives. Obesity management will consider lifestyle adjustments with guarded attention to upcoming laboratory tests and possible therapeutic interventions when scheduled. Her treatment plan consolidates prescribed medications for chronic conditions, with emphasis on compliance, while monitoring for changes during her next exam. Patient was informed and verbally consented to the use of an ambient scribe for clinic note documentation during this visit. During our visit, I discussed her current management of undifferentiated connective tissue disease, emphasizing the importance of rheumatological follow- up and potential evaluation adjustments based on recent imaging findings. For dermatitis, I advised the application of a topical cream and lifestyle modifications to minimize exposure to aggravating factors such as certain clothing materials. I acknowledged her concerns regarding compression stockings and suggested strong stockings as a viable option while potentially providing symptom relief for lymphedema. We reviewed lifestyle strategies to address obesity, including nutritional and activity adjustments. I outlined a care plan that would ensure review and continuation of necessary medications with a clear understanding of financial constraints faced by the patient. Orders: Orders Vitamin D 25-OH Total Today E55.9 - Vitamin D deficiency, unspecified Complete Blood Count Auto Diff Today D64.9 - Anemia, unspecified IRON PROFILE Today D64.9 - Anemia, unspecified Lipid Panel Today E78.5 - Hyperlipidemia, unspecified Vitamin B12 and Folate Today E53.8 - Deficiency of other specified B group vitamins Comprehensive [place]. Panel Fast Today M19.071 - Primary osteoarthritis, right ankle and foot, M19.072 - Primary osteoarthritis, left ankle and foot Medications: New hydrocortisone 1% (Anti-Itch (hydrocortisone)) 1 appl topical TID PRN 28.4 grams 1RF skin irritation 2 weeks [compression stockings] As directed 2 ea 6RF I89.0 - Lymphedema, not elsewhere classified Refilled cetirizine 10 mg PO DAILY 90 tabs 0RF Patient Instructions: - Use the prescribed topical cream for neck dermatitis as directed. - Continue taking cetirizine as needed for allergy relief. - Avoid potential allergens, particularly fabric, and detergents. - Utilize stronger compression stockings for ongoing lymphedema management. - Engage in regular physical activity and dietary monitoring as strategies for managing obesity. - Attend the upcoming laboratory appointment for necessary health checks in August. - Follow up with rheumatology for any updates on disease management. - Monitor and report any new or worsening symptoms.
[2024-07-16 08:09] VITALS: BP 120/82; BMI 43.5
== END 2024-07-16 08:44 | disposition home or self-care (01) ==
LOC: HO.HMCH 08:06
PROVIDERS: PCP Internal Medicine; Visit Provider Internal Medicine
DX: M35.9 Systemic involvement of connective tissue, unspecified (principal); E66.01 Morbid (severe) obesity due to excess calories; Z68.41 Body mass index [BMI] 40.0-44.9, adult; I89.0 Lymphedema, not elsewhere classified; R21 Rash and other nonspecific skin eruption

== ENCOUNTER → 2024-07-16 08:05 | Outpatient (BNVA) | payer OTHER, SELFPAY | PROVIDERS: PCP Internal Medicine; Visit Provider Internal Medicine | DX: M35.9 Systemic involvement of connective tissue, unspecified (principal); I89.0 Lymphedema, not elsewhere classified; E66.01 Morbid (severe) obesity due to excess calories; Z68.41 Body mass index [BMI] 40.0-44.9, adult; R21 Rash and other nonspecific skin eruption | CPT/HCPCS: 96127 ==

== ENCOUNTER 2024-07-27 09:30 | Outpatient (AMB) | payer OTHER, SELFPAY ==
--- NOTE | 2024-07-27 09:43 | A.OFFVIS_ITS ---
Vital Signs 07/27/24 09:51 Height 5 ft 2 in Weight 235 lb 3.732 oz BMI 43.0 BP 140/82 H Blood Pressure Location Lt brachial Position Sitting Pulse 78 Pulse Source Pulse Oximeter Pulse Oximetry (%) 98 Oxygen Delivery Method Room Air Intake Visit Reasons: UCTD Intake Note: Patient presents for UCTD. C/O pain on RT ankle and often can't bear weight or walk on RT leg. Patient is requesting medication for the pain or MRI. Allergies Seasonal Allergies Allergy (Severe, Verified 07/27/24 09:50) Difficulty Breathing Medication List - Last Reconciled 07/27/24 by Kathia Alvarado MD albuterol sulfate 2.5 mg (3 mL) inhalation Q6H PRN 30 days albuterol sulfate 90 mcg/actuation 2 inhalations inhalation Q6H PRN 30 days budesonide-formoterol 160-4.5 mcg/actuation 2 puffs inhalation BID 90 days cetirizine 10 mg PO DAILY [compression stockings As directed] cyclobenzaprine 5 mg PO BEDTIME PRN 30 days diclofenac sodium 1% (Arthritis Pain (diclofenac)) 4 grams topical QID hydrocortisone 1% (Anti-Itch (hydrocortisone)) 1 appl topical TID PRN 2 weeks ibuprofen 400 - 800 mg (1 - 2 x 400 mg) PO BID ketoconazole 2% 1 appl topical DAILY 30 days montelukast (Singulair) 10 mg PO BEDTIME 90 days nebulizers As directed sertaconazole 2% (Ertaczo) 1 appl topical BID 30 days tirzepatide (weight loss) (Zepbound) 5 mg (0.5 mL) subcut QWEEK 4 weeks umeclidinium 62.5 mcg/actuation (Incruse Ellipta) 1 inh inhalation DAILY 30 days HPI Comments Details: Patient is a 54-year-old morbidly obese female with anxiety/depression, polyarticular osteoarthritis, and undifferentiated connective tissue disease here today for urgent visit for ankle pain Interval History: Patient last seen 06/08/2024 with me. At that time she had stopped her Plaquenil because she did not feel that it was helping. She complained of bilateral leg swelling as well as intermittent left ankle pain and burning. X-rays were done which showed no abnormalities and she was given topical diclofenac. Patient states that she used the topical diclofenac but only notes 30 minutes or so of improvement to her pain. She is here today for an urgent visit because she is concerned about the continued pain that prevents her from walking Rheumatologic History: dx UCTD 2018 (+ABNER, leukopenia, arthralgia) HCQ from 2018 to 2021. Repeat ABNER - ve 2021 HCQ restarted 07/2023 Current Rheumatology Medication(s): Topical diclofenac 1% [facility] Medical History (Updated 07/27/24 @ 15:35 by Kathia Alvarado MD) Mild episode of recurrent major depressive disorder Osteoarthritis of ankles, bilateral Lymphedema Physical exam Morbid obesity Abnormal Pap smear of cervix Bronchitis Pleuritic chest pain Venous insufficiency Osteopenia (~2019) Tubular adenoma of colon (~2016) Eosinophilia Chronic cough Vitamin D deficiency Vitamin B1 deficiency BMI 40.0-44.9, adult Cholelithiasis Right hip pain Abdominal bloating Asthma Lupus Hx of coronary artery disease History of asthma History of diastolic dysfunction Hx of varicose veins History of vitamin D deficiency Hx of hyperlipidemia Surgical History History of loop electrical excision procedure (LEEP) History of cardiac cath History of colonoscopy History of foot surgery History of hysteroscopy History of tubal ligation (~1992) History of ear surgery Family History Father Diabetes Cancer Colon cancer Paternal Grandfather Diabetes Maternal Aunt Cancer History of breast cancer Mother Sudden Sister Rheumatoid arthritis Hypothyroidism Sister Rheumatoid arthritis Sister No problems noted. Brother Diabetes Brother No problems noted. Son No problems noted. Daughter No problems noted. Daughter No problems noted. Daughter Lupus Social History Housing: House Alcohol intake: never Patient Tobacco Use Status: Never used Tobacco e-Cigarette/Vaping Use: Never Used Second Hand Smoke Exposure: No service: No Current occupational status: employed Current occupational exposures/hazards: No Sexual orientation: Straight/Heterosexual Gender identity: Female Cognitive needs: No Hearing needs: No Vision needs: Yes Review of Systems Const Details: Review of Systems Constitutional: Denies fever, chills, weight loss ENT: Denies vision changes, eye pain or eye redness, dental caries, dry mouth GI: Denies nausea, vomiting, diarrhea, abdominal pain, change in BM Pulm: Denies SOB, CH, hemoptysis, wheezing Cards: Denies chest pain, palpitations Skin: Denies Raynaud's, rash, nail changes, photosensitivity, DERMATOLOGY TEACHER: Denies headaches, weakness, paresthesias, recurrent falls MSK: as per HPI All other systems reviewed and are unremarkable except noted above Physical Exam Vital Signs: Last Vital Signs Pulse 78 07/27/24 09:51 BP 140/82 H 07/27/24 09:51 Pulse Ox 98 07/27/24 09:51 Oxygen Delivery Method Room Air 07/27/24 09:51 BMI result Body Mass Index 43.0 Vital signs reviewed Physical Examination CONSTITUITIONAL Patient alert and cooperative. Well appearing and in no apparent painful distress HEENT Conjunctiva and sclera clear. ?Pupils equal round and reactive to light. ?No lymphadenopathy. ? CHEST/RESPIRATORY SYSTEM Normal respiratory effort and able to speak in complete sentences. ?Clear to auscultation bilaterally. ?No crackles, rales, rhonchi, wheezes heard. CARDIAC SYSTEM Regular rate and rhythm. ?S1 and S2 heard no murmurs. 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 No deformities noted. ?No synovitis noted to the MCPs, PIPs or DIPs. ?No tenderness to palpation of these joints. Wrists: ?Full range of motion at the wrists without pain. ?No tenderness to palpation or synovitis noted to the wrists. Elbows: Full range of motion without pain. No tenderness, weakness, swelling, increased warmth or erythema. Shoulders: Full range of motion without pain. No tenderness, weakness, swelling, increased warmth or erythema. Hips: Full range of motion without pain. Hip bursa: No tenderness to palpation Knees: ?Full range of motion. ?No tenderness, swelling, increased warmth or erythema. Bilateral crepitations felt Ankles: Full range of motion. ?Bilateral soft tissue fullness noted to the lateral and medial malleoli Feet: ?Negative squeeze test. ?No tenderness to palpation or swelling of the MTPs. Tender points:?No tenderness to palpation of the bilateral trapezius, supraspinatus, greater trochanters, anterior costochondral junctions, bilateral gluteal areas, bilateral suboccipital muscle insertions SKIN Skin intact without rashes. Results Reviewed Results Reviewed: XR Left ankle 05/2024 FINDINGS: No fracture, dislocation, or suspicious bone lesion. Mild arthritis in the tibiotalar joint with subtle marginal spurs. The mortise is intact and normally aligned. The talar dome is normal. The subtalar joints appear normal. The calcaneus demonstrates small both dorsal and plantar spurs. There is diffuse soft tissue edema about the ankle and lower leg. IMPRESSION: 1. Soft tissue edema about the ankle and involving the lower leg. 2. No acute bony abnormalities of the ankle. Mild osteoarthritis of the ankle joint. XR Right ankle 05/2024 FINDINGS: No fracture, dislocation, or suspicious bone lesion. No malalignment. Ankle mortise is intact. The talar dome is normal. Subtalar joints are normal. The calcaneus is intact. Tiny plantar and dorsal calcaneal spurs. No evidence of ankle joint effusion. Relatively diffuse subcutaneous soft tissue edema of the lower leg and ankle. IMPRESSION: 1. No acute findings right ankle joint. 2. Diffuse subcutaneous soft tissue edema lower leg and ankle. Assessment & Plan Assessment & Plan (1) Osteoarthritis of ankles, bilateral: Code(s): M19.071 - Primary osteoarthritis, right ankle and foot; M19.072 - Primary osteoarthritis, left ankle and foot Category: Medical Qualifiers: Osteoarthritis type: primary Qualified Code(s): M19.071 - Primary osteoarthritis, right ankle and foot; M19.072 - Primary osteoarthritis, left ankle and foot Plan: #Bilateral ankle OA Patient with bilateral ankle osteoarthritis here today for urgent visit for ankle pain. Discussed with patient that osteoarthritis leads to abnormal loading of the muscles and tendons surrounding the joint which can lead to tendonitis and muscle spasms. We will try gabapentin to see if this helps with her pain. Also sent to PT Plan - Gabapentin 100mg nightly for 2 weeks then 100mg bid - Refer to PT - RTC 09/20/24 for UCTD follow up Plan I spent 20 minutes reviewing the record and labs, taking a history, examining the patient, discussing the treatment plan, ordering diagnostic work up and documenting in the medical record Orders: Orders PT Evaluation and Treatment Today M19.071 - Primary osteoarthritis, right ankle and foot, M19.072 - Primary osteoarthritis, left ankle and foot Medications: New 2 gabapentin 100 mg PO BID 180 caps 1RF M19.071 - Primary osteoarthritis, right ankle and foot, M19.072 - Primary osteoarthritis, left ankle and foot, M35.9 - Systemic involvement of connective tissue, unspecified Coding Level of Care Code Est Pt Level 3 (58552) Diagnoses Primary osteoarthritis of both ankles M19.071; M19.072 Osteoarthritis type: primary
[2024-07-27 09:51] VITALS: BP 140/82; PULSE 78; O2SAT 98; BMI 43.0
== END 2024-07-27 10:19 | disposition home or self-care (01) ==
LOC: HO.RHE 09:31
PROVIDERS: PCP Internal Medicine; Visit Provider Student in an Organized Health Care Education/Training Program
DX: M19.071 Primary osteoarthritis, right ankle and foot (principal); M19.072 Primary osteoarthritis, left ankle and foot
CPT/HCPCS: 99213

== ENCOUNTER → 2024-07-27 09:30 | Outpatient (BNVA) | payer OTHER, SELFPAY | PROVIDERS: PCP Internal Medicine; Visit Provider Student in an Organized Health Care Education/Training Program ==

== ENCOUNTER 2024-09-21 07:04 | Outpatient (RCR) | payer OTHER, SELFPAY ==
--- NOTE | 2024-11-29 08:51 | MHC.PT.DC ---
[facility] [place] Office [place] Office [place] Office [address] Lizzy Garcia [address] [phone] F: [phone] F: [phone] F: [phone] F: [phone] Physical Therapy Discharge Report Diagnosis: MAN ANKLE PAIN (KP) Date of Surgery: Date of Evaluation: 08/21/24 Date of Discharge: 10/04/24 Treatments to Date: 6 Cancellations to Date: 4 No Shows to Date: 0 Discharge Status: Patient Elected to Stop Physician Discontinued Tx Discharge Summary: Pt had been progressing well in PT and had progressed with activities out of boot. Calf musculature with cont tissue tension and challenged with performing toe break at terminal stance. Pt phoned stating MD Farrell/Dante her from PT, reason unknown. She has cancelled all remaining appointments. Electronically signed by: Ny Mitchell PT DPT Please sign and return to therapist. Thank you for your referral.
== END 2024-11-29 08:55 | disposition home or self-care (01) ==
LOC: HO.PT 07:04
PROVIDERS: Absent Provider Orthopaedic Surgery Foot and Ankle Surgery; PCP Internal Medicine; Visit Provider Student in an Organized Health Care Education/Training Program
DX: M19.072 Primary osteoarthritis, left ankle and foot (principal); M19.071 Primary osteoarthritis, right ankle and foot
CPT/HCPCS: 97035; 97110; 97161; 97530; 97535

== ENCOUNTER 2024-12-11 06:50 | Outpatient (REF) | payer OTHER, SELFPAY ==
[2024-12-11 07:05] LABS: MANUAL DIFF FLAG NO
[2024-12-11 07:20] LABS: Hematocrit 39.7 % (37.0-47.0); Hemoglobin 13.0 g/dl (12.0-16.0); Imm Gran Abs Auto 0.04 X10*3/uL (0.00-0.03); Imm Gran Pct Auto 0.4 % (0.0-0.4); Lymphocytes Absolute Auto 2.3 X10*3/uL (1.2-4.9); Mean Corpuscular HGB Conc 32.7 g/dl (31.0-35.0); Mean Corpuscular Hemoglobin 27.7 pg (27.0-33.0); Mean Corpuscular Volume 84.5 fL (80.0-98.0); NRBC Abs Auto 0.000 X10*3/uL (0.0-0.012); NRBC Pct Auto 0.0 /100WBC (0.0-0.2); Platelet Count 157 X10*3/uL (160-400); Red Blood Count 4.70 X10*6/uL (4.20-5.50); White Blood Count 8.9 X10*3/uL (4.8-10.8)
[2024-12-11 07:58] LABS: Alanine Aminotransferase 21 U/L (0-31); Albumin Level 4.1 g/dL (3.5-5.0); Alkaline Phosphatase 130 U/L (39-117); Anion Gap 11 (12-20); Aspartate Amino Transferase 21 U/L (5-31); Blood Urea Nitrogen 9 mg/dL (9-16); Calcium 9.3 mg/dL (8.4-10.2); Carbon Dioxide 26 mmol/L (22-29); Chloride 109 mmol/L (96-108); Cholesterol 183 mg/dL (<200); Estimated Glomerular Filt Rate > 60; HDL Cholesterol 45 mg/dL (>40); Iron 48 mcg/dL (30-160); Percent Iron Saturation 19 % (15-50); Potassium 4.4 mmol/L (3.3-5.1); Sodium 142 mmol/L (135-145); Total Iron Binding Capacity 253 mcg/dL (228-428); Total Protein 6.9 g/dL (6.5-8.0); Triglycerides 91 mg/dL (<150); Unsaturated Iron Binding 205 ug/dL
[2024-12-11 08:23] LABS: Folate 9.3 ng/mL (> or = 4.0); Vitamin B12 690 pg/mL (200-900)
== END 2024-12-11 06:51 | disposition home or self-care (01) ==
LOC: HO.LAB 06:50
PROVIDERS: PCP Internal Medicine; Visit Provider Internal Medicine
DX: Z01.818 Encounter for other preprocedural examination (principal); I89.0 Lymphedema, not elsewhere classified; E53.8 Deficiency of other specified B group vitamins; E55.9 Vitamin D deficiency, unspecified; D64.9 Anemia, unspecified; E78.5 Hyperlipidemia, unspecified
CPT/HCPCS: 36415; 80053; 80061; 82306; 82607; 82746; 83540; 85025

== ENCOUNTER 2024-12-17 16:41 | Outpatient (AMB) | payer OTHER, SELFPAY ==
[2024-12-17 16:43] VITALS: BP 120/72; PULSE 78; RESP 18; TEMP 36.3; O2SAT 98; BMI 44.7
--- NOTE | 2024-12-17 16:43 | MHC.PC.OV ---
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 Required: No Accompanied by: Self / Same As Patient Allergies Seasonal Allergies Allergy (Severe, Verified 12/17/24 17:01) Difficulty Breathing semaglutide (From Wegovy) Adverse Reaction (Intermediate, Verified 12/17/24 17:09) Diarrhea Medication List - Last Reconciled 12/17/24 by Karrie Morris MD albuterol sulfate 2.5 mg (3 mL) inhalation Q6H PRN 30 days albuterol sulfate 90 mcg/actuation 2 inhalations inhalation Q6H PRN 30 days budesonide-formoterol 160-4.5 mcg/actuation 2 puffs inhalation BID 90 days bupropion HCl XL 150 mg PO QAM 90 days [compression stockings As directed] cyclobenzaprine 5 mg PO BEDTIME PRN 30 days diclofenac sodium 1% (Arthritis Pain (diclofenac)) 4 grams topical QID furosemide 20 mg PO DAILY 90 days gabapentin 100 mg PO BID hydrocortisone 1% (Anti-Itch (hydrocortisone)) 1 appl topical TID PRN 2 weeks ibuprofen 400 - 800 mg (1 - 2 x 400 mg) PO BID ketoconazole 2% 1 appl topical DAILY 30 days montelukast (Singulair) 10 mg PO BEDTIME 90 days naltrexone 50 mg PO DAILY 90 days nebulizers As directed sertaconazole 2% (Ertaczo) 1 appl topical BID 30 days umeclidinium 62.5 mcg/actuation (Incruse Ellipta) 1 inh inhalation DAILY 30 days Tobacco use date assessed: 12/17/24 Dental Screening Dental Screen Date: 12/17/24 Did you have a dental visit in the last 12 months?: Yes Did you have a dental problem in the last 6 months where you did not have access to dental care?: No Was dental information given to patient?: Patient has dentist HPI HPI Comments History of Present Illness Details The patient is a 54-year-old female presenting for an annual physical examination. She has a history of prediabetes, with a fasting blood glucose level of 115 mg/dL noted during recent laboratory tests. Her cholesterol level is 183 mg/dL with an LDL of 120 mg/dL. The patient is also marked as obese with a BMI of 44.7, and she has been advised to engage in diet and exercise to manage her weight. She has a vitamin D level of 25.7 ng/mL, which is below the recommended level, and supplementation has been suggested. Her preventative care measures include a colonoscopy performed in 2021 due to a family history of colon cancer, with the next one recommended in 2026. She is up to date with her pneumonia vaccine and had a Tdap vaccine in 2018, with the next one due in 2028. Her last mammogram in December of the previous year was normal, and a Pap smear in 2022 detected HPV. [facility] Medical History (Updated 12/17/24 @ 17:20 by Karrie Morris MD) Mild episode of recurrent major depressive disorder Osteoarthritis of ankles, bilateral Lymphedema Physical exam Morbid obesity Abnormal Pap smear of cervix Bronchitis Pleuritic chest pain Venous insufficiency Osteopenia (~2019) Tubular adenoma of colon (~2016) Eosinophilia Chronic cough Vitamin D deficiency Vitamin B1 deficiency BMI 40.0-44.9, adult Cholelithiasis Right hip pain Abdominal bloating Asthma Lupus Hx of coronary artery disease History of asthma History of diastolic dysfunction Hx of varicose veins History of vitamin D deficiency Hx of hyperlipidemia Surgical History History of loop electrical excision procedure (LEEP) History of cardiac cath History of colonoscopy History of foot surgery History of hysteroscopy History of tubal ligation (~1992) History of ear surgery Family History Father Diabetes Cancer Colon cancer Paternal Grandfather Diabetes Maternal Aunt Cancer History of breast cancer Mother Sudden Sister Rheumatoid arthritis Hypothyroidism Sister Rheumatoid arthritis Sister No problems noted. Brother Diabetes Brother No problems noted. Son No problems noted. Daughter No problems noted. Daughter No problems noted. Daughter Lupus Social History Housing: House Alcohol intake: never Patient Tobacco Use Status: Never used Tobacco e-Cigarette/Vaping Use: Never Used Second Hand Smoke Exposure: No service: No Current occupational status: employed Current occupational exposures/hazards: No Sexual orientation: Straight/Heterosexual Gender identity: Female Cognitive needs: No Hearing needs: No Vision needs: Yes Questionnaire PHQ-9 Over the last 2 weeks, how often have you been bothered by any of the following problems? 1. Little interest or pleasure in doing things: not at all 2. Feeling down, depressed, or hopeless: not at all 3. Trouble falling or staying asleep, or sleeping too much: not at all 4. Feeling tired or having little energy: not at all 5. Poor appetite or overeating: not at all 6. Feeling bad about yourself - or that you are a failure or have let yourself or your family down: not at all 7. Trouble concentrating on things, such as reading the newspaper or watching television: not at all 8. Moving or speaking so slowly that other people could have noticed. Or the opposite - being so fidgety or restless that you have been moving around a lot more than usual: not at all 9. Thoughts that you would be better off or of hurting yourself in some way: not at all Total score: 0 Depression Screening Interpretation: Negative Depression Screening Done: Yes 89478 - PHQ-9 Billing: Yes Source: Developed by Drs. Geovany Medaows, Marcella Rodriguez, Chapo Newton and colleagues, with an educational karey from [employer]. Thrive Questionnaire Date Thrive assessed: 12/17/24 AUDIT C Alcohol Use Questionnaire (AUDIT-C) 1. How often do you have a drink containing alcohol?: Never Total Score: 0 Score Reviewed/Action Taken: No JANELL-7 AMB Questionnaire JANELL-7 Date JANELL - 7 assessed: 12/17/24 Feeling nervous, anxious, or on edge: 0 = Not at all Not being able to stop or control worryin = Not at all Worrying too much about different things: 0 = Not at all Trouble relaxin = Not at all Being so restless that it is hard to sit still: 0 = Not at all Becoming easily annoyed or irritable: 0 = Not at all Feeling afraid as if something awful might happen: 0 = Not at all Total JANELL-7 score (0-4 normal; 5-9 mild; 10-14 moderate; 15-21 severe): 0 Source: Developed by Drs. Geovany Meadows, Marcella Rodriguez, Chapo Newton and colleagues, with an educational karey from [employer]. JANELL-7 Assessment Billing JANELL-7 Assessment Tool: JANELL-7 Assessment 11925 Review of Systems Const All systems reviewed & are unremarkable except as noted in HPI and below Card Denies chest pain at rest, Denies chest pain with activity, Denies edema, Denies irregular heart rhythm, Denies claudication, Denies dyspnea, Denies dyspnea on exertion, Denies orthopnea, Denies paroxysmal nocturnal dyspnea and Denies slow heart rate Resp Denies cough, Denies dyspnea and Denies dyspnea on exertion GI Denies abdominal pain, Denies change in bowel habits, Denies excessive flatus, Denies nausea and Denies vomiting Denies urinary incontinence, Denies urinary hesitancy and Denies urinary urgency Musc Denies abnormal gait, Denies atrophy, Denies deformity and Denies limited range of motion Skin/Breast Denies bleeding lesions, Denies changing lesions and Denies rash Neuro Denies abnormal gait, Denies behavioral changes and Denies lack of coordination Psych Denies behavioral changes Physical exam (Primary Care) Vital Signs: Last Vital Signs Temp 97.3 F 12/17/24 16:43 Pulse 78 12/17/24 16:43 Resp 18 12/17/24 16:43 BP 120/72 12/17/24 16:43 Pulse Ox 98 12/17/24 16:43 Oxygen Delivery Method Room Air 12/17/24 16:43 BMI result Body Mass Index 44.7 Tobacco/Smoking Status: Tobacco use Status Tobacco use date assessed 12/17/24 12/17/24 16:51 Patient Tobacco Use Status Never used Tobacco 12/17/24 16:51 e-Cigarette/Vaping Use Never Used 12/17/24 16:51 PHQ-9: PHQ-9 Score PHQ-9: Total score 0 12/17/24 17:04 Depression Screening Interpretation: Negative Thrive Assessment: Date of Thrive Assessment Date Thrive assessed 12/17/24 12/17/24 16:51 HENMT Head: Yes normal to inspection, Yes normocephalic and Yes atraumatic Ears: external ears normal Eyes General: appearance normal, both eyes and all related structures Eyelids: Yes eyelids normal Conjunctivae: conjunctivae normal Neck Neck: Yes normal visual inspection and Yes supple Resp Effort & Inspection: normal respiratory effort Auscultation: clear to auscultation bilaterally Cardio Jugular venous distension: no JVD Rate: regular rate Rhythm: regular rhythm Heart sounds: S1 normal heart sound present and S2 normal heart sound present GI Inspection: Yes normal to inspection Palpation (GI): Soft to palpation and nontender Auscultation: normal bowel sounds Skin General skin exam: no rashes or lesions noted Neuro General: no focal motor deficits Extrem General: Yes full ROM Psych Appearance: grossly normal Coding Level of Care Code Est Pt Level 3 (44936) Est Pt Prev Care 40-64y(52308) Diagnoses Physical exam Z00.00 Undifferentiated connective tissue disease M35.9 Morbid obesity E66.01 Additional Codes JANELL-7 Assessment Billing - JANELL-7 Assessment Tool: JANELL-7 Assessment 08166 ([id number]) PHQ-9 - 23661 - PHQ-9 Billing: Yes ([id number]) Time Spent (min) 33 Assessment & Plan Assessment & Plan (1) Physical exam: Code(s): Z00.00 - Encounter for general adult medical examination without abnormal findings Category: Medical (2) Undifferentiated connective tissue disease: Comment: dx UCTD 2019 (+KARRIE, leukopenia, arthralgia) HCQ from 2019 to 2021. Repeat KARRIE -ve 2021 HCQ restarted 07/2023 - 01/2024 Code(s): M35.9 - Systemic involvement of connective tissue, unspecified Category: Medical (3) Morbid obesity: Code(s): E66.01 - Morbid (severe) obesity due to excess calories Category: Medical Plan Repeat in a year. Start Bupropion and Naltrexone for morbid obesity. Orders: Orders Comprehensive [place]. Panel Fast Today R73.02 - Impaired glucose tolerance (oral) Medications: New cholecalciferol (vitamin D3) 25 mcg PO DAILY 90 caps 1RF 90 days Refilled bupropion HCl XL 150 mg PO QAM 90 tabs 1RF 90 days naltrexone 50 mg PO DAILY 90 tabs 1RF 90 days
== END 2024-12-17 17:22 | disposition home or self-care (01) ==
LOC: HO.HMCH 16:42
PROVIDERS: PCP Internal Medicine; Visit Provider Internal Medicine
DX: Z00.00 Encounter for general adult medical examination without abnormal findings (principal); M35.9 Systemic involvement of connective tissue, unspecified; E66.01 Morbid (severe) obesity due to excess calories; Z68.41 Body mass index [BMI] 40.0-44.9, adult

== ENCOUNTER → 2024-12-17 16:41 | Outpatient (BNVA) | payer OTHER, SELFPAY | PROVIDERS: PCP Internal Medicine; Visit Provider Internal Medicine | DX: Z00.00 Encounter for general adult medical examination without abnormal findings (principal); R73.03 Prediabetes; E66.9 Obesity, unspecified; M35.9 Systemic involvement of connective tissue, unspecified; E66.01 Morbid (severe) obesity due to excess calories; R73.02 Impaired glucose tolerance (oral); Z68.41 Body mass index [BMI] 40.0-44.9, adult | CPT/HCPCS: 96127 ==

== ENCOUNTER 2025-01-26 07:23 | Outpatient (REF) | payer OTHER, SELFPAY | END 2025-01-26 07:24 | disposition home or self-care (01) | LOC: HO.MAMMO 07:23 | PROVIDERS: PCP Internal Medicine; Visit Provider Internal Medicine | DX: Z12.31 Encounter for screening mammogram for malignant neoplasm of breast (principal) | CPT/HCPCS: 77063; 77067 ==

== ENCOUNTER → 2025-01-26 07:45 | Outpatient (BNV) | payer OTHER, SELFPAY | PROVIDERS: PCP Internal Medicine; Visit Provider Internal Medicine | DX: Z12.31 Encounter for screening mammogram for malignant neoplasm of breast (principal) | CPT/HCPCS: 77063; 77067 ==

== ENCOUNTER 2025-02-27 13:38 | Outpatient (REF) | payer OTHER, SELFPAY ==
--- NOTE | ~2025-02-27 | MM_ITS ---
EXAMINATION: MM DIAGNOSTIC DIGITAL BREAST TOMOSYNTHESIS, RIGHT Right limited ultrasound. CLINICAL INFORMATION: Call back from screening for right breast asymmetries. COMPARISON: Mammography: Pri[facility] on PACS. TECHNIQUE: Digital breast tomosynthesis is performed in both the craniocaudal and mediolateral oblique views along with computer-aided detection (CAD). Synthesized 2D images are generated from the tomosynthesis. FINDINGS: The breasts are heterogeneously dense, which may obscure small masses. Previously seen asymmetries in the right breast appear not significantly changed and slightly less conspicuous similar-appearing to prior mammograms dating back to November 2021. No suspicious calcifications or other abnormal findings. Targeted color Doppler ultrasound scanning in the superior breast and medial breast from 11 4:00 demonstrates normal fibroglandular breast tissue. There is an incidental minimally complicated 2 simple cyst at 11:00 4 cm from the nipple measuring 7 x 5 x 3 mm which correlates with the circumscribed oval mass seen on mammography and is benign. MM/MM tomosynthesis added views R IMPRESSION: Right asymmetries are less conspicuous on additional imaging today it has not significantly changed from prior mammograms dating back to 2021. Minimally complicated cyst in the right breast 11:00 4 cm from the nipple on ultrasound. Benign. ASSESSMENT: BI-RADS Category 2: Benign RECOMMENDATION: 1 year F/U Results were provided to the patient at time of visit by the technologist. This patient's information was entered into a reminder system with a target due date for their next mammogram. Electronically signed by: Anita Hein DO 02/27/2025 03:03 PM ALFIE
--- OUTSIDE RECORDS SUMMARY | 2025-02-27 16:32 | XMS_ITS | Data Portability ---
Author Organization [facility], KENDALL Cordero Address [address] [place] [address] Care Team Providers Care Ice Sculptor Name Role Phone ABNER VALVERDE Primary Care Provider Assessment Encounter Date Assessment Date Assessment LastModified by Organization Details LastModified Time 08/21/2024 08/21/2024 ICD-10: Right posterior tibial tendon dysfunction, bilateral pes planus CHIEF COMPLAINT: Right foot and ankle pain HISTORY OF PRESENT ILLNESS: Gisel is a very pleasant 54-year-old here today with her daughter who helps with Bahraini translation who is experienced more than one year of right medial ankle and hindfoot pain and swelling. She denies any known injury or inciting event. She has been taking ibuprofen and has been stretching. She describes a stretching and burning sensation over her medial ankle as well as a pinching sensation. She has not tried bracing or orthotics. She has swelling of her bilateral lower extremities due to lymphedema but denies any pain about her left foot or ankle. She is here today to discuss treatment options. Past family, medical, social history and review of systems has been reviewed, updated and is located in the patient s chart. She takes Wegovy among other medications. PHYSICAL EXAM: General: obese, healthy appearing, in no acute distress Psych: alert and oriented x3, normal mood Skin: intact without ulceration or lesion, normal turgor Lungs: respirations unlabored Cardiac: heart rate regular, normal peripheral pulses Musculoskeletal: On standing exam, she has bilateral pes planus with increased hindfoot valgus on the right side. She is not able to single limb heel rise on the right side secondary to pain and weakness. Her gait is antalgic on the right. On seated exam, she is tender over the right medial ankle and hindfoot along her posterior tibial tendon. There is pain and weakness with resisted hindfoot inversion. There is no tenderness over the sinus tarsi or anterior ankle joint line. Her ankle is stable. She has bilateral gastrocnemius contractures. She is distally neurovascularly intact. X-RAYS: Five standing views of the bilateral feet and ankles were ordered, obtained and reviewed by me today at [facility], demonstrating pes planovalgus with significant sag in Meary's line on lateral view, more so on the right side. There is mild right lateral talonavicular uncovering. Her ankle mortise is congruent. There is hindfoot valgus. There is some midfoot arthritic change. IMPRESSION: Right posterior tibial tendon dysfunction, bilateral pes planus PLAN: I discussed these findings with Gisel and her daughter. I explained that she has posterior tibial tendon dysfunction (stage II). I recommended trial of OTC orthotics along with a Tayco external ankle brace as I believe it will be difficult for her to fit a brace inside her shoe given her lymphedema. I have also recommended physical therapy focusing on a posterior tibial tendon dysfunction protocol. She will follow up in 6-8 weeks for reevaluation to ensure that she is improving. If she fails to improve, I would recommend an MRI of the right ankle for further evaluation of the posterior tibial tendon. If conservative measures fail, she would require a stage II flatfoot reconstruction. All questions were answered. The patient is ambulatory, but has weakness and/or instability of their extremity which requires stabilization from this semi-rigid/rigid orthosis to improve their function. Verbal and written instructions for the use and application of this item were given. Patient was instructed that should the brace result in increased pain, decreased sensation, increased swelling or an overall worsening of their medical condition, to please contact our office immediately. Not available 08/21/2024 14:39:36 10/02/2024 10/02/2024 ICD-10: Right posterior tibial tendon dysfunction, bilateral pes planus CHIEF COMPLAINT: Right foot and ankle pain HISTORY OF PRESENT ILLNESS: Gisel is a very pleasant 54-year-old here today with her daughter who helps with Bahraini translation who has experienced more than one year of right medial ankle and hindfoot pain and swelling. I first met her on 08/21/24, 6 weeks ago. She denies any known injury or inciting event. She has been taking ibuprofen and has been stretching. She describes a stretching and burning sensation over her medial ankle as well as a pinching sensation. I recommended a Tayco external ankle brace and this has been very helpful. She has less pain when walking with the brace but is not able to walk without the brace without significant pain. She has been doing physical therapy. She has swelling of her bilateral lower extremities due to lymphedema but denies any pain about her left foot or ankle. She is here today to discuss treatment options including surgery. Some days are worse than others and today is a bad day. She has not been successful in losing weight and weight loss medications have caused diarrhea. Past family, medical, social history and review of systems has been reviewed, updated and is located in the patient s chart. She takes Wegovy among other medications. PHYSICAL EXAM: General: 5'2 , obese, healthy appearing, in no acute distress Psych: alert and oriented x3, normal mood Skin: intact without ulceration or lesion, normal turgor Lungs: respirations unlabored Cardiac: heart rate regular, normal peripheral pulses Musculoskeletal: On standing exam, she has bilateral pes planus with increased hindfoot valgus on the right side. She is not able to single limb heel rise on the right side secondary to pain and weakness. Her gait is antalgic on the right. On seated exam, she is tender over the right medial ankle and hindfoot along her posterior tibial tendon. There is pain and weakness with resisted hindfoot inversion. There is no tenderness over the sinus tarsi or anterior ankle joint line. Her ankle is stable. She has bilateral gastrocnemius contractures. She is distally neurovascularly intact. X-RAYS: Recent x-ray images were reviewed, demonstrating pes planovalgus with significant sag in Meary's line on lateral view, more so on the right side. There is mild right lateral talonavicular uncovering. Her ankle mortise is congruent. There is hindfoot valgus. There is some midfoot arthritic change. IMPRESSION: Right posterior tibial tendon dysfunction, bilateral pes planus PLAN: I discussed these findings with Gisel and her daughter. She has failed conservative measures. I have recommended an MRI of the right ankle to further evaluate her posterior tibial tendon, spring ligament and ankle and hindfoot joints to assess the severity of arthritis. I will follow up with them by telephone to discuss the MRI results and to determine the next step in treatment. If she reaches a symptomatic tipping point, I would recommend a stage II flatfoot reconstruction with FDL transfer to the navicular, medializing calcaneal osteotomy, gastrocnemius recession, possible Cotton osteotomy and possible spring ligament repair. If there is arthritis on her MRI, a triple arthrodesis may be a more reliable treatment option. I encouraged weight loss through dietary modification. All questions were answered. Not available 10/02/2024 15:52:39 11/01/2024 11/01/2024 Telemedicine Telephone Encounter Patient Location: Home Physician Location: [place], [place] Office Time spent with patient: 16 minutes (including MRI review) ICD-10: Right posterior tibial tendinitis, midfoot arthritis, bilateral pes planus, morbid obesity CHIEF COMPLAINT: Right foot and ankle pain HISTORY OF PRESENT ILLNESS: Gisel is a very pleasant 54-year-old woman who I am speaking with today by telephone for MRI review. I last saw her 1 month ago. We recall that she has experienced more than one year of right medial ankle and hindfoot pain and swelling. I first met her on 08/21/24. She denies any known injury or inciting event. She has been taking ibuprofen and has been stretching. She describes a stretching and burning sensation over her medial ankle as well as a pinching sensation. I [facility] and this has been very helpful. She has also been wearing OTC orthotics. She has not been able to find tolerable shoes. She is doing better than she was when I last saw her. She has been doing physical therapy. She has swelling of her bilateral lower extremities due to lymphedema but denies any pain about her left foot or ankle. She has not been successful in losing weight and weight loss medications have caused diarrhea. Past family, medical, social history and review of systems has been reviewed, updated and is located in the patient s chart. She takes Wegovy among other medications. PHYSICAL EXAM: deferred Based on my physical exam from 10/02/24: General: 5'2 , obese, healthy appearing, in no acute distress Psych: alert and oriented x3, normal mood Skin: intact without ulceration or lesion, normal turgor Lungs: respirations unlabored Cardiac: heart rate regular, normal peripheral pulses Musculoskeletal: On standing exam, she has bilateral pes planus with increased hindfoot valgus on the right side. She is not able to single limb heel rise on the right side secondary to pain and weakness. Her gait is antalgic on the right. On seated exam, she is tender over the right medial ankle and hindfoot along her posterior tibial tendon. There is pain and weakness with resisted hindfoot inversion. There is no tenderness over the sinus tarsi or anterior ankle joint line. Her ankle is stable. She has bilateral gastrocnemius contractures. She is distally neurovascularly intact. X-RAYS: Recent x-ray images were reviewed, demonstrating pes planovalgus with significant sag in Meary's line on lateral view, more so on the right side. There is mild right lateral talonavicular uncovering. Her ankle mortise is congruent. There is hindfoot valgus. There is some midfoot arthritic change. MRI: Her MRI images were independently reviewed, demonstrating arthritic change about her naviculocuneiform and second through fourth TMT joints, intact posterior tibial tendon without tear or tendinopathy. IMPRESSION: Right posterior tibial tendinitis, midfoot arthritis, bilateral pes planus, morbid obesity PLAN: I discussed these findings with Gisel by telephone. Her MRI is reassuring. When I last examined her, I felt her pain and tenderness were over the posterior tibial tendon. Her MRI does not demonstrate any significant posterior tibial tendon pathology. There may be some stretch on the tendon in the setting of pes planovalgus. I believe her biggest issue is significant arthritis creating a midfoot flatfoot. I have recommended she continue with her orthotics and [facility] ankle brace. I have suggested orthopedic shoes from either [employer] or [employer]. I have recommended weight loss through dietary modification and low impact exercise. She will follow up in 8 weeks for reevaluation. If pain persists, we may consider a selective fluoroscopic guided midfoot cortisone injection. If conservative measures fail, she would like to require a flap reconstruction with midfoot fusion and possible medializing calcaneal osteotomy. All questions were answered. This visit was a real-time Telemedicine interaction between a physician in a medical office and patient from their home. The totality of the communication of information exchanged between the physician (myself) and the patient during the course of the synchronous telemedicine service was sufficient to meet the logan components and/or requirement of the same service when rendered via a eutl-om-rwgr interaction. I discussed with the patient the risks and benefits of telemedicine services and the patient consented to the receipt of such telemedicine services. Not available 11/01/2024 16:42:03 Plan of Treatment Reminders Order Date Submit Date Provider Last Modified By Organization Details Last Modified Time Details Appointments None recorded. Lab None recorded. Referral physical therapist referral - Dx: Right posterior tibial tendon dysfunctio n, bilateral pes planus 2024 025 [email or web address] Not available 12:48:44 Procedures None recorded. Surgeries None recorded. Imaging MRI, ankle, w/o contrast - Right ankle pain -- eval posterior tibial tendon, ligaments, & ankle + hindfoot arthritis 2024 025 HAKAN [facility], [address], [address], [place], [address], 13:02:36 XR, ankle + foot - room [address] [place] 3v foot 2v ankle wb 2024 025 [email or web address] [facility], [address], [place], [address], 12:48:44 Medication Orders None recorded. Patient TargetsNo targets recorded. Patient InstructionsNo instructions recorded. Reason for Referral Physical Therapist Referral for Dysfunction of posterior tibial tendon of right foot Dx: Right posterior tibial tendon dysfunction, bilateral pes planus Referring Physician: Sid Wasserman, Orthopedic Surgery, Encounter Date: 08/21/2024 Results Created Date Observation Date Name Description Value Unit Range Abnormal Flag Note LastModifiedBy Organization Detail LastModifiedTime 08/22/19 25 08/21/2024 XR, ankle + foot http:/ [email or web address] ?Encry pted=s hAaTro YD8dLq bEUv6g %2BXZw aYqtaq 0bqfl% 2Fg9IQ a4ajBk vP9nXo QUaueC m3YtLR FvZlgJ JJ8mAn HZtai3 5i7518 AC0Kla n%2BDV aqvKiQ trMwF INTERFACE [facility] Office [address], [place], [address], 08/21/2024 14:21:35 08/22/19 25 08/21/2024 XR, ankle + foot http:/ [email or web address] ?Encry pted=s hAaTro YD8dLq bEUv6g %2BXZw aYqtaq 0bqfl% 2Fg9IQ a4ajBk vP9nXo QUaueC m3YtLR FvZlgJ JJ8mAn HZtai3 4e6871 AC0Kla n%2BDV aqvKiQ trMwF INTERFACE [facility] Office [address], [place], [address], 08/21/2024 14:21:37 10/30/19 25 10/22/2024 MRI, ankle , w/o contr ast No observ ation record ed. [facility] [address], [place], [address], 10/30/2024 06:49:44 Result Notes Documentation Provider Name and Address Organization Details Recorded Time Xr, Ankle + Foot : [email or web address] Encrypted=plQqBgxVP7rRjgT Uv6g%0FTRimNhpzm4ajxh%2Fg 8YTk0laHiqS0cKsIJzjaHe1Ah WHQmTpiHEO5aDcFRqrn82z086 5HV6Hcrn%2BDVaqvKiQtrMwF Not Available [facility] 08/21/2024 14:2 1:35 Xr, Ankle + Foot : [email or web address] Encrypted=lhSaXwlRI9bNhoB Uv6g%8GKAvzMwroi6eryk%2Fg 6ITo2awUqlV3xTpHNxprJo2Yz QJZyRsjYIY2wBzYMbuv90i235 6AC1Nkuz%2BDVaqvKiQtrMwF Not Available [facility] 08/21/2024 14:2 1:37 Problems Name Problem SNOMED Code Status Onset Date Resolution Date Notes Provider Name and Address Organization Details Recorded Time Acquired pes planus [id number] Active 2024 Sid Wasserman MD [address], [facility] [place], [address], [facility] 5 16:42:14 Arthritis of right foot 82825182119128 04 Active 2024 Sid Wasserman MD [address], [place], [address], [facility] 5 16:42:20 Problem Notes None recorded. Medical Equipment None Reported. Medications Name Sig Start Date Stop Date Status Note LastModified by Organization Details LastModified Time doxycycline hyclate 100 mg capsule TAKE 1 CAPSULE BY MOUTH TWICE A DAY FOR 10 DAYS active Not Available Not Available No t Available cetirizine 10 mg tablet TAKE 1 TABLET BY MOUTH EVERY DAY FOR 30 DAYS active Not Available Not Available No t Available prednisone 20 mg tablet TAKE 2 TABLETS BY MOUTH DAILY FOR 5 DAYS THEN TAKE 1 TABLET DAILY FOR 5 DAYS active Not Available Not Available No t Available tramadol 50 mg tablet TAKE 1 TABLET BY MOUTH EVERY 6 HOURS NEEDED FOR PAIN active Not Available Not Available No t Available ketorolac 10 mg tablet TAKE 1 TABLET BY MOUTH EVERY 8 HOURS NEEDED FOR PAIN *MAX DURATION IS 5 DAYS* active Not Available Not Available No t Available prednisolone acetate 1 % eye drops,suspen radha PLACE 1 DROP INTO RIGHT EYE 4 TIMES DAILY FOR 7 DAYS active Not Available Not Available N ot Available calcium 500 mg (as calcium carbonate 1,250 mg) tablet TAKE 1 TABLET ORALLY 2 TIMES A DAY FOR 90 DAYS active Not Available Not Available Not Available erythromycin 5 mg/gram (0.5 %) eye ointment APPLY 1 A SMALL AMOUNT ON EYELID FOUR TIMES A DAY APPLY TO INCISION SITES FOR 1WEEK active Not Available Not Available No t Available neomycin-hannah ymyxin-dexam eth 3.5 mg/mL-10,000 unit/mL-0.1% eye drops INSTILL 1 DROP INTO BOTH EYES FOUR TIMES A DAY USE FOR TWO WEEKS THEN STOP active Not Available Not Available No t Available ibuprofen 400 mg tablet TAKE 1 TO 2 TABLETS BY MOUTH TWICE A DAY active Not Available Not Available No t Available montelukast 10 mg tablet TAKE 1 TABLET ORALLY AT BEDTIME FOR 90 DAYS active Not Available Not Available No t Available furosemide 20 mg tablet TAKE 1 TABLET BY MOUTH EVERY DAY NEEDED FOR EDEMA active Not Available Not Available No t Available gabapentin 100 mg capsule TAKE 1 CAPSULE BY MOUTH TWICE A DAY active Not Available Not Available No t Available hydroxychlor oquine 200 mg tablet TAKE 1 TABLET BY MOUTH TWICE A DAY active Not Available Not Available No t Available ketoconazole 2 % topical cream APPLY TOPICALLY DAILY active Not Available Not Available No t Available sertraline 50 mg tablet TAKE 1 TABLET BY MOUTH EVERY DAY active Not Available Not Available No t Available hydrocortiso ne 1 % topical cream with perineal applicator APPLY TOPICALLY 3 TIMES A DAY NEEDED FOR SKIN IRRITATION FOR 2 WEEKS active Not Available Not Available Not Available Vitamin D3 25 mcg (1,000 unit) capsule TAKE 1 CAPSULE BY MOUTH EVERY DAY active Not Available Not Available No t Available Symbicort 160 mcg-4.5 mcg/actuatio n HFA aerosol inhaler INHALE 2 PUFFS BY MOUTH TWICE A DAY active Not Available Not Available No t Available diclofenac 1 % topical gel APPLY 4 G TOPICALLY 4 TIMES A DAY APPLY TO BILATERAL KNEES 4 TIMES A DAY DO NOT USE WITH IBUPROFEN active Not Available Not Available No t Available Incruse Ellipta 62.5 mcg/actuatio n powder for inhalation INHALE 1 PUFF BY MOUTH EVERY DAY active Not Available Not Available No t Available Wegovy 1 mg/0.5 mL subcutaneous pen injector INJECT 1MG UNDER THE SKIN EVERY 7 DAYS FOR 4 WEEKS active Not Available Not Available No t Available Paxlovid 300 mg (150 mg x 2)-100 mg tablets in a dose pack TAKE TWO 150 MG NIRMATRELVI R W/ ONE 100 MG RITONAVIR TAB BY MOUTH TWICE A DAY FOR 5 DAYS active Not Available Not Available No t Available Zepbound 5 mg/0.5 mL subcutaneous pen injector INJECT 5 MG (0.5 ML) SUBCUTANEOU SLY EVERY WEEK FOR 4 WEEKS active Not Available Not Available No t Available Zepbound 2.5 mg/0.5 mL subcutaneous pen injector INJECT 2.5 MG (0.5 ML) SUBCUTANEOU SLY EVERY WEEK FOR 4 WEEKS FOR 4 WEEKS active Not Available Not Available No t Available Vitals Date Recorded Body height Provider Name an d Address Organization Details Last Updated DateTime 08/21/2024 157.48 cm Sharyn rodriguez [facility] 08/21/2024 14:35:49 Date Recorded Body height Provider Name an d Address Organization Details Last Updated DateTime 10/02/2024 157.48 cm Sharyn rodriguez [facility] 10/02/2024 15:17:08 Date Recorded Body height Provider Name an d Address Organization Details Last Updated DateTime 11/01/2024 157.48 cm Chelsie Tapia [facility] 11/01/2024 15:49:05 Social History None recorded. Functional Status None recorded. Mental Status None recorded. Family History Nothing Reported. Medical History No medical history recorded. Gynecological HistoryNo gynecological history recorded. Obstetrics History GPAL:G 0 P 0 0 0 0 Past Encounters Encounter ID Performer Location Encounter Start Date Encounter Closed Date Diagnosis/Indication Diagnosis SNOMED-CT Code Diagnosis ICD10 Code Diagnosis IMO Codes Diagnosis Note [id number] MD KENDALL Stapleton [address] [facility] [address] 08/21/2024 13:59:43 08/28/2024 12:48:44 Pain in bilateral feet 5810090709 3836111 M79.671 M79.411 1995309 Dysfunctio n of posterior tibial tendon of right foot 2447279107 445889 M76.821 09331791 Talipes planus 72100619 M21.41 M21.42 [id number] MD KENDALL Stapleton [address] [facility] [place] [address] 10/02/2024 15:11:24 10/17/2024 12:11:58 Dysfunction of posterior tibial tendon of right foot 1395317088 589911 M76.821 11619462 Talipes planus 22050863 M21.41 M21.42 02592392 Ankle pain 663402235 M25 .571 54665480 Acquired pes planus 5 08757 M21.41 [id number] MD KENDALL Stapleton [place] [address] [facility] [place] [address] 11/01/2024 15:43:49 11/12/2024 09:40:00 Acquired pes planus 314796347 M21.41 27286197 Arthritis of right foot 1172486647 142202 M19.071 [id number] Health Concerns Section Related Observation LastModified by Organization Detai ls LastModified Time None Recorded Concern Status LastModified by Organization Details LastModified Time None Recorded Advance Directives Directive None Recorded Payers Insurance Date Sequence Insurance Name Policy Number Policy Jules Covered Member ID Jules Member ID Guarantor Name 11/01/2024 1 [facility] (HMO) [id number] Gisel Mora [id number] Gisel Mora 11/01/2024 1 [facility] [id number] Gisel Mora [id number] Gisel Mora 11/12/2024 1 [facility] [employer] [facility] DIRECT [employer]CTORCARE TYPE I (HMO) [id number] Gisel Mora [id number] Gisel Morgan Notes Date Note Type Note Provider Name and Address Organization Details Recorded Time 08/21/2024 text/html ROS as noted in the HPI Sid Wasserman MD [address] [facility], [place], [address], [facility] 08/21/2024 14:40:56 10/02/2024 text/html ROS as noted in the HPI Sid Wasserman MD [address] [facility], [place], [address], [facility] 10/02/2024 15:53:06 11/01/2024 text/html ROS as noted in the HPI Sid Wasserman MD [address] [facility], [place], [address], [facility] 11/01/2024 16:42:34 OBGyn Episode No OBEpisode recorded.
== END 2025-02-27 13:39 | disposition home or self-care (01) ==
LOC: HO.MAMMO 13:38
PROVIDERS: PCP Internal Medicine; Visit Provider Internal Medicine
DX: N64.89 Other specified disorders of breast (principal)
CPT/HCPCS: 76642; 77061; 77065

== ENCOUNTER → 2025-02-27 14:00 | Outpatient (BNV) | payer OTHER, SELFPAY | PROVIDERS: PCP Internal Medicine; Visit Provider Internal Medicine | DX: N60.01 Solitary cyst of right breast (principal) | CPT/HCPCS: 76642; 77061; 77065 ==

== ENCOUNTER 2025-03-11 09:58 | Outpatient (AMB) | payer OTHER, SELFPAY ==
[2025-03-11 10:09] VITALS: BP 110/58; PULSE 96; TEMP 36.8; O2SAT 99; BMI 43.3
--- NOTE | 2025-03-11 10:09 | MHC.PC.OV ---
Vital Signs 03/11/25 10:09 Height 5 ft 2 in Weight 237 lb BMI 43.3 BP 110/58 L Blood Pressure Location Lt brachial Position Sitting Pulse 96 Pulse Source Pulse Oximeter Temp 98.3 F Temp Source Temporal Artery Scan Pulse Oximetry (%) 99 Oxygen Delivery Method Room Air Intake Visit Reasons: Shaking hands Allergies Seasonal Allergies Allergy (Severe, Verified 03/11/25 10:16) Difficulty Breathing semaglutide (From [place]v) Adverse Reaction (Intermediate, Verified 03/11/25 10:16) Diarrhea Medication List - Last Reconciled 03/11/25 by Tatum Florian PA-C albuterol sulfate 2.5 mg (3 mL) inhalation Q6H PRN 30 days albuterol sulfate 90 mcg/actuation 2 inhalations inhalation Q6H PRN 30 days budesonide-formoterol 160-4.5 mcg/actuation 2 puffs inhalation BID 90 days bupropion HCl XL 150 mg PO QAM 90 days cholecalciferol (vitamin D3) 25 mcg PO DAILY 90 days [compression stockings As directed] cyclobenzaprine 5 mg PO BEDTIME PRN 30 days diclofenac sodium 1% (Arthritis Pain (diclofenac)) 4 grams topical QID furosemide 20 mg PO DAILY 90 days gabapentin 100 mg PO BID hydrocortisone 1% (Anti-Itch (hydrocortisone)) 1 appl topical TID PRN 2 weeks ibuprofen 400 - 800 mg (1 - 2 x 400 mg) PO BID ketoconazole 2% 1 appl topical DAILY 30 days montelukast (Singulair) 10 mg PO BEDTIME 90 days naltrexone 50 mg PO DAILY 90 days nebulizers As directed sertaconazole 2% (Ertaczo) 1 appl topical BID 30 days umeclidinium 62.5 mcg/actuation (Incruse Ellipta) 1 inh inhalation DAILY 30 days Tobacco use date assessed: 12/17/24 Dental Screening Dental Screen Date: 12/17/24 HPI Shaking hands HPI Details 55 year old female with past medical history of fatty liver, HPV, MARSHALL and impaired glucose tolerance last seen by Dr. Zheng 11/2024 coming in for acute problem.? Patient tells us today for the last two months she has been having a tremor in both hands. She notices it primarily when she is holding her phone but over the last several weeks her family and friends have been noticing it. She has been seen in the past for this concern and was referred to neurology but did not follow up. She denies any numbness, pain or tingling in bilateral hands but does feel they are weaker. When she is at rest she does not notice the tremor. She has no other symptoms along with this tremor. She does also mention a possible episode of hypoglycemia that occurred several weeks ago. She was standing at the sink when she felt lightheaded and had to sit down and rest. This episode resolved spontaneously. [facility] Medical History Mild episode of recurrent major depressive disorder Osteoarthritis of ankles, bilateral Lymphedema Physical exam Morbid obesity Abnormal Pap smear of cervix Bronchitis Pleuritic chest pain Venous insufficiency Osteopenia (~2019) Tubular adenoma of colon (~2016) Eosinophilia Chronic cough Vitamin D deficiency Vitamin B1 deficiency BMI 40.0-44.9, adult Cholelithiasis Right hip pain Abdominal bloating Asthma Lupus Hx of coronary artery disease History of asthma History of diastolic dysfunction Hx of varicose veins History of vitamin D deficiency Hx of hyperlipidemia Surgical History History of loop electrical excision procedure (LEEP) History of cardiac cath History of colonoscopy History of foot surgery History of hysteroscopy History of tubal ligation (~1992) History of ear surgery Family History Father Diabetes Cancer Colon cancer Paternal Grandfather Diabetes Maternal Aunt Cancer History of breast cancer Mother Sudden Sister Rheumatoid arthritis Hypothyroidism Sister Rheumatoid arthritis Sister No problems noted. Brother Diabetes Brother No problems noted. Son No problems noted. Daughter No problems noted. Daughter No problems noted. Daughter Lupus Social History Housing: House Alcohol intake: never Patient Tobacco Use Status: Never used Tobacco e-Cigarette/Vaping Use: Never Used Second Hand Smoke Exposure: No service: No Current occupational status: employed Current occupational exposures/hazards: No Sexual orientation: Straight/Heterosexual Gender identity: Female Cognitive needs: No Hearing needs: No Vision needs: Yes Questionnaire PHQ-9 Over the last 2 weeks, how often have you been bothered by any of the following problems? 1. Little interest or pleasure in doing things: not at all 2. Feeling down, depressed, or hopeless: not at all 3. Trouble falling or staying asleep, or sleeping too much: not at all 4. Feeling tired or having little energy: not at all 5. Poor appetite or overeating: not at all 6. Feeling bad about yourself - or that you are a failure or have let yourself or your family down: not at all 7. Trouble concentrating on things, such as reading the newspaper or watching television: not at all 8. Moving or speaking so slowly that other people could have noticed. Or the opposite - being so fidgety or restless that you have been moving around a lot more than usual: not at all 9. Thoughts that you would be better off or of hurting yourself in some way: not at all Total score: 0 Depression Screening Interpretation: Negative Depression Screening Done: Yes 28371 - PHQ-9 Billing: Yes Source: Developed by Drs. Geovany Meadows, Marcella Rodriguez, Chapo Newton and colleagues, with an educational karey from [employer]. Thrive Questionnaire Date Thrive assessed: 12/17/24 I am a: Patient What is your living situation today?: I have a steady place to live Within the past 12 months, did the food you bought not last and you didn't have the money to get more?: Sometimes True Within the past 12 months, did you worry whether your food would run out before you got money to buy more?: Sometimes True Do you have trouble paying for medicines?: I choose not to answer this question Do you have trouble getting transportation to medical appointments?: No Do you have trouble paying your heating and electricity bill?: No Do you have trouble taking care of your child, family member or friend?: No Do you have trouble with day-to-day activities such as bathing, preparing meals, shopping, managing finances, etc.?: No Are you currently unemployed and looking for a job?: No Are you interested in more education?: No Please select the resources that you would like help with: None Currently or been in a relationship where the following occur: No concerns reported THRIVE Score: 2 AUDIT C Alcohol Use Questionnaire (AUDIT-C) 1. How often do you have a drink containing alcohol?: Never Total Score: 0 Score Reviewed/Action Taken: No JANELL-7 AMB Questionnaire JANELL-7 Date JANELL - 7 assessed: 12/17/24 Feeling nervous, anxious, or on edge: 1 = Several days Not being able to stop or control worryin = Several days Worrying too much about different things: 0 = Not at all Trouble relaxin = Not at all Being so restless that it is hard to sit still: 0 = Not at all Becoming easily annoyed or irritable: 0 = Not at all Feeling afraid as if something awful might happen: 0 = Not at all Total JANELL-7 score (0-4 normal; 5-9 mild; 10-14 moderate; 15-21 severe): 2 Source: Developed by Drs. Geovany Meadows, Marcella Rodriguez, Chapo Newton and colleagues, with an educational karey from [employer]. Review of Systems Const Denies body aches, Denies chills, Denies fever(s) and Denies poor appetite Eyes Reports no additional complaints ENT Reports as per HPI Card Reports as per HPI, Denies chest pain and Denies dyspnea Resp Denies dyspnea Musc Reports as per HPI and Denies abnormal gait Skin/Breast Reports system reviewed and no additional complaints, except as documented Neuro Reports as per HPI and Denies abnormal gait Psych Reports no additional complaints Physical exam (Primary Care) Vital Signs: Last Vital Signs Temp 98.3 F 03/11/25 10:09 Pulse 96 03/11/25 10:09 Pulse Ox 99 03/11/25 10:09 Oxygen Delivery Method Room Air 03/11/25 10:09 BMI result Body Mass Index 43.3 Tobacco/Smoking Status: Tobacco use Status Tobacco use date assessed 12/17/24 03/11/25 10:11 Patient Tobacco Use Status Never used Tobacco 03/11/25 10:11 e-Cigarette/Vaping Use Never Used 03/11/25 10:11 PHQ-9: PHQ-9 Score PHQ-9: Total score 0 03/11/25 10:11 Depression Screening Interpretation: Negative Thrive Assessment: Date of Thrive Assessment Date Thrive assessed 12/17/24 03/11/25 10:11 Currently or been in a relationship where the following occur: No concerns reported Narrative Physical Exam - Cardiovascular: Heart sounds are normal. - Peripheral pulses are palpated. - Respiratory: Lungs are clear to auscultation. - Neurological: Cranial nerves II-XII are grossly intact. - Strength is 5/5 in bilateral upper and lower extremities. - Ueeyeo-rt-ynxs testing is normal. - Romberg test is negative. Const General: cooperative, healthy appearing, comfortable and no acute distress Orientation/consciousness: patient oriented x3 HENMT Head: Yes normocephalic Ears: hearing grossly normal bilaterally General nose exam: Normal external nose present Eyes General: appearance normal, both eyes and all related structures Conjunctivae: conjunctivae normal Pupils: Equal, round and reactive pupils present Neck Neck: Yes full ROM and Yes no lymphadenopathy Resp Effort & Inspection: normal respiratory effort Auscultation: clear to auscultation bilaterally, no crackles, no rales, no rhonchi and no wheezes Cardio Rate: regular rate Rhythm: regular rhythm Skin General skin exam: no rashes or lesions noted Neuro General: patient oriented x3 Cranial nerves: Yes CN's II-XII intact bilaterally, Yes Facial sensation intact/muscles of mastication intact, Yes Equal, round and reactive pupils present, Yes Bilaterally intact EOM present, Yes Nystagmus not present, Yes Normal facial strength present, Yes Midline tongue present and Yes Ability to bilaterally elevate shoulders present Cognition (Neuro): normal cognition Gait exam (Neuro): Normal gait present Motor exam (neuro): 5/5 motor strength present throughout and Tremors during motor activity present (nicolette hand tremor not present at rest ) Coordination: tiywhl-dv-meld test normal Romberg Test: Negative Extrem General: Yes normal to inspection, Yes full ROM and No edema Psych Affect: normal affect Attitude: cooperative Insight: Good insight present (Psych) Judgement: Good judgement present (Psych) Coding Level of Care Code Est Pt Level 3 (28924) Diagnoses Tremors of nervous system R25.1 Impaired glucose tolerance R73.02 Additional Codes PHQ-9 - 98358 - PHQ-9 Billing: Yes ([id number]) Assessment & Plan Assessment & Plan (1) Tremors of nervous system: Code(s): R25.1 - Tremor, unspecified Category: Medical Plan: The patient's physical exam is reassuring and does not show major red flags for an intracranial process. The differential includes essential tremor, as symptoms worsen when focusing on the tremor. To rule out metabolic causes, blood work will be ordered to check thyroid function and blood glucose levels. A referral to Neurology will be placed for further evaluation and management, particularly because the first-line medication, propranolol, is contraindicated due to her history of asthma. Tremor not present at rest. (2) Impaired glucose tolerance: Code(s): R73.02 - Impaired glucose tolerance (oral) Category: Medical Plan: The patient reports episodes of feeling as though she needs sugar and a prior episode of presyncope that improved with consuming candy. Blood work, including a check of blood sugar levels, will be ordered to investigate these incidents. she was also provided a Rx for BGL monitor to check sugars during these times. Plan I discussed with the patient that her exam today was reassuring and did not raise immediate concerns for a significant issue within the brain. I explained that her symptoms could be consistent with an essential tremor, which often becomes more pronounced when focusing on tasks. I outlined the plan to first order blood work to rule out other causes, such as thyroid or blood sugar abnormalities. I informed her that a referral to Neurology is necessary, as the first-line medication, propranolol, is contraindicated due to her history of asthma, and a specialist may need to consider other medications. Orders: Orders Free T4 (Free Thyroxine) Today R25.1 - Tremor, unspecified Comprehensive Met. Panel Today R25.1 - Tremor, unspecified TSH reflex Free T4 Today R25.1 - Tremor, unspecified Hemoglobin A1c Today R25.1 - Tremor, unspecified Complete Blood Count Auto Diff Today R25.1 - Tremor, unspecified Referrals Neurology Referral R25.1 - Tremor, unspecified Medications: New lancets (FreeStyle Lancets) As directed; to check sugars daily 100 ea 0RF R73.02 - Impaired glucose tolerance (oral) blood-glucose meter (Freestyle InsuLinx meter) As directed; to check sugars daily 1 ea 0RF R73.02 - Impaired glucose tolerance (oral) blood sugar diagnostic (Freestyle InsuLinx strips) As directed; to check sugars daily 50 ea 0RF R73.02 - Impaired glucose tolerance (oral)
== END 2025-03-11 10:51 | disposition home or self-care (01) ==
LOC: HO.HMCH 09:58
PROVIDERS: PCP Internal Medicine
DX: R25.1 Tremor, unspecified (principal); R73.02 Impaired glucose tolerance (oral)

== ENCOUNTER 2025-03-11 09:58 | Outpatient (REF) | payer OTHER, SELFPAY ==
[2025-03-11 10:50] LABS: MANUAL DIFF FLAG NO
[2025-03-11 11:09] LABS: Hematocrit 39.8 % (37.0-47.0); Hemoglobin 13.1 g/dl (12.0-16.0); Imm Gran Abs Auto 0.03 X10*3/uL (0.00-0.03); Imm Gran Pct Auto 0.4 % (0.0-0.4); Lymphocytes Absolute Auto 1.7 X10*3/uL (1.2-4.9); Mean Corpuscular HGB Conc 32.9 g/dl (31.0-35.0); Mean Corpuscular Hemoglobin 27.8 pg (27.0-33.0); Mean Corpuscular Volume 84.3 fL (80.0-98.0); NRBC Abs Auto 0.000 X10*3/uL (0.0-0.012); NRBC Pct Auto 0.0 /100WBC (0.0-0.2); Platelet Count 165 X10*3/uL (160-400); Red Blood Count 4.72 X10*6/uL (4.20-5.50); White Blood Count 8.6 X10*3/uL (4.8-10.8)
[2025-03-11 12:31] LABS: Alanine Aminotransferase 28 U/L (0-31); Albumin Level 4.4 g/dL (3.5-5.0); Alkaline Phosphatase 127 U/L (39-117); Anion Gap 12 (12-20); Aspartate Amino Transferase 22 U/L (5-31); Blood Urea Nitrogen 10 mg/dL (9-16); Calcium 9.7 mg/dL (8.4-10.2); Carbon Dioxide 26 mmol/L (22-29); Chloride 106 mmol/L (96-108); Estimated Glomerular Filt Rate > 60; Potassium 3.9 mmol/L (3.3-5.1); Sodium 140 mmol/L (135-145); Total Protein 7.4 g/dL (6.5-8.0)
[2025-03-11 12:46] LABS: Free T4 (Free Thyroxine) 0.95 ng/dL (0.71-1.85)
--- OUTSIDE RECORDS SUMMARY | 2025-03-11 22:02 | XMS_ITS | Data Portability ---
Author Organization [facility], KENDALL Cordero Address [address] [place] [address] Care Team Providers Care Industrial Maintenance Millwright Name Role Phone ABNER VALVERDE Primary Care Provider Assessment Encounter Date Assessment Date Assessment LastModified by Organization Details LastModified Time 08/21/2024 08/21/2024 ICD-10: Right posterior tibial tendon dysfunction, bilateral pes planus CHIEF COMPLAINT: Right foot and ankle pain HISTORY OF PRESENT ILLNESS: Gisel is a very pleasant 54-year-old here today with her daughter who helps with New Zealander translation who is experienced more than one [...] obtained and reviewed by me today at [facility], demonstrating pes planovalgus with significant sag [...] today with her daughter who helps with [place] Zealander translation who has experienced more than one [...] Telephone Encounter Patient Location: Home Physician Location: [place], [place] Office Time spent with patient: 16 [...] as a pinching sensation. [facility] external [facility] and this has been [...] recommended she continue with her orthotics and [facility] ankle brace. I have suggested orthopedic shoes from either [employer] or [employer]. I have recommended weight loss through dietary [...] the same service when rendered via a rqhm-za-ubhq interaction. I discussed with the patient the [...] hindfoot arthritis 2024 025 HAKAN [facility], [address], [address], [place], [address], 13:02:36 XR, ankle + foot - room 108 new nicolette 3v foot 2v ankle wb 2024 025 cstamand [facility], [address], [place], [address], 12:48:44 Medication Orders None recorded. Patient TargetsNo [...] a4ajBk vP9nXo QUaueC m3YtLR FvZlgJ JJ8mAn HZtai3 [id number] AC0Kla n%2BDV aqvKiQ trMwF INTERFACE [facility] Office [address] [facility] [address], [place], [address], 08/21/2024 14:21:35 08/22/19 25 08/21/2024 XR, ankle + foot [email or web address] ?Encry pted=s hAaTro YD8dLq bEUv6g %2BXZw aYqtaq 0bqfl% 2Fg9IQ a4ajBk vP9nXo QUaueC m3YtLR FvZlgJ JJ8mAn HZtai3 0m3209 AC0Kla n%2BDV aqvKiQ trMwF INTERFACE [facility] Office [address] [facility] [address], [place], [address], 08/21/2024 14:21:37 10/30/19 25 10/22/2024 MRI, ankle , w/o contr ast No observ ation record ed. [facility] [address] [facility] [address], [place], [address], 10/30/2024 06:49:44 Result Notes Documentation Provider Name and Address Organization Details Recorded Time Xr, Ankle + Foot : [email or web address]? Encrypted=ewZsEilFU0bBpgF Uv6g%7TREmjTwkvq5pblx%2Fg 2NHx3zlZlnC4wThVTenqHr4If SCUxLdqZPL8vAjPLyxj98e567 7XD1Dpeb%2BDVaqvKiQtrMwF Not Available [facility] 08/21/2024 14:2 1:35 Xr, Ankle + Foot : [email or web address] Encrypted=noLgYbaLY1uRbiP Uv6g%0DNHtzZrqom8lmsg%2Fg 5BTz3lzMgdY2mAiXDcgnOo1Gy RSIhDpiSOH8cDfNHoqb13z922 7PS6Rokt%2BDVaqvKiQtrMwF Not Available [facility] 08/21/2024 14:2 1:37 Problems Name Problem SNOMED Code Status Onset Date Resolution Date Notes Provider Name and Address Organization Details Recorded Time Acquired pes planus 225881559 Active 2024 Sid Wasserman MD [address], [place], [address], [facility] 5 16:42:14 Arthritis of right foot 87570520633391 04 Active 2024 Sid Wasserman MD [address] [facility] [address], [facility] [place], [address], [facility] 5 16:42:20 Problem Notes [...] Updated DateTime 08/21/2024 157.48 cm Sharyn rodriguez [facility] 08/21/2024 14:35:49 Date Recorded Body height Provider Name an d Address Organization Details Last Updated DateTime 10/02/2024 157.48 cm Sharyn rodriguez [facility] 10/02/2024 15:17:08 Date Recorded Body height Provider Name an d Address Organization Details Last Updated DateTime 11/01/2024 157.48 cm Chelsie Tapia [facility] 11/01/2024 15:49:05 Social History None recorded. Functional Status None recorded. Mental Status None recorded. Family History Nothing Reported. Medical History No medical history recorded. Gynecological HistoryNo gynecological history recorded. Obstetrics History GPAL:G 0 P 0 0 0 0 Past Encounters Encounter ID Performer Location Encounter Start Date Encounter Closed Date Diagnosis/Indication Diagnosis SNOMED-CT Code Diagnosis ICD10 Code Diagnosis IMO Codes Diagnosis Note [id number] MD KENDALL Stapleton [address] [facility] [address] [facility] [place] [address] 08/21/2024 13:59:43 08/28/2024 12:48:44 Pain in bilateral feet 5699870412 2803406 M79.671 M79.833 6352648 Dysfunctio n of posterior tibial tendon of right foot 3687754107 747294 M76.821 26338276 Talipes planus 93068628 M21.41 M21.42 [id number] MD KENDALL Stapleton [address] [facility] [place] [address] 10/02/2024 15:11:24 10/17/2024 12:11:58 Dysfunction of posterior tibial tendon of right foot 5125359324 922194 M76.821 32790768 Talipes planus 62600396 M21.41 M21.42 52173325 Ankle pain 669064167 M25 .571 68687097 Acquired pes planus 5 31503 M21.41 [id number] MD KENDALL Stapleton [facility] [place] [address] 11/01/2024 15:43:49 11/12/2024 09:40:00 Acquired pes planus 377365049 M21.41 81978938 Arthritis of right foot 0018264944 502347 M19.071 [id number] Health Concerns Section Related Observation LastModified by Organization Detai ls LastModified Time None Recorded Concern Status LastModified by Organization Details LastModified Time None Recorded Advance Directives Directive None Recorded Payers Insurance Date Sequence Insurance Name Policy Number Policy Jules Covered Member ID Jules Member ID Guarantor Name 11/01/2024 1 [facility] PL[facility] (HMO) [id number] Gisel Mora [id number] 1 Gisel Mora 11/01/2024 1 [facility] [id number] Gisel Mora [id number] Gisel Mora 11/12/2024 1 [facility] [employer] [facility] [employer]CTORCARE TYPE I (HMO) [id number] Gisel Mora [id number] Gisel Morgan Notes Date Note Type Note Provider Name and Address Organization Details Recorded Time 08/21/2024 text/html ROS as noted in the HPI Sid Wasserman MD [address] [facility], [place], [address], [facility] 08/21/2024 14:40:56 10/02/2024 text/html ROS as noted in the HPI Sid Wasserman MD [address] [facility], [place], [address], [facility] 10/02/2024 15:53:06 11/01/2024 text/html ROS as noted in the HPI Sid Wasserman MD [address] [facility], [place], [address], [facility] 11/01/2024 16:42:34 OBGyn Episode No OBEpisode recorded.
== END 2025-03-11 09:59 | disposition home or self-care (01) ==
LOC: HO.LAB 09:58
PROVIDERS: PCP Internal Medicine
DX: R25.1 Tremor, unspecified (principal); R73.02 Impaired glucose tolerance (oral); Z13.39 Encounter for screening examination for other mental health and behavioral disorders
CPT/HCPCS: 36415; 80053; 83036; 84439; 84443; 85025; 96127